=== PATIENT | female | born 1950 | race Caucasian/White ===

== ENCOUNTER 2016-10-30 15:33 | Outpatient (CLI) | payer OTHER | END 2016-10-30 15:34 | disposition home or self-care (01) | DX: C50.919 Malignant neoplasm of unspecified site of unspecified female breast (principal); C79.51 Secondary malignant neoplasm of bone; G89.29 Other chronic pain; F32.9 Major depressive disorder, single episode, unspecified; K30 Functional dyspepsia; F41.9 Anxiety disorder, unspecified; M19.90 Unspecified osteoarthritis, unspecified site; D61.818 Other pancytopenia; R11.0 Nausea; R68.81 Early satiety; N30.90 Cystitis, unspecified without hematuria; R20.0 Anesthesia of skin; L65.9 Nonscarring hair loss, unspecified; M54.6 Pain in thoracic spine; K59.00 Constipation, unspecified; F41.8 Other specified anxiety disorders ==

== ENCOUNTER 2016-11-27 | Outpatient (CLI) | payer OTHER | END 2016-11-27 15:31 | disposition home or self-care (01) ==

== ENCOUNTER 2016-12-25 15:32 | Outpatient (CLI) | payer OTHER | END 2016-12-25 15:33 | disposition home or self-care (01) | DX: Z51.5 Encounter for palliative care (principal); G89.3 Neoplasm related pain (acute) (chronic); C79.51 Secondary malignant neoplasm of bone; C50.919 Malignant neoplasm of unspecified site of unspecified female breast; M16.10 Unilateral primary osteoarthritis, unspecified hip; M47.9 Spondylosis, unspecified; K59.00 Constipation, unspecified; F32.9 Major depressive disorder, single episode, unspecified; R53.83 Other fatigue; Z79.891 Long term (current) use of opiate analgesic ==

== ENCOUNTER 2017-01-16 15:32 | Outpatient (CLI) | payer OTHER ==
[2017-01-16] MEDS ORDERED: GADOBUTROL 7.5 MMOL/7.5 ML VIAL IVP ONE (17:20)
== END 2017-01-16 15:33 | disposition home or self-care (01) ==
DX: C50.919 Malignant neoplasm of unspecified site of unspecified female breast (principal); C79.51 Secondary malignant neoplasm of bone; M48.58XD Collapsed vertebra, not elsewhere classified, sacral and sacrococcygeal region, subsequent encounter for fracture with routine healing; M51.26 Other intervertebral disc displacement, lumbar region; M51.24 Other intervertebral disc displacement, thoracic region; M47.896 Other spondylosis, lumbar region; M47.897 Other spondylosis, lumbosacral region; M43.16 Spondylolisthesis, lumbar region; M51.36 Other intervertebral disc degeneration, lumbar region; M51.37 Other intervertebral disc degeneration, lumbosacral region; M51.34 Other intervertebral disc degeneration, thoracic region

== ENCOUNTER 2017-01-22 15:19 | Outpatient (CLI) | payer OTHER | END 2017-01-22 15:20 | disposition home or self-care (01) | DX: Z51.5 Encounter for palliative care (principal); G89.3 Neoplasm related pain (acute) (chronic); C50.919 Malignant neoplasm of unspecified site of unspecified female breast; C79.51 Secondary malignant neoplasm of bone; M85.80 Other specified disorders of bone density and structure, unspecified site; Z79.891 Long term (current) use of opiate analgesic; R53.83 Other fatigue; R11.0 Nausea; F41.9 Anxiety disorder, unspecified; S32.10XA Unspecified fracture of sacrum, initial encounter for closed fracture; X58.XXXA Exposure to other specified factors, initial encounter; K59.00 Constipation, unspecified ==

== ENCOUNTER 2017-02-19 08:47 | Outpatient (CLI) | payer OTHER | END 2017-02-19 08:48 | disposition home or self-care (01) | LOC: RT 08:47 | PROVIDERS: ATTEND Nurse Practitioner Adult Health | DX: C79.51 Secondary malignant neoplasm of bone (principal); Z79.899 Other long term (current) drug therapy | CPT/HCPCS: 93005 ==

== ENCOUNTER 2017-02-19 13:15 | Outpatient (CLI) | payer OTHER ==
--- NOTE | 2017-02-22 06:27 | CONSULTATION NOTE ---
DATE OF CONSULTATION: 02/19/2017 00:00:00 REQUESTING PROVIDER: Dr. Christelle Feliz TIME OF VISIT: 1500 to 1600. The patient is seen by palliative care consult service to provide ongoing support for pain and sympto m management, as well as goals of care. BRIEF HISTORY OF PRESENT ILLNESS: This is a molly 66-year-old woman who has metastatic breast cancer , currently only involving the bone. She is currently being treated on Ibrance and letrozole since . She is receiving Zometa for the treatment of her bony METS. She most recently had a pelvic MRI of her sacrum, noting an H-type sacral insufficiency fracture, S2, as well as ongoing diffuse sclero tic metastatic disease changes as before and spinal canal narrowing with degenerative changes. Of not e, she also has edema in her left psoas muscle that is considered currently to reflect a grade 1 stra in. Since our last meeting on 01/22/2017, she has continued to have fluctuating pain management issue s, but has had it escalating over the last 2 weeks. Her pain description is actually somewhat a curio sity in the fact she is most uncomfortable when she first wakes up in the morning, after lying flat i n bed, to the point where she is tearful, 10/10 pain, and takes several hours of progressive rest and getting up before she can get comfortable and functional. She actually does fairly decent during the day and then again through the evening and nighttime when she is back in bed does have distress. She reports it is kind of a fiery, achy, radiating pain down her left side. It is hard to tell if it is sacral or L5 in description. Unfortunately, what has happened is she has needed increased oxycodone t o control the pain. She is managing with 20 mg tablets, about 10 in 24 hours. This is up from her bas gabriela previously, which was 6 to 8. She has been mostly wheelchair bound, trying to manage her weight bearing. She has continued with aqua therapy with PT and has really been trying to modify her treatm ent of her activity to try and alleviate pain. Her current long-acting pain medication dosing is meth adone 25 mg t.i.d. and this has managed to keep her quite stable over a longer period of time. Unfort unately, this has caused, as one would imagine, some increased distress and discouragement. Relieving factors include the oxycodone, and actually in the morning when she evacuates her bowels she gets so me decreased pressure as well. She is using other ways to try and manage including medication, distra ction and repositioning. She does continue to have some intermittent cramping and left lower quadrant pain, intermittent nause a and there is concern about her ongoing iron deficiency anemia. She is receiving an iron infusion to day. Is to receive a CT scan on Wednesday to see if there is anything contributing to her discomfort an d looking for an underlying cause of her anemia. She has had 3 positive Hemoccult slides, but she als o has longstanding history of hemorrhoids. REVIEW OF SYSTEMS CONSTITUTIONAL: She continues to have some significant fatigue, intermittent nausea, her appetite has been okay, and intermittent anxiety related to the changes in her status. CARDIOVASCULAR: No chest pain. RESPIRATORY: Some increased shortness of breath. GASTROINTESTINAL: She is managing her bowels on her current regimen, intermittent nausea managed with ondansetron at least once or twice a day. : Some urgency and frequency, particularly in the nighttime hours. MUSCULOSKELETAL: Overall increased weakness. INTEGUMENTARY: Some hair thinning. NEUROLOGIC: Does have baseline numbness in her feet. PSYCHIATRIC: Has been somewhat an emotional roller coaster, particularly with the increase in pain. ENDOCRINE: No history of diabetes or thyroid problems. HEMATOLOGIC/IMMUNOLOGIC: Continues with a hematocrit of 29.3 had a white count of 2.2, platelets 231. Her CA 15-3 has been stable at 11.2. PHYSICAL EXAMINATION GENERAL APPEARANCE: Her color is slightly pale. She does look quite fatigued. Her voice is modulated. HEENT: Eyes are normal on inspection. Mucous membranes are moist. Trachea midline. RESPIRATORY: Breath sounds are clear. MUSCULOSKELETAL: She does have pain behaviors with transfer and ambulation. She is mostly in the whee lchair for exam. CARDIOVASCULAR: Pulse is 72. ABDOMEN: Rounded and soft, not palpated. SKIN: Color pale. EXTREMITIES: She does have her support hose on. PALLIATIVE CARE DISCUSSION: WHO IS PRESENT: Myself and her partner PWinifred Again, explored her current r egimen for pain in the context of how she is feeling, it has been "worse than it has ever been in her life." It has added much to her physical, emotional and existential distress. Is feeling somewhat ov erwhelmed with just the increased dependency and increased distress with this. We did spend quite a b it of time discussing weighing benefits and burdens of intervening with her pain management and also just the uncertainty of the implications for the future as far as dependency. They have finished thei r modifications to their home, which have been of help. ASSESSMENT: This is a 66-year-old woman with escalation continued with her pain, does present with ac quentin on chronic pain that is much more impactful currently, both with physical and emotional distress. Currently with some anxiety, pending workup for her anemia as well. RECOMMENDATIONS/COUNSELING DONE 1. Acute on chronic pain secondary to continued escalating pain in her sacral area. Also presents now with some left leg radiating pain that is quite impactful and distressful. In discussing weighing be nefits and burdens about her pain regimen, she is pushing as far as full equivalents if we do increas e her pain regimen up to 100 mg close, which would be a 10% to 15% increase. I did have her get an EK G for monitoring and her QTc was 428, which is within the safe range. Will go ahead and titrate her u p quite slowly to be able to monitor any side effects including sedation, hoping for improved respons e. Will increase her 5 mg weekly x3 weeks to try and address her escalating pain syndrome. She will c ontinue to get the Zometa as well as work with aqua therapy, which actually does help her and this hernandez s not been escalating her pain. It is of note that it does appear something about nighttime lying in the bed has added or increased her pain. Regarding this, it is unclear if this has to do with her bow els, as she does usually evacuate in the morning, or if it has to do with positioning. She will do so me experiments as far as observation and try some napping and see if this escalates her pain as well. 2. Constipation. She is titrating her medications appropriately. She is due to get a CT scan of her a bdomen to evaluate her bowel status. There is certainly high anxiety and concern about having to part icipate in a colonoscopy given her anastomosis and scar tissue. 3. Fatigue, remains multifactorial in origin. She is pacing her activity, has had increased limitatio ns because of her pain exacerbation. She is using her wheelchair mostly but is participating in PT as well to try and keep her strength up. TIME SPENT: 60 minutes with greater than 50% of this done in counseling and coordination of care. I d id offer her a followup referral to Dr. Goldstein spinal specialist at [facility]. Will keep that in mind bu t continue to work with her current regimen and follow as she is getting her anemia worked up as well . JOB #: [id number] EXT JOB #:[id number]
== END 2017-02-19 13:16 | disposition home or self-care (01) ==
LOC: PC 13:15
PROVIDERS: ATTEND Nurse Practitioner Adult Health
DX: Z51.5 Encounter for palliative care (principal); G89.29 Other chronic pain; K59.00 Constipation, unspecified; R53.83 Other fatigue; C50.919 Malignant neoplasm of unspecified site of unspecified female breast; C79.51 Secondary malignant neoplasm of bone; R60.0 Localized edema; Z79.891 Long term (current) use of opiate analgesic; Z99.3 Dependence on wheelchair; R10.32 Left lower quadrant pain; D64.9 Anemia, unspecified; R11.0 Nausea; F06.4 Anxiety disorder due to known physiological condition; R06.02 Shortness of breath; R35.0 Frequency of micturition; R39.15 Urgency of urination; R20.0 Anesthesia of skin

== ENCOUNTER 2017-02-23 08:07 | Outpatient (CLI) | payer OTHER ==
[2017-02-23] MEDS ORDERED: IOPAMIDOL-300 50 ML VIAL PO ONE (09:46)
[2017-02-23] MEDS ORDERED: IOPAMIDOL-300 100 ML VIAL IVP ONE (09:46)
== END 2017-02-23 08:08 | disposition home or self-care (01) ==
DX: D64.9 Anemia, unspecified (principal)
CPT/HCPCS: 74177; Q9967

== ENCOUNTER 2017-03-26 15:28 | Outpatient (CLI) | payer OTHER ==
--- NOTE | 2017-03-28 11:35 | CONSULTATION NOTE ---
DATE OF CONSULTATION: 03/26/2017 00:00:00 REQUESTING PROVIDER: Harish Feliz MD TIME OF VISIT: 1530 to 1630 hours. The patient is seen by the Palliative Care Consult Service to provide ongoing support for pain and sy mptom management, as well as goals of care. BRIEF HISTORY OF PRESENT ILLNESS UPDATE: This is a molly 66-year-old woman who has metastatic breast cancer stage IV, currently only involving the bone. She is currently being treated with Ibrance and letrozole since 09/2015. She is receiving Zometa for treatment of her bony metastases. She does have sacral insufficiency fractures and ongoing metastatic disease changes and spinal canal narrowing. Since our last meeting on 02/19/2017, the patient was admitted to the [facility] on 06/2017 secondary to chest pain. She was found to have a non-ST elevation myocardial infarction and h ad stenting of the circumflex artery, which was described as "tortuous." Since this was done, her kwabena st pain stopped. Her secondary diagnosis was Takotsubo cardiomyopathy with an ejection fraction of 30 %. She has currently been started on a low-dose Coreg, and the hope is to add ANGIE-inhibitor. She is a lso on an anticoagulant, Plavix, with the goal to discontinue this after a month. Her chronic anemia was found to be stable, she has chronic stage 3 kidney disease, and continues on with her pain relate d to her bony mets and fractures. SYMPTOM BURDEN: Her pain today is a 6/10. She did get some relief being somewhat more bedbound; in th e context of this, we had recently increased her methadone to 30 mg t.i.d. with improving control. rafal does use the oxycodone 20 mg tabs 6-8 tabs in 24 hours. She has been working over the last week to adjust her medications, as she was having a different experience in paying attention at the hospital. Currently she is satisfied with her regimen. She reports her fatigue is still a 6/10, though does fe el like this has improved somewhat with the stenting. Her drowsiness is a 3/10, nausea remains interm ittent at 2/10. Her appetite 2/10. Shortness of breath has improved to 3/10. Her mood has improved wi th a depression 2/10, anxiety 3/10, and perceives her current quality of life with best wellbeing 0, worst wellbeing 10 at a 3/10. She has been managing her bowels, and as well her constipation is curre ntly under control. ALLERGIES 1. DAYPRO, RASH. 2. SULFA INGREDIENT, RASH. SENSITIVITIES INCLUDE: 1. CODEINE. 2. ERYTHROMYCIN. 3. MINOCYCLINE. CURRENT MEDICATION LIST 1. Atorvastatin 40 mg daily. 2. Carvedilol 3.125 half tab q.12 hours. 3. Clopidogrel 75 mg daily. 4. Nitrostat 0.4 mg sublingual q.5 minutes p.r.n. chest pain; may repeat for a total of 3 doses. If c hest pain persists, call 911. 5. Aspirin 81 mg daily. 6. Citracel plus D3 Petites 400 mg/500 international units 2 tabs b.i.d. 7. Cholecalciferol vitamin D3 at 5000 mg daily. 8. Citalopram 10 mg daily. 9. Palbociclib 100 mg tabs 21 days, then off 7 days, then repeat cycle. 10. Letrozole 2.5 mg daily. 11. Liothyronine 25 mcg daily. 12. Metformin 500 mg b.i.d. 13. Methadone 10 mg tablets 3 tabs t.i.d. 14. Oxycodone 20 mg 1-2 tabs q.3 hours p.r.n. breakthrough pain. 15. Omeprazole 40 mg daily. 16. Ondansetron 4 mg up to t.i.d. p.r.n. nausea. 17. Polyethylene glycol MiraLax 17 grams 2/3 capful b.i.d., adjust p.r.n. 18. Senokot 8.6 tabs 1 tab q.a.m., 2 tabs q.p.m., adjust p.r.n. 19. Biotin 500 mcg 3 tabs p.o. daily. 20. Fexofenadine 180 mg p.o. daily. 21. Guaifenesin Mucinex 600 mg extended release p.o. b.i.d. 22. Currently discontinued her Celebrex and Cozaar. REVIEW OF SYSTEMS CONSTITUTIONAL: She overall is feeling like she is improving. She has significant weakness and overal l fatigue related to her adjusting blood pressure medications and hospitalization. CARDIOVASCULAR: No current chest pain. RESPIRATORY: Some still baseline shortness of breath but notes some improvement. GASTROINTESTINAL: Her bowels are moving well. GENITOURINARY: She has had some urgency and frequency. MUSCULOSKELETAL: She has not been able to participate in PT, so some diminished activity tolerance. INTEGUMENTARY: Hair thinning; has had a flare with some eczema. NEUROLOGIC: She has baseline numbness in her feet. PSYCHIATRIC: Please see palliative care discussion below. ENDOCRINE: Hypothyroidism. HEMATOLOGIC/IMMUNOLOGIC: Remains anemic but no decrease in hematocrit. PHYSICAL EXAMINATION GENERAL APPEARANCE: She is slightly pale, does appear fatigued, with some periorbital edema. Her voic e is modulated. She still has some residual almost PTSD from her experience she is describing. HEENT: Eyes are normal on inspection. Mucous membranes are moist. NECK: Trachea midline. RESPIRATORY: Her breath sounds are clear. No crackles, wheezes, or rhonchi. CARDIAC: Her pulse is 85 and regular. No increased change in heart sounds. Blood pressure 125/89; she has been tracking her blood pressures, have remained in a good range. ABDOMEN: Rounded, soft. SKIN: Color pale. EXTREMITIES: No lower extremity edema. PALLIATIVE CARE DISCUSSION/WHO IS PRESENT: Myself, the patient, and her , Cole.Siena. I did have a long discussion, in the context of patient's goals of care. In entering the healthcare system, I had to re iterate multiple times that she was a DO NOT ATTEMPT RESUSCITATION, even in the context of cardiac pr oblems; also did not want to be intubated. Given her goals, and setting those up, we looked at that h er focus is on quality of life, currently treating reversible conditions, and by the end of life a pe aceful and respectful at home. Thus under Medical Interventions, we did put LIMITED ADDITIONAL INTERVENTIONS, noting that we would w eigh the benefits and burdens depending on the intervention offered; further, to DETERMINE USE OR HERNANDEZ ITATION OF ANTIBIOTICS WHEN INFECTION OCCURS, WITH COMFORT THE GOAL - currently she would obviousl y treat, but more towards end of life maybe not; and MEDICALLY ASSISTED NUTRITION - at this point, as far as prolonging suffering at end of life, she would not want this. This did give pause to really bring her to a place of more vulnerability, of one's mortality, certain ly in how she envisions the end of her life was more likely to be in the context of her cancer diagno sis, and so this has really given pause, as far as putting some of her thoughts and feelings and wish es into writing. She was encouraged, in reflection of what had just happened, to put some value statements down, as fa r as what she really does want, as her time comes to an end, or if she were to have another sudden ca tastrophic event. She is in agreement to spend some time on that. Currently, though, she is, of cours e, quite shaken and was encouraged to just take that on when it made sense for her. ASSESSMENT: This is a 66-year-old woman with metastatic breast cancer, metastases to the bone. Curren jacklyny her pain is improving, I suspect this is related to her healing and her medication adjustments. S he recently added yet another diagnosis of cardiomyopathy and is still adjusting to the implications, as well as the medications needed to manage this new diagnosis. RECOMMENDATIONS/COUNSELING DONE 1. Chronic pain secondary to metastatic bone disease, healing sacral fractures, and ongoing chronic d egenerative joint disease. This does appear to have improved somewhat. She will continue on the curre nt regimen and continue logging to evaluate her patterns and response. 2. Constipation. She is titrating her medications appropriately. Her CT scan shows no areas of concer n regarding possible metastatic disease or colon cancer, so has been advised to follow up with a mirlande rointestinal doctor regarding colonoscopy. Her appointment is on 04/14/2016. She continues to struggl e, as far as the implications regarding this. 3. Fatigue, remains multifactorial in origin, now seems suspect that it may have been also impacted b y her cardiomyopathy and need for stenting. She remains anemic but does feel with a little bit more e nergy, is hoping her quality of life will continue to improve. She is on new medications regarding th is. 4. Cardiomyopathy. The patient is currently monitoring her blood pressure. Plan is to follow up with her internal medicine doctor on Wednesday, continue adjusting medications to maximum therapy, and follow up with Dr. Greenfield for ongoing support. 5. Advanced care planning. POLST was completed, goals were reviewed, and psychosocial support was giv en. Time spent 60 minutes, with greater than 50% of this done in evaluating symptom management, reviewing recent hospitalization, and advanced care planning and anticipatory guidance. JOB #: [id number] EXT JOB #:[id number]
== END 2017-03-26 15:29 | disposition home or self-care (01) ==
LOC: PC 15:28
PROVIDERS: ATTEND Nurse Practitioner Adult Health
DX: Z51.5 Encounter for palliative care (principal); G89.29 Other chronic pain; M19.90 Unspecified osteoarthritis, unspecified site; C79.51 Secondary malignant neoplasm of bone; C50.919 Malignant neoplasm of unspecified site of unspecified female breast; K59.00 Constipation, unspecified; I51.81 Takotsubo syndrome; R53.83 Other fatigue; F41.9 Anxiety disorder, unspecified; M84.454D Pathological fracture, pelvis, subsequent encounter for fracture with routine healing; I25.2 Old myocardial infarction; Z95.5 Presence of coronary angioplasty implant and graft; Z79.02 Long term (current) use of antithrombotics/antiplatelets; R11.0 Nausea; R06.02 Shortness of breath; F32.9 Major depressive disorder, single episode, unspecified; Z99.3 Dependence on wheelchair; Z79.891 Long term (current) use of opiate analgesic; Z79.899 Other long term (current) drug therapy; Z66 Do not resuscitate
CPT/HCPCS: 99215

== ENCOUNTER 2017-04-28 14:52 | Emergency (ER) | payer OTHER ==
[2017-04-28 15:24] LABS: BILIRUBIN,URINE NEGATIVE (NEGATIVE); UA CHARGE (STRIP ONLY) YES; UR CULTURE IF IND NOT INDICATED
--- NOTE | 2017-04-28 16:59 | ED Physician Documentation ---
PD HPI ABD PAIN - Stated complaint Stated Complaint: ABD PX - Chief complaint Chief Complaint: Abd Pain - History obtained from History obtained from: Patient, Family (spouse, PC Cable) - History of Present Illness Timing - onset: Other (She developed spasmodic upper abdominal cramping that is nonradiating this morning. She had it a few times and then it got worse after lunch. Each episode lasted a few minutes at a time. Is generally getting better now. She was quite nauseous with it but never vomited. No changes in her bowel movements. She did have a bowel movement this morning.) - Additional information Additional information: She has active breast cancer with bony metastasis, she has a history of ruptured diverticulitis with colostomy and subsequent takedown and also cholecystectomy. Review of Systems Ten Systems: 10 systems reviewed and negative Constitutional: denies: Fever, Chills Throat: denies: Dental pain / toothache Cardiac: denies: Chest pain / pressure, Palpitations Respiratory: denies: Dyspnea, Cough GI: denies: Diarrhea, Hematemesis, Bloody / black stool PD PAST MEDICAL HISTORY - Past Medical History Cardiovascular: Hypertension Respiratory: None Neuro: None Endocrine/Autoimmune: None, HyPOthyroidism GI: Diverticulitis : Chronic bladder infection, Kidney stones HEENT: Chronic hearing loss Psych: Depression, Anxiety Musculoskeletal: Osteoarthritis Derm: Eczema - Past Surgical History Past Surgical History: Yes General: Bowel surgery, Colonoscopy Ortho: Knee replacement - Present Medications Home Medications: Ambulatory Orders Medication Instructions Recorded Confirmed Aspirin 81 mg PO DAILY 02/16/13 04/27/17 Levothyroxine [Synthroid] 25 mcg PO DAILY 02/16/13 04/27/17 Polyethylene Glycol 3350 [Miralax] 0.66 cap PO DAILY PRN 03/26/15 04/27/17 Escitalopram Oxalate [Lexapro] 25 mg PO DAILY 05/21/15 04/27/17 Letrozole 2.5 mg PO DAILY 10/07/15 04/27/17 Palbociclib [Ibrance] 1 tab PO DAILY 10/07/15 04/27/17 Ondansetron HCl [Zofran] 4 mg PO Q6H PRN 11/15/15 04/27/17 Omeprazole [PriLOSEC] 20 mg PO DAILY 12/17/15 04/27/17 Oxycodone HCl 20 mg PO Q4H PRN 02/11/16 04/27/17 Phenazopyridine [Pyridium] 1 tab PO TID PRN 05/05/16 04/27/17 Prochlorperazine [Compazine] 5 mg PO ONCE PRN 05/05/16 04/27/17 Methadone 30 mg PO TID 06/30/16 04/27/17 Atorvastatin [Lipitor] 40 mg PO DAILY 03/30/17 04/27/17 Carvedilol 3.125 mg PO BID 03/30/17 04/27/17 Clopidogrel [Plavix] 75 mg PO DAILY 03/30/17 04/27/17 Gabapentin 300 mg PO TID 04/27/17 04/27/17 Nitroglycerin 0.4 mg SL TID 04/27/17 04/27/17 metFORMIN [Glucophage] 500 mg PO BIDWM 04/27/17 04/27/17 - Allergies Allergies/Adverse Reactions: Allergies Allergy/AdvReac Type Severity Reaction Status Date / Time oxaprozin [From Daypro] Allergy Intermediate Rash Verified 03/30/13 10:21 sulfamethoxazole Allergy Intermediate Rash Verified 02/16/13 00:35 [From ] erythromycin base AdvReac Intermediate Cramps Verified 02/16/13 01:01 [Erythromycin Base] minocycline [Minocycline] AdvReac Intermediate Cramps Verified 02/16/13 01:00 codeine [Codeine] AdvReac Mild Cramps Verified 02/16/13 01:00 meperidine AdvReac Unknown Anxiety Verified 07/25/13 10:12 - Social History Does the pt smoke?: No Smoking Status: Never smoker Does the pt drink ETOH?: Yes Does the pt have substance abuse?: No - Immunizations Immunizations are current?: Yes - POLST Patient has POLST: No PD ED PE NORMAL - Vitals Vital signs reviewed: Yes - General General: Alert and oriented X 3, No acute distress - HEENT HEENT: PERRL, EOMI - Neck Neck: Supple, no meningeal sign, No bony TTP - Cardiac Cardiac: RRR, No murmur - Respiratory Respiratory: No respiratory distress, Clear bilaterally - Abdomen Abdomen: Other (Soft with hyperactive bowel tones, mild diffuse tenderness especially on the left.) - Back Back: No CVA TTP, No spinal TTP - Derm Derm: Normal color, Warm and dry - Extremities Extremities: No edema, No calf tenderness / cord - Neuro Neuro: Alert and oriented X 3, Normal speech - Psych Psych: Normal mood, Normal affect Results - Vitals Vitals: Vital Signs - 24 hr 04/28/17 04/28/17 15:01 17:59 Temperature 36.6 C Heart Rate 73 71 Respiratory 16 12 Rate Blood Pressure 124/87 H 112/80 O2 Saturation 99 98 Oxygen O2 Source Room air - Labs Labs: Laboratory Tests 04/28/17 04/28/17 04/28/17 15:10 17:27 17:27 WBC 2.6 L RBC 3.12 L Hgb 10.5 L Hct 32.2 L MCV 103.2 H MCH 33.8 H MCHC 32.7 RDW 16.9 H Plt Count 202 MPV 6.3 L Neut # 1.4 L Lymph # 0.7 L Haralson # 0.4 Eos # 0.1 Baso # 0.1 Absolute Nucleated RBC 0.00 Nucleated RBCs 0.0 Manual Slide Review Indicated WBC Morphology NORMAL APPEARANCE Platelet Estimate NORMAL (130-450,000) Platelet Morphology RARE GIANT PLATELETS RBC Morph Micro Appear 1+ MACROCYTOSIS Sodium 139 Potassium 3.8 Chloride 101 Carbon Dioxide 31 Anion Gap 7.0 BUN 11 Creatinine 1.2 H Estimated GFR (MDRD) 45 L Glucose 101 H Calcium 9.6 Total Bilirubin 0.4 AST 22 ALT 16 Alkaline Phosphatase 56 Total Protein 7.0 Albumin 3.6 Globulin 3.4 Albumin/Globulin Ratio 1.1 Lipase 22 Urine Color YELLOW Urine Clarity CLEAR Urine pH 6.0 Ur Specific [place] <=1.005 Urine Protein NEGATIVE Urine Glucose (UA) NEGATIVE Urine Ketones NEGATIVE Urine Occult Blood NEGATIVE Urine Nitrite NEGATIVE Urine Bilirubin NEGATIVE Urine Urobilinogen 0.2 (NORMAL) Ur Leukocyte Esterase NEGATIVE Ur Microscopic Review NOT INDICATED Urine Culture Comments NOT INDICATED - Rads (name of study) CT A/P Radiology: EMP read contemporaneously (Some small areas of dilated bowel, likely the cause of her pain, other chronic and incidental findings.) PD MEDICAL DECISION MAKING - ED course ED course: From her description and the CT read, I presume she is having some pain intermittently from adhesions holding up her bowel but there is no evidence of bowel obstruction at this juncture, soft diet, low residue was encouraged for the next day. Departure - Departure Disposition: 01 Home, Self Care Clinical Impression: Abdominal pain Qualifiers: Abdominal location: generalized Qualified Code(s): R10.84 - Generalized abdominal pain Condition: Good Record reviewed to determine appropriate education?: Yes Instructions: Abdominal Pain Comments: Soft low residue diet for the next 24 hours as discussed. Return if worse.
[2017-04-28 17:35] LABS: BASOPHILS # (AUTO) 0.1 10^3/uL (0.0-0.1); BASOPHILS % (AUTO) 2.8 %; EOSINOPHILS # (AUTO) 0.1 10^3/uL (0.0-0.7); EOSINOPHILS % (AUTO) 2.3 %; HCT - HEMATOCRIT 32.2 % (37.0-47.0); HGB - HEMOGLOBIN 10.5 g/dL (12.0-16.0); LYMPHOCYTES # (AUTO) 0.7 10^3/uL (1.5-3.5); LYMPHOCYTES % (AUTO) 25.5 %; MEAN CORPUSCULAR HEMOGLOBIN 33.8 pg (27.0-31.0); MEAN CORPUSCULAR HGB CONC 32.7 g/dL (32.0-36.0); MEAN CORPUSCULAR VOLUME 103.2 fL (81.0-99.0); MEAN PLATELET VOLUME 6.3 fL (7.9-10.8); MONOCYTES # (AUTO) 0.4 10^3/uL (0.0-1.0); MONOCYTES % (AUTO) 16.5 %; NEUTROPHILS # (AUTO) 1.4 10^3/uL (1.5-6.6); NEUTROPHILS % (AUTO) 52.9 %; RED BLOOD COUNT 3.12 10^6/uL (4.20-5.40); RED CELL DISTRIBUTION WIDTH 16.9 % (12.0-15.0); UNCORRECTED WHITE BLOOD COUNT 2.6 x10^3/uL; WHITE BLOOD COUNT 2.6 x10^3/uL (4.8-10.8)
[2017-04-28] MEDS ORDERED: IOPAMIDOL-300 100 ML VIAL IVP ONE (17:40)
[2017-04-28 17:46] LABS: ALBUMIN/GLOBULIN RATIO 1.1 (1.0-2.2); BILIRUBIN,TOTAL 0.4 mg/dL (0.2-1.0); CALCIUM 9.6 mg/dL (8.5-10.3); CREATININE 1.2 mg/dL (0.4-1.0); POTASSIUM 3.8 mmol/L (3.5-5.0)
[2017-04-28 17:59] VITALS: BP 112/80
[2017-04-28 18:09] LABS: PLATELET ESTIMATE, MANUAL NORMAL (130-450,000) (NORMAL); PLATELET MORPHOLOGY RARE GIANT PLATELETS (NORMAL)
[2017-04-28 18:10] LABS: WBC MORPHOLOGY (MULTIPLE) NORMAL APPEARANCE (NORMAL)
--- NOTE | 2017-04-28 18:24 | CT Report ---
EXAM: CT ABDOMEN AND PELVIS EXAM DATE: 04/28/2017 05:47 PM. CLINICAL HISTORY: IV only, abd pain, ?divertic ulitis. COMPARISONS: 02/23/2017 CT. TECHNIQUE: Routine helical CT imaging was performed through the abdomen and pelvis. IV contrast: 100 mL Isovue-300. Enteric contrast: No. Reconstructions: Coronal and sagittal. In accordance with CT protocol optimization, one or more of the following dose reduction techniques w ere utilized for this exam: automated exposure control, adjustment of mA and/or KV based on patient s ize, or use of iterative reconstructive technique. FINDINGS: Lung Bases: Unremarkable. Liver: Normal. No masses. Gallbladder/Bile Ducts: Removed Spleen: Normal. Pancreas: Normal. Adrenal Glands: Normal. Kidneys: No renal mass or hydronephrosis. Small lobulated left kidney. Peritoneal Cavity/Bowel: There has been previous distal colon and small bowel resection. A short segm ent of mildly dilated bowel is seen within the pelvis however no evidence of high-grade mechanical tuan wel obstruction. No free air or fluid collections. No evidence of appendicitis. Pelvic Organs: Normal. The bladder and visualized pelvic organs are within normal limits. Vasculature: No aneurysms or other significant abnormality. Bones: Innumerable osteoblastic metastases. Again noted are bilateral sacral and right pubis fracture s. Other: There are 2 small omentum-containing supraumbilical hernias. At least 2 omentum containing mid line infraumbilical hernias are also seen. IMPRESSION: 1. No evidence of diverticulitis. There is a short segment of mildly dilated distal small bowel withi n the pelvis otherwise no high-grade obstruction or fluid collections. 2. Multiple fat-containing midline ventral hernias. 3. Widespread osteoblastic metastases noting chronic sacral and right pubic bone fractures. [facility] Referring Provider Line: [phone] SITE ID: [id number]
== END 2017-04-28 18:50 | disposition home or self-care (01) ==
LOC: ED 14:52
DX: R10.84 Generalized abdominal pain (principal); C50.919 Malignant neoplasm of unspecified site of unspecified female breast; C79.51 Secondary malignant neoplasm of bone; I10 Essential (primary) hypertension; Z96.659 Presence of unspecified artificial knee joint; Z79.82 Long term (current) use of aspirin
CPT/HCPCS: 36415; 74177; 80053; 81003; 83690; 85025; 99283; 99284; Q9967; 81001; 87086

== ENCOUNTER 2017-05-06 15:32 | Outpatient (CLI) | payer OTHER ==
--- NOTE | 2017-05-06 22:39 | PROVIDER PROGRESS NOTE ---
Palliative Care Follow Up - Referral Referring Provider: Dr. Feliz Time of Visit: [id number] [place] [facility] [place] Reason: Pain of neoplastic origin - Information Sources Records Reviewed: Old records reviewed History obtained from: Patient Exam limitations: No limitations - History of Present Illness Update Brief HPI Update: This a molly 67 year old woman with breast cancer with metastatic disease to the bone. She is currently being treated with Ibrance and letrozole since 2014. She has had a complicated course with sacral fractures resulting in acute on chronic pain, and most recently has a small bump in her CA 15-3 to 14.8. The neuropathic component of her pain which she had developed right sided sciatica pattern a few weeks ago, is responding nicely to the gabapentin, and her baseline pain currently controlled on her opioid regimen of methadone 10 mg TID with oxycodone 20 1-2 tabs for BTP. She has had continued weight loss, does not feel concerned, has low grade anorexia but eating healthy, hope was to loose some weight to aid healing and stress on pelvic region. She did present to the ED on04/28 with symptoms of pending bowel obstruction, CT scan showed dilitation, did resolve with time and low residue diet, is concentrating on keeping bowels soft. She has adhesions from previous colostomy and surgery. Is due to see GI MD for EGD in a couple of weeks, continued work up of anemia, though has stayed stable. Has had no further sequela from her cardiac issues. Social History - Living Situation Living arrangement: At home Living Situation: With spouse/s.o. Support System: Has many friends who provide support, participates in [employer], sister is coming for the weekend to give respite and for visit, patient looking forward to visit Medications/Allergies - Medications Home Medications: Ambulatory Orders Medication Instructions Recorded Confirmed Aspirin 81 mg PO DAILY 02/16/13 05/06/17 Polyethylene Glycol 3350 [Miralax] 0.66 cap PO DAILY PRN 03/26/15 05/06/17 Letrozole 2.5 mg PO DAILY 10/07/15 05/06/17 Palbociclib [Ibrance] 1 tab PO DAILY 10/07/15 05/06/17 Ondansetron HCl [Zofran] 4 mg PO TID 11/15/15 05/06/17 Omeprazole [PriLOSEC] 40 mg PO DAILY 12/17/15 05/06/17 Methadone 30 mg PO TID 06/30/16 05/06/17 Atorvastatin [Lipitor] 40 mg PO DAILY 03/30/17 05/06/17 Carvedilol 3.125 mg PO BID 03/30/17 05/06/17 Clopidogrel [Plavix] 75 mg PO DAILY 03/30/17 05/06/17 Gabapentin 300 mg PO TID 04/27/17 05/06/17 Nitroglycerin 0.4 mg SL TID 04/27/17 05/06/17 metFORMIN [Glucophage] 500 mg PO BIDWM 04/27/17 05/06/17 Biotin 1,500 mcg PO DAILY 05/06/17 05/06/17 Best Cit/Mag/D3/Zn/County Assessor/Yahir/Bor 2 tab PO BID 05/06/17 05/06/17 [Citracal-Vit D + Magnesium Tab] Cholecalciferol [Vitamin D3] 5,000 unit PO DAILY 05/06/17 05/06/17 Citalopram [CeleXA] 10 mg PO DAILY 05/06/17 05/06/17 Fexofenadine HCl 180 mg PO DAILY 05/06/17 05/06/17 Guaifenesin [Mucinex] 600 mg PO BID 05/06/17 05/06/17 Liothyronine [Cytomel] 25 mcg PO DAILY 05/06/17 05/06/17 Oxycodone HCl 20 - 40 mg PO Q3HR PRN 05/06/17 05/06/17 Sennosides [Senna Lax] 2 tab PO BID PRN 05/06/17 05/06/17 - Allergies Allergies/Adverse Reactions: Allergies Allergy/AdvReac Type Severity Reaction Status Date / Time oxaprozin [From Daypro] Allergy Intermediate Rash Verified 03/30/13 10:21 sulfamethoxazole Allergy Intermediate Rash Verified 02/16/13 00:35 [From ] erythromycin base AdvReac Intermediate Cramps Verified 02/16/13 01:01 [Erythromycin Base] minocycline [Minocycline] AdvReac Intermediate Cramps Verified 02/16/13 01:00 codeine [Codeine] AdvReac Mild Cramps Verified 02/16/13 01:00 meperidine AdvReac Unknown Anxiety Verified 07/25/13 10:12 Review of Systems - Constitutional Constitutional: reports: Poor appetite, Weight loss (181) - Eyes Eyes: denies: Irritation, Blurred vision - Ears, Nose & Throat Ears, Nose & Throat: reports: Hearing loss, Hearing aids, Nasal congestion - Cardiovascular Cariovascular: denies: Irregular heart rate, Palpitations, Chest pain - Respiratory Respiratory: reports: SOB with exertion. denies: Cough, Orthopnea, SOB at rest - Gastrointestinal Gastrointestinal: reports: Constipation. denies: Abdominal pain, Abdominal distention, Black stools, Nausea, Coffee grounds emesis - Genitourinary Genitourinary: reports: Frequency, Incontinence (mild at night) - Musculoskeletal Musculoskeletal: reports: Back pain, Muscle aches, Stiffness, Limited range of motion, Muscle weakness, Joint pain - Integumentary Integumentary: reports: Dryness, Hair changes (thining) - Neurological Neurological: reports: Numbness (no change). denies: Headache - Psychiatric Psychiatric: denies: Depression, Anxiety - Endocrine Endocrine: reports: Other (hypothyroidism). denies: Intolerance to cold, Intolerance to heat - Hematologic/Lymphatic Hematologic/Lymphatic: reports: Anemia (no change baseline), Bruising (notes with plavix). denies: Recurrent infections - All Other Systems All Other Systems: reports: Reviewed and negative Physical Examination - Vital Signs Pulse Rate: 66 Respiratory Rate: 18 Blood Pressure: 131/82 - Physical Exam General Appearance: positive: Alert Eyes Bilateral: positive: Normal inspection ENT: positive: No signs of dehydration Neck: positive: Trachea midline Respiratory: positive: Breath sounds nml. negative: Wheezes, Rales, Rhonchi Cardiovascular: positive: Regular rate & rhythm Abdomen: positive: Nml bowel sounds Skin: positive: Pallor, Dryness Extremities: positive: Nml appearance, No pedal edema, Other (mostly wheel chair bound) Neurologic/Psychiatric: positive: Oriented x3, Mood/affect nml Palliative Care - POLST Patient has POLST: Yes POLST Status: DNR, Limited Interventions Pain: Pain improved, Location (pelvis/sacrum; neuropathic component down right leg), Severity (improved 4/10 decreased oxycodone use last couple of day; encouraged may be result of healing/weight loss; new pain in left neck area, describes as tension/muscular in nature) Nausea: None Anxiety: None Dyspnea: None Anorexia: Severe (7-10) (weight loss mixed intentional with decreased appetite, would benefit from decreased weight, reports she is eating healthy and just less portions) Insomnia: Sleep improved Constipation: Yes, Opoid induced, Managed Feelings of wellbeing/Perceived Quality of Life: Improved Performance Status: Patient mostly limited by limited weight bearing status, has set up to be able to mobilize with w/c in home; shower etc. Does have some limiting fatigue for household tasks etc. Is continuing to benefit from aqua therapy, has a maintenance program interspersed. - Palliative Care Discussion: LAUREN completed last visit, will confirm copies to HIM. She reports she is feeling better with improved pain, and enjoying time now in her [facility]. Very encouraged with current plateau she is on despite the complications she has come up against the last few months. Feeling settled currently. Results - Lab Results Lab results reviewed: Yes Impression and Recommendations - Palliative Care Impression: This is a 67 year old woman with breast Ca and josé mets, healing sacral fractures, and improved pain management. Symptoms currently managed, satisfied given her current situation with her improved quality of life. Recommendations/Counseling Done: 1. Pain of neoplastic origin, currently doing well on new regimen. Feels gabapentin 300 mg appears to be titrated to effect and will hold at least 2 weeks before titrating further if needed. 2. Constipation, noted smaller caliber of stools, still adjusting bowel program but improving. 3. Weight loss, of concern in the context of metastatic disease, but focus on healthy eating, and benefits pain management. 4. Neck Pain.Counseling to use heat and light massage if muscular in origin, will notify me if not improving or worsening at risk for more sequela of mets. 5. Fatigue with some improvement. Is participating in excercise program. 6. Advanced care planning. POLST in place no other planning issues currently identified, working on legacy work with writing, and respite arranged for upcoming too. Time Spent: 60 minutes with greater than 50% spent on counseling for symptom managment of pain, anticipatory guidance.
== END 2017-05-06 15:33 | disposition home or self-care (01) ==
LOC: PC 15:32
PROVIDERS: ATTEND Nurse Practitioner Adult Health
DX: Z51.5 Encounter for palliative care (principal); G89.3 Neoplasm related pain (acute) (chronic); C50.919 Malignant neoplasm of unspecified site of unspecified female breast; C79.51 Secondary malignant neoplasm of bone; M54.31 Sciatica, right side; R63.0 Anorexia; M54.2 Cervicalgia; K59.03 Drug induced constipation; T40.2X5S Adverse effect of other opioids, sequela; Z66 Do not resuscitate; R53.83 Other fatigue
CPT/HCPCS: 99215

== ENCOUNTER 2017-06-11 15:17 | Outpatient (CLI) | payer OTHER ==
--- NOTE | 2017-06-11 18:14 | PROVIDER PROGRESS NOTE ---
Palliative Care Follow Up - Referral Referring Provider: Dr. Christelle Feliz Time of Visit: [phone] Referral setting: [facility] [place]erral Reason: Pain of neoplastic origin - Information Sources Records Reviewed: Old records reviewed History obtained from: Patient, Family ( accompanying her on visit) Exam limitations: No limitations Social History - Living Situation Living arrangement: At home Living Situation: With spouse/s.o. 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 Medications/Allergies - Medications Home Medications: Ambulatory Orders Medication Instructions Recorded Confirmed Aspirin 81 mg PO DAILY 02/16/13 05/06/17 Polyethylene Glycol 3350 [Miralax] 0.66 cap PO DAILY PRN 03/26/15 05/06/17 Letrozole 2.5 mg PO DAILY 10/07/15 05/06/17 Palbociclib [Ibrance] 1 tab PO DAILY 10/07/15 05/06/17 Ondansetron HCl [Zofran] 4 mg PO TID 11/15/15 05/06/17 Omeprazole [PriLOSEC] 40 mg PO DAILY 12/17/15 05/06/17 Methadone 30 mg PO TID 06/30/16 05/06/17 Atorvastatin [Lipitor] 40 mg PO DAILY 03/30/17 05/06/17 Carvedilol 3.125 mg PO BID 03/30/17 05/06/17 Gabapentin 300 mg PO TID 04/27/17 05/06/17 Nitroglycerin 0.4 mg SL TID 04/27/17 05/06/17 metFORMIN [Glucophage] 500 mg PO BIDWM 04/27/17 05/06/17 Biotin 1,500 mcg PO DAILY 05/06/17 05/25/17 Best Cit/Mag/D3/Zn/Rooming House Inspector/Yahir/Bor 2 tab PO BID 05/06/17 05/25/17 [Citracal-Vit D + Magnesium Tab] Cholecalciferol [Vitamin D3] 5,000 unit PO DAILY 05/06/17 05/25/17 Citalopram [CeleXA] 10 mg PO DAILY 05/06/17 05/25/17 Fexofenadine HCl 180 mg PO DAILY 05/06/17 05/25/17 Guaifenesin [Mucinex] 600 mg PO BID 05/06/17 05/25/17 Liothyronine [Cytomel] 25 mcg PO DAILY 05/06/17 05/25/17 Oxycodone HCl 20 - 40 mg PO Q3HR PRN 05/06/17 05/25/17 Sennosides [Senna Lax] 2 tab PO BID PRN 05/06/17 05/25/17 - Allergies Allergies/Adverse Reactions: Allergies Allergy/AdvReac Type Severity Reaction Status Date / Time oxaprozin [From Daypro] Allergy Intermediate Rash Verified 03/30/13 10:21 sulfamethoxazole Allergy Intermediate Rash Verified 02/16/13 00:35 [From Septra] erythromycin base AdvReac Intermediate Cramps Verified 02/16/13 01:01 [Erythromycin Base] minocycline [Minocycline] AdvReac Intermediate Cramps Verified 02/16/13 01:00 codeine [Codeine] AdvReac Mild Cramps Verified 02/16/13 01:00 meperidine AdvReac Unknown Anxiety Verified 07/25/13 10:12 Review of Systems - Constitutional Constitutional: reports: Fatigue, Weakness, Diaphoresis (with activity), Weight loss - Eyes Eyes: reports: Vision loss, Corrective lenses - Ears, Nose & Throat Ears, Nose & Throat: reports: Hearing loss, Hearing aids - Cardiovascular Cariovascular: reports: Decr. exercise tolerance. denies: Chest pain, Edema - Respiratory Respiratory: reports: SOB with exertion. denies: Cough - Gastrointestinal Gastrointestinal: reports: Abdominal pain (intermittent and connected to constipation/bowel movements), Reflux/heartburn, Bloating, Other (hemorrhoids). denies: Rectal bleeding, Bloody stools - Genitourinary Genitourinary: reports: Frequency (at night), Urgency - Musculoskeletal Musculoskeletal: reports: Back pain, Muscle aches, Stiffness, Muscle weakness - Integumentary Integumentary: reports: Dryness, Hair changes (some alopecia) - Neurological Neurological: reports: General weakness, Memory problems (mild), Abnormal gait ( mostly wheelchair bound; has tried ambulating with walker with increased pain) - Psychiatric Psychiatric: reports: Anxiety - Endocrine Endocrine: reports: Other (diabetes type II controlled) - Hematologic/Lymphatic Hematologic/Lymphatic: reports: Anemia (Had EGD which was negative; continues to struggle whether to proceed with colonoscopy weighing benefits and burdens; oncologist recommends strongly to move forward; GI through it was going to be upper GI; has stricture so her and 's concern not only about her being able to tolerate prep but about her stricture and complications;) - All Other Systems All Other Systems: reports: Reviewed and negative Physical Examination - Vital Signs Pulse Rate: 61 Respiratory Rate: 18 O2 Saturation: 99 (ra at rest) Blood Pressure: 109/76 - Physical Exam General Appearance: positive: Mild distress (having some escalatin of pain at beginning of visit) Eyes Bilateral: positive: Normal inspection ENT: positive: No signs of dehydration Neck: positive: No JVD, Trachea midline Respiratory: positive: Breath sounds nml Cardiovascular: positive: Regular rate & rhythm Abdomen: positive: Tenderness, Other (decreased) Skin: positive: Pallor Extremities: positive: Non-tender, Pedal edema (slight; without support hose on today) Neurologic/Psychiatric: positive: Oriented x3, Mood/affect nml, Weakness Palliative Care - POLST Patient has POLST: Yes POLST Status: DNR, Limited Interventions Pain: Pain worsening, Location (describes in buttocks and sharp shooting down legs; her "nerve" pain component; unclear if related to increase in activity; worse at night) Drowsiness: Severe (7-10) (fatigue overall much more prominent; when physically exerts "breaks out in a sweat") Nausea: Mild (1-3) (2-3 times a week-can link to GI functions/bowels) Anxiety: Mild (1-3) (struggling with decision making about colonoscopy) Dyspnea: None Anorexia: Moderate (4-6) Insomnia: Sleeps poorly (up at night to void; some increase in pain) Constipation: Yes, Opoid induced, Managed Feelings of wellbeing/Perceived Quality of Life: Comment (rates 7/10 with 0= best well being 10 worset) Performance Status: Patient able to take a few steps; tolerating walking fluctuates and can exacerbate pain; going to the pool twice a week; shower set up so that she can be mostly independent; independent with w/c mobility at home; able to drive short distances - Palliative Care Discussion: Patient expressing some disappointment in not being more functional at this point; had hoped her "healing" would be further along with her fractures; she is able to independently manage most of her ADLs, doing PT twice a week in the pool; and participating in some household tasks that give her some satisfaction. She is wondering about how long the Ibrance will hold things in check; her cardiac status has been stable is due for ECHO on 06/15. Struggling with feeling supported in her decision not to do colonoscopy, see's primary care next week too. Results - Lab Results Lab results reviewed: Yes Lab and Imaging Results: WBC 2.9; RBC 2.72; Hgb 9.2; Hct 28.4 holding it's own; GFR 39 Creat 1.4 numbers have worsened; CA 15-3 13.8; down form April 14.8 Impression and Recommendations - Palliative Care Impression: This is a 67 year old woman with lobular breast CA and josé mets; healing sacral fractures; and acute on chronic pain syndrome. She is having significant fatigue and some increase in her symptom burden. Continues to struggle with the limitations as a result of the sequela of her disease. Recommendations/Counseling Done: 1. Acute on Chronic Pain, neoplastic in origin, multifactorial. Reviewed current regimen, methadone 30 mg TID; gabapentin 300 mg TID; and oxycodone 20 mg tabs about 6-8 24hr period. Discussed new acute component most likely more neuropathic in nature. Will try adding 100 mg at night to see if this helps as most noted at bedtime/interfering with sleep. New RX for methadone and oxycodone provided. Counseling on triggers as well, pacing activity, and recommended NOT vacuuming. 2. Fatigue, multifactorial in origin. Patient is pancytopenic, not just anemic, patient hoping it can be attributed to the Ibrance, she also has CKD with some worsening of function. Counseling and support given the concerns with risks may outweigh the benefit; concerned positive stool may also be attributed to hemmorhoids external/internal. Support given to consider follow upwith PCP of another stool card set when hemorrhoids improved. Fluctuate according to bowel program. 3. Anxiety. Counseling to normalize feelings of disappointment with diminished independence and QOL. 4. Advance care planning. POLST in place, currently still focusing on chronicity of illness, aware though fragile state. Time Spent: Time spent 60 minutes with greater than 50% done in counseling for pain management and anticipatory guidance.
== END 2017-06-11 15:18 | disposition home or self-care (01) ==
LOC: PC 15:17
PROVIDERS: ATTEND Nurse Practitioner Adult Health
DX: Z51.5 Encounter for palliative care (principal); G89.3 Neoplasm related pain (acute) (chronic); C50.919 Malignant neoplasm of unspecified site of unspecified female breast; C79.51 Secondary malignant neoplasm of bone; R40.0 Somnolence; R11.0 Nausea; R63.0 Anorexia; G47.00 Insomnia, unspecified; F41.9 Anxiety disorder, unspecified; R53.83 Other fatigue; K59.03 Drug induced constipation; T40.2X5S Adverse effect of other opioids, sequela; Z79.891 Long term (current) use of opiate analgesic; Z66 Do not resuscitate
CPT/HCPCS: 99215

== ENCOUNTER 2017-06-15 08:13 | Outpatient (CLI) | payer OTHER | END 2017-06-15 08:14 | disposition home or self-care (01) | LOC: DI 08:13 | PROVIDERS: ATTEND Internal Medicine Cardiovascular Disease | DX: I21.4 Non-ST elevation (NSTEMI) myocardial infarction (principal); Z95.5 Presence of coronary angioplasty implant and graft; I10 Essential (primary) hypertension | CPT/HCPCS: 93306 ==

== ENCOUNTER 2017-07-12 11:58 | Outpatient (CLI) | payer OTHER ==
[2017-07-12] MEDS ORDERED: GADOBUTROL 10 MMOL/10 ML VIAL ONE (12:28)
[2017-07-12] MEDS ORDERED: GADOBUTROL 10 MMOL/10 ML VIAL IVP ONE (13:40)
--- NOTE | 2017-07-12 15:09 | MRI Report ---
EXAM: MRI LUMBAR SPINE WITHOUT AND WITH CONTRAST EXAM DATE: 07/12/2017 02:00 PM. CLINICAL HISTORY: RT RADICULOPATHY, INCREASING BACK/SACRAL PAIN. SHOOTING PAIN TO RT BUTTOCK, LEG . HX OF BREAST CA - METS TO BONE. COMPARISONS: MRI LUMBAR SPINE WITHOUT AND WITH CONTRAST 01/16/2017. TECHNIQUE: Multiplanar, multisequence T1-weighted and fluid-sensitive sequences of the lumbar spine f rom T12 to S1 before and after administration of intravenous contrast. IV contrast: 6 cc Gadavist. Ot her: None. FINDINGS: Images are degraded by patient motion artifacts. Spinal Cord: The conus terminates at L1. No signal abnormality in the visualized spinal cord. Alignment: No significant interval change in the mild scoliosis and the L4-L5 7 mm anterolisthesis. Bone Marrow: Five [id number] lumbar vertebral bodies are assumed. No significant interval change in the multiple predominantly osteoblastic bony metastases involving the vertebral bodies and electric motor assembler ior elements involving the visualized lumbar, lower thoracic and sacral spines. H-type sacral fractur e with transverse component across S2. Disk Levels/Facets: T12-L1: No significant interval change. Mild posterior disk bulging. No spinal stenosis, foraminal na rrowing or nerve impingement. Mild facet arthropathy without effusion or juxtaarticular edema. L1-L2: No significant interval change. Mild posterior disk bulging. No spinal stenosis, foraminal joe rowing or nerve impingement. Mild facet arthropathy without effusion or juxtaarticular edema. L2-L3: No significant interval change. Mild posterior disk bulging. No spinal stenosis, foraminal joe rowing or nerve impingement. Mild facet arthropathy without effusion or juxtaarticular edema. L3-L4: No significant interval change. Mild posterior disk bulging. No spinal stenosis, foraminal joe rowing or nerve impingement. Mild facet arthropathy without effusion or juxtaarticular edema. L4-L5: Grade 1 anterolisthesis, mild broad-based disk bulging, facet hypertrophic arthropathy, modera te ligamentum flavum hypertrophy are again demonstrated resulting in quite severe central stenosis, s lightly worse than in the prior study, with severe crowding of nerve roots and effacement of CSF spac e, potentially may be associated with central nerve impingement. Moderate foraminal narrowing without impingement of exiting L4 nerve roots. L5-S1: Mild disk bulging/osteophyte complex extending to the foramina contacting the exiting L5 nerve roots. No central stenosis. Quite severe facet arthropathy with effusion no significant change. Spinal Canal: No enhancing masses within the spinal canal. No epidural abscess. Musculature: Normal. No edema, abnormal enhancement, or fatty atrophy. Other: The visualized pelvic cavity is unremarkable. IMPRESSION: 1. No significant interval change in the multiple predominantly osteoblastic bony metastases involvin g the vertebral bodies and posterior elements involving the visualized lumbar, lower thoracic and sac ral spines. H-type sacral fracture with transverse component across S2. However there is interval mor e marrow edema in the sacrum and in the presacral space conceivably can give rise to more pain. Pleas e see separate report of MRI sacrum for detail. 2. L4-L5 grade 1 anterolisthesis, mild broad-based disk bulging, facet hypertrophic arthropathy, mode rate ligamentum flavum hypertrophy are again demonstrated resulting in quite severe central stenosis, slightly worse than in the prior study, with severe crowding of nerve roots and effacement of CSF sp raafel, potentially may be associated with central nerve impingement. Moderate foraminal narrowing witho ut impingement of exiting L4 nerve roots. 3. L5-S1 mild disk bulging/osteophyte complex extending to the foramina contacting the exiting L5 ner ve roots. No central stenosis. 4. No spinal stenosis or nerve impingement in the other lumbar levels. Comment: The following findings are so common in adults without low back pain that while we report th eir presence, they must be interpreted with caution and in the context of the clinical situation. (Re erik Lott et al, Spine 2001) Prevalence of findings in patients without low back pain: Disk degeneration (any evidence): 92% Disk desiccation/T2 signal loss: 83% Disk height loss: 56% Disk bulge: 64% Disk protrusion: 32% Annular tear/high intensity zone: 38% [facility] Referring Provider Line: [phone] SITE ID: [id number]
--- NOTE | 2017-07-12 15:09 | MRI Report ---
EXAM: MRI SACRUM/SI JOINTS WITHOUT AND WITH CONTRAST EXAM DATE: 07/12/2017 02:00 PM. CLINICAL HISTORY: RT RADICULOPATHY, INCREASING BACK/SACRAL PAIN. SHOOTING PAIN TO RT BUTTOCK, LEG . HX OF BREAST CA - METS TO BONE. COMPARISON: MRI SACRUM/SI JOINTS WITHOUT CONTRAST 01/16/2017. TECHNIQUE: Multiplanar, multisequence T1-weighted and fluid-sensitive sequences of the sacrum/sacroil iac joints before and after administration of intravenous contrast. IV contrast: 6 cc Gadavist. Other : None. 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 However there is interval increase in the associat ed marrow edema and associated enhancement. No significant interval further decrease in vertebral hei ght of S2. Sacroiliac Joints: Degenerative changes are present. No effusion or sacroiliitis. Right Hip: Degenerative changes are present. No effusion. Left Hip: Degenerative changes are present. No effusion. Symphysis Pubis: Unremarkable. Musculature: Quite diffuse edema in the muscles around the pelvis including the iliopsoas, gluteus, p iriformis, obturator internus and externus, worse than in the prior study. Neurologic Structures: The sacral neural foramina are patent, and the sacral nerve roots have normal signal intensity. The visualized sciatic nerves are unremarkable. Pelvic Cavity: The visualized bowel, bladder, and reproductive organs are unremarkable. No lymphadeno leanne. No free fluid in the pelvis. Other: No bursitis. Presacral edema, also worse than the prior study. The subcutaneous tissues are un remarkable. No abscess or cellulitis. IMPRESSION: 1. Although there is no significant interval change in the number and size of the numerous osteoblast ic metastases in the lumbar and sacral spines, bilateral bony pelvis, bilateral femora, with superimp osed H-type sacral fracture with transverse component across S2, there is interval increase in the as sociated marrow edema and associated enhancement. No significant interval further decrease in vertebr al height of S2. 2. Quite diffuse edema in the muscles around the pelvis including the iliopsoas, gluteus, piriformis, obturator internus and externus, worse than in the prior study. 3. Presacral edema, also worse than the prior study. 4. Findings can conceivably contribute to increasing pain. [facility] Referring Provider Line: [phone] SITE ID: [id number]
== END 2017-07-12 11:59 | disposition home or self-care (01) ==
LOC: DI 11:58
PROVIDERS: ATTEND Nurse Practitioner Adult Health
DX: C79.51 Secondary malignant neoplasm of bone (principal); M84.550D Pathological fracture in neoplastic disease, pelvis, subsequent encounter for fracture with routine healing; M47.896 Other spondylosis, lumbar region; M43.16 Spondylolisthesis, lumbar region; M51.36 Other intervertebral disc degeneration, lumbar region; R60.9 Edema, unspecified
CPT/HCPCS: 72158; 72195; A9585

== ENCOUNTER 2017-07-16 15:32 | Outpatient (CLI) | payer OTHER ==
--- NOTE | 2017-07-16 19:54 | CONSULTATION NOTE ---
Palliative Care Follow Up - Referral Referring Provider: Dr. 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 She is on oral medications of Ibrance and letrozole since 09/2015. Last oncology visit did have her Ibrance decreased secondary to leukocytopenia and neurtopenia. Of note, she had to negative FBT in follow up for anemia, had been some question whether to have a colonoscopy. Her endoscopy was negative. It has stayed stable about Hct of about 28. Of concern has been her progressing and distressing back and sacral pain. She has been maintained on methadone 30 mg TID, oxycodone 40 mg for BTP now averaging about 5 doses/24 hours, and with addition of increased neuropathic pain symptoms of sharp shooting pains bilaterally, right greater than left, now with some "cheek" buttock numbness on awakening have been titrating the gabapentin 300 mg am, late afternoon, and 50o mg at night. Had "slip" and slow exacerbation of pain in last two weeks, had MRI done of lumbar/sacral & coccyx. She has been getting some relief with heat. These showed no significant interval change in the osteoblastic bony mets, but did show more marrow edema in the sacrum and presacral space. Has worsening at l4-l5 severe central stenosis than in prioir study, with severe crowding of nerve roots, with potential to be assoicate with central nerve impingement. The sacrum/SI joints showed diffuse edema in the muscles around the pelvis, worse than in prior study. Unclear exactly what is contributing to the worsening pain specifically. She also is complaining of "cystitis" pain, finished 3 days of Macrobid without improvement. Social History - Living Situation Living arrangement: At home Living Situation: With spouse/s.o. (spouse does work; needing more assistance; patient frustrated able to do less to support household) Medications/Allergies - Medications Home Medications: Ambulatory Orders Medication Instructions Recorded Confirmed Aspirin 81 mg PO DAILY 02/16/13 06/29/17 Polyethylene Glycol 3350 [Miralax] 0.66 cap PO DAILY PRN 03/26/15 06/29/17 Letrozole 2.5 mg PO DAILY 10/07/15 06/29/17 Palbociclib [Ibrance] 75 mg PO DAILY 10/07/15 06/29/17 Ondansetron HCl [Zofran] 4 mg PO TID 11/15/15 06/29/17 Omeprazole [PriLOSEC] 40 mg PO DAILY 12/17/15 06/29/17 Methadone 30 mg PO TID 06/30/16 06/29/17 Atorvastatin [Lipitor] 40 mg PO DAILY 03/30/17 06/29/17 Carvedilol 3.125 mg PO BID 03/30/17 06/29/17 Gabapentin 400 mg PO QDBREAKFAST 04/27/17 06/29/17 Nitroglycerin 0.4 mg SL TID 04/27/17 06/29/17 metFORMIN [Glucophage] 500 mg PO BIDWM 04/27/17 06/29/17 Biotin 1,500 mcg PO DAILY 05/06/17 06/29/17 Best Cit/Mag/D3/Zn/Extermination Inspector/Yahir/Bor 2 tab PO BID 05/06/17 06/29/17 [Citracal-Vit D + Magnesium Tab] Cholecalciferol [Vitamin D3] 5,000 unit PO DAILY 05/06/17 06/29/17 Citalopram [CeleXA] 10 mg PO DAILY 05/06/17 06/29/17 Fexofenadine HCl 180 mg PO DAILY 05/06/17 06/29/17 Guaifenesin [Mucinex] 600 mg PO BID 05/06/17 06/29/17 Oxycodone HCl 20 - 40 mg PO Q3HR PRN 05/06/17 06/29/17 Sennosides [Senna Lax] 2 tab PO BID PRN 05/06/17 06/29/17 Gabapentin 500 mg PO DAILY PM 06/29/17 06/29/17 Gabapentin 300 mg PO 1400 07/18/17 07/18/17 - Allergies Allergies/Adverse Reactions: Allergies Allergy/AdvReac Type Severity Reaction Status Date / Time oxaprozin [From Daypro] Allergy Intermediate Rash Verified 03/30/13 10:21 sulfamethoxazole Allergy Intermediate Rash Verified 02/16/13 00:35 [From Junra] erythromycin base AdvReac Intermediate Cramps Verified 02/16/13 01:01 [Erythromycin Base] minocycline [Minocycline] AdvReac Intermediate Cramps Verified 02/16/13 01:00 codeine [Codeine] AdvReac Mild Cramps Verified 02/16/13 01:00 meperidine AdvReac Unknown Anxiety Verified 07/25/13 10:12 Review of Systems - Constitutional Constitutional: reports: Fatigue, Weight stable - Eyes Eyes: reports: Corrective lenses - Ears, Nose & Throat Ears, Nose & Throat: reports: Nasal congestion. denies: Bleeding gums - Cardiovascular Cardiovascular: reports: Decr. exercise tolerance. denies: Chest pain - Respiratory Respiratory: reports: SOB with exertion - Gastrointestinal Gastrointestinal: reports: Nausea (improved off Ibrance). denies: Rectal bleeding - Genitourinary Genitourinary: reports: Dysuria, Frequency - Musculoskeletal Musculoskeletal: reports: Back pain, Muscle aches, Stiffness, Limited range of motion, Muscle weakness, Assistive devices, Transfer issues (mostly in wheelchair) - Integumentary Integumentary: reports: Hair changes (alopecia - thinning) - Neurological Neurological: reports: Numbness - Psychiatric Psychiatric: reports: Anxiety - Hematologic/Lymphatic Hematologic/Lymphatic: reports: Anemia, Recurrent infections (recent UTI) - All Other Systems All Other Systems: reports: Reviewed and negative Physical Exam - Vital Signs Pulse Rate: 61 Respiratory Rate: 18 Blood Pressure: 131/80 - Physical Exam General Appearance: positive: Mild distress, Anxious Eyes Bilateral: positive: Normal inspection ENT: positive: No signs of dehydration Neck: positive: No JVD, Trachea midline Cardiovascular: positive: Regular rate & rhythm Respiratory: positive: No respiratory distress Abdomen: positive: Soft Skin: positive: Pallor, Dryness Extremities: positive: No pedal edema, Other (patient in wheelchair; some pain with transferring) Neurologic/Psychiatric: positive: Oriented x3, Depressed mood/affect Palliative Care - POLST Patient has POLST: Yes POLST Status: DNR, Limited Interventions Pain: Pain worsening, Location (back and buttocks/sacral area), Severity (5/10 currently; left thigh worsened today) Drowsiness/Sedation: Mild (1-3) Nausea: Mild (1-3) Depression: Moderate (4-6) Anxiety: Mild (1-3) Dyspnea: None Anorexia: Severe (7-10) Sleep: Sleeps poorly (up at night to void; severe excrutiating pain upon awakening; difficulty getting settled down) Constipation: Yes, Opoid induced, Managed Feelings of wellbeing/Perceived Quality of Life: Poor, Worsening Performance Status: worsening functional status; needing to limit weight bearing concern for increasing pain; have adapted some more of environment for bathing; overseen by PC; still able to go to PT and do aqua therapy. - Palliative Care Discussion: Patient expressing feelings of distress regarding the findings, recommendations currently from myself and in consult with her physical therapist is to limit weight bearing and stress on pelvic region. Had discussed with Dr. Feliz, considering where to further explore other options to help with her escalating pain in region does not feel this is disease related. Had spoken to [facility], recommended follow up with physiatry first if interested in "injections" or more conservative approach, and neurosurgery would look at surgical intervention. Referral sent after conversation with office, first available is usually within two weeks. Had not heard by Wednesday (07/13 sent) resent. Discussed concerns about further risk of sequela of a fall or pathological fracture, would like to explore other input, patient in agreement. Patient expressing concerns about dealing with this manager intermediate, being wheelchair bound, and continued diminishing qualilty of life. Impression and Recommendations - Palliative Care Impression: This is a molly 67 year old woman with lobular breast cancer and josé mets with worsening function and increasing pain. MRI's reveal worsening central stenosis, and increased swelling in pelvic muscles/presacral area. Willing to explore other adjuvant options for managing acute on chronic pain. Recommendations/Counseling Done: 1. Cystitis. UA for C & S obtained, inst. if recurred or worsened to finish macrobid RX. 2.Acute on Chronic pain attributed to josé mets and worsening central stenosis. Will titrate gabapentin as have been somewhat effective with escalating dose, will start by adding another 100 mg to AM dosing. Rx written for methadone 10 mg tabs 3 TID #270 tab. Inst. to minimize weight bearing at this time, cont. with aqua therapy unless exacerbates pain, and follow up with manager hospitality. 3. Depressive symptoms. Counseling for normalizing current feelings of distress related to ongoing decline of quality of life. Time Spent: 60 minutes regarding counseling review of findings, opioid/pain managment; depression and follow up on UA.
== END 2017-07-16 15:33 | disposition home or self-care (01) ==
LOC: PC 15:32
PROVIDERS: ATTEND Nurse Practitioner Adult Health
DX: Z51.5 Encounter for palliative care (principal); N30.90 Cystitis, unspecified without hematuria; G89.3 Neoplasm related pain (acute) (chronic); C50.919 Malignant neoplasm of unspecified site of unspecified female breast; C79.51 Secondary malignant neoplasm of bone; Z79.891 Long term (current) use of opiate analgesic; Z79.82 Long term (current) use of aspirin; R53.83 Other fatigue; R06.09 Other forms of dyspnea; F41.9 Anxiety disorder, unspecified; R11.0 Nausea; K59.03 Drug induced constipation; T40.2X5D Adverse effect of other opioids, subsequent encounter; M48.061 Spinal stenosis, lumbar region without neurogenic claudication; Z66 Do not resuscitate
CPT/HCPCS: 99215

== ENCOUNTER 2017-08-27 14:09 | Outpatient (CLI) | payer OTHER ==
--- NOTE | 2017-08-27 19:13 | CONSULTATION NOTE ---
Palliative Care Follow Up - Referral Referring Provider: Dr. 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 She is on oral medications I have I brands and letrozole since 2014. She has had no side effects mostly leukopenia and neutropenia. Her most problematic symptom has been her ongoing back and sacral pain. She has been on methadone 30 mg 3 times daily with oxycodone 40 mg for breakthrough pain averaging about 5 doses in 24 hours. She had developed increasing neuropathic pain syndrome symptoms with sharp shooting pains and numbness around her anus and bilateral buttocks, she has had some response with the addition of gabapentin and the titration of this upward. Recently she was referred on to the physiatry is Dr. Rush Arvizu, twisting press operator, who concurs with continued focus on PT and aqua therapy, but did propose consideration of an L4- 5 injection to address the pain component regarding her severe central stenosis where there is severe crowding of nerve roots and effacement of the CSF space. Azucena has significant concerns regarding her poor tolerance of cortisone injection in the past to her knee, as well as intolerance of oral prednisone. She is also concerned regarding the reaction to the steroids as a stressor to her heart. She has been stable since her stent placement and has had no further recurrent cardiac symptoms. Social History - Living Situation Living arrangement: At home Living Situation: With spouse/s.o. Support System: Spouse does work during the day, patient does manage independently with an effort to try and do less standing at home. She has continued with PT therapy which is important to her. She has been able to shower with assist, and proper equipment. She is mostly wheelchair bound at this point. Medications/Allergies - Medications Home Medications: Ambulatory Orders Medication Instructions Recorded Confirmed Aspirin 81 mg PO DAILY 02/16/13 08/17/17 Polyethylene Glycol 3350 [Miralax] 0.66 cap PO DAILY PRN 03/26/15 08/27/17 Letrozole 2.5 mg PO DAILY 10/07/15 08/27/17 Palbociclib [Ibrance] 75 mg PO DAILY 10/07/15 08/27/17 Ondansetron HCl [Zofran] 4 mg PO Q6HR PRN 11/15/15 08/27/17 Omeprazole [PriLOSEC] 40 mg PO DAILY 12/17/15 08/27/17 Methadone 30 mg PO TID 06/30/16 08/27/17 Atorvastatin [Lipitor] 40 mg PO DAILY 03/30/17 08/17/17 Carvedilol 3.125 mg PO BID 03/30/17 08/17/17 Gabapentin 400 mg PO QDBREAKFAST 04/27/17 08/27/17 Nitroglycerin 0.4 mg SL TID 04/27/17 08/27/17 metFORMIN [Glucophage] 500 mg PO BIDWM 04/27/17 08/27/17 Biotin 1,500 mcg PO DAILY 05/06/17 08/17/17 Best Cit/Mag/D3/Zn/Agricultural Technician/Yahir/Bor 2 tab PO BID 05/06/17 08/17/17 [Citracal-Vit D + Magnesium Tab] Cholecalciferol [Vitamin D3] 5,000 unit PO DAILY 05/06/17 08/17/17 Citalopram [CeleXA] 20 mg PO DAILY 05/06/17 08/17/17 Fexofenadine HCl 180 mg PO DAILY 05/06/17 08/17/17 Guaifenesin [Mucinex] 600 mg PO BID PRN 05/06/17 08/27/17 Oxycodone HCl 20 - 40 mg PO Q3HR PRN 05/06/17 08/27/17 Sennosides [Senna Lax] 2 tab PO BID PRN 05/06/17 08/27/17 Gabapentin 500 mg PO DAILY PM 06/29/17 08/27/17 Gabapentin 400 mg PO 1400 07/18/17 08/27/17 - Allergies Allergies/Adverse Reactions: Allergies Allergy/AdvReac Type Severity Reaction Status Date / Time oxaprozin [From Daypro] Allergy Intermediate Rash Verified 03/30/13 10:21 sulfamethoxazole Allergy Intermediate Rash Verified 02/16/13 00:35 [From Septra] erythromycin base AdvReac Intermediate Cramps Verified 02/16/13 01:01 [Erythromycin Base] minocycline [Minocycline] AdvReac Intermediate Cramps Verified 02/16/13 01:00 codeine [Codeine] AdvReac Mild Cramps Verified 02/16/13 01:00 meperidine AdvReac Unknown Anxiety Verified 07/25/13 10:12 Review of Systems - Constitutional Constitutional: reports: Fatigue, Weight stable - Eyes Eyes: reports: Corrective lenses - Ears, Nose & Throat Ears, Nose & Throat: reports: Hearing loss, Hearing aids - Cardiovascular Cardiovascular: denies: Chest pain - Respiratory Respiratory: reports: SOB with exertion. denies: Cough - Gastrointestinal Gastrointestinal: reports: Constipation, Good appetite - Genitourinary Genitourinary: reports: Dysuria, Frequency - Musculoskeletal Musculoskeletal: reports: Back pain, Stiffness, Limited range of motion, Muscle weakness, Transfer issues (pivot transfers but can include steps, has been trying to mitigate standing as exacerbates pain) - Integumentary Integumentary: reports: Other (reports small labial cyst; history of previously; ) - Neurological Neurological: reports: Focal weakness, Memory problems (more difficulty with word finding last few weeks) - Psychiatric Psychiatric: reports: Depression (recently increase of antidepresant) - Endocrine Endocrine: reports: Other (metabolic syndrome) - Hematologic/Lymphatic Hematologic/Lymphatic: reports: Anemia, Recurrent infections (new UTI, now on amoxicillen) - All Other Systems All Other Systems: reports: Reviewed and negative Physical Exam - Vital Signs Pulse Rate: 62 Respiratory Rate: 18 Blood Pressure: 110/67 - Physical Exam General Appearance: positive: Mild distress Eyes Bilateral: positive: Normal inspection ENT: positive: No signs of dehydration Neck: positive: Trachea midline Cardiovascular: positive: Regular rate & rhythm Respiratory: positive: Breath sounds nml Abdomen: positive: Soft, Nml bowel sounds Skin: positive: Pallor Extremities: positive: No pedal edema, Other (difficulty with sit to stand and transfer with assist to wheelchair; noted pain behaviors) Neurologic/Psychiatric: positive: Oriented x3, Mood/affect nml Palliative Care - POLST Patient has POLST: Yes POLST Status: DNR, Limited Interventions Pain: Pain worsening, Location (lower lumbar area radiating into both buttocks; left greater than right and down into left leg and foot. Numbness noted in anus and buttocks area), Severity, Pattern (most painful on awakening; has noticed some improvement with each gabapentin increase but still 5/10 today.) Tiredness/Fatigue: Mild (1-3) Drowsiness/Sedation: Moderate (4-6), Comment (Has experienced more difficulty with increasing gabapentin and of drowsiness and sleepiness, also some slowing of cognition as well as word finding. This is confirmed by her spouse.) Nausea: None Depression: Mild (1-3) Anxiety: Mild (1-3) Dyspnea: None Anorexia: Moderate (4-6) Sleep: Variable sleep pattern Constipation: Yes, Opoid induced, Intermittent constipation (Full rectum does add to her pain discomfort most likely related to pressure on those sacral nerves.) Feelings of wellbeing/Perceived Quality of Life: Fair, Acceptable, No change Performance Status: Patient still participating in physical therapy, she is needing more assist with some of her ADLs. She does manage independently to transfer to car, does use wheelchair for longer distances. Most of her functional status is actually impacted by her pain not so much weakness. - Other Findings/Comments Additional Discussion: Discussion was mostly focused today on weighing benefits and burdens of proceeding with injections, her most problematic and impact for symptom is her pain. Agreed I would follow-up relating to her concerns with both Dr. Greenfield and Dr. Borjas. Is looking forward to the holidays, spending time with family, appears she is trying to find distraction consider adding meaning to her current life with noted limitations. Results - Lab Results Lab results reviewed: Yes Impression and Recommendations - Palliative Care Impression: This is a molly 67-year-old woman with lobular breast cancer and bony metastases with worsening function attributed to her increased pain. Am titrating her regimen quite slowly, she has seen the physiatry is, she is currently weighing benefits and burdens in proceeding with this. Her goals are to continue to focus on quality of life. Recommendations/Counseling Done: 1. Cystitis. UA for C&S was obtained, patient did have recurrent symptoms despite finishing Macrobid. She has been started on amoxicillin and has a couple more days for this. It was E. coli again. We did discuss risk factors including some mild stool incontinence related to her numbness in her anus area. And difficulty finding balance in her bowel program. Will explore using D-mannose as a prophylactic, evidence has both positive and negative connotations to it. Encouraged to push fluids and as best she can focus on perianal hygiene. Regarding her cyst, on her labia, was instructed to see response to antibiotics, if it is causing more distress will need to have it seen either by her PCP or TRIMMER LOADER. 2. Pain of neoplastic origin. Will go ahead and increase her 1400 dose to 400 mg. This is of the gabapentin. Do have some leeway to increase further, did voice my concern so weighing benefits and burdens regarding appearance that she is somewhat sedated from previous baseline. Agreed with follow-up with Dr. LESLEE STONE and Dr. BORJAS regarding pushing forward to consider spinal injections. Patient received her methadone prescription earlier in the week. She is currently on 10 mg 3 tabs 3 times daily as well as her oxycodone 20 mg 1-2 tabs every 3 hours for breakthrough pain. 3. Depressive symptoms. She has recently had her antidepressant increased. Also discussed with change and daylight savings time considered to initiate her light therapy again. She has found this helpful in the past. Time Spent: Time spent 60 minutes with greater than 50% of this done in reviewing recommendations from physiatry wrist counseling regarding pain management, and anticipatory guidance.
== END 2017-08-27 14:10 | disposition home or self-care (01) ==
LOC: PC 14:09
PROVIDERS: ATTEND Nurse Practitioner Adult Health
DX: Z51.5 Encounter for palliative care (principal); G89.3 Neoplasm related pain (acute) (chronic); C50.919 Malignant neoplasm of unspecified site of unspecified female breast; C79.51 Secondary malignant neoplasm of bone; Z95.5 Presence of coronary angioplasty implant and graft; H91.90 Unspecified hearing loss, unspecified ear; R06.02 Shortness of breath; K59.00 Constipation, unspecified; T40.2X5D Adverse effect of other opioids, subsequent encounter; N30.90 Cystitis, unspecified without hematuria; B96.20 Unspecified Escherichia coli [E. coli] as the cause of diseases classified elsewhere; N90.7 Vulvar cyst; Z66 Do not resuscitate; Z79.82 Long term (current) use of aspirin; Z79.891 Long term (current) use of opiate analgesic; Z79.899 Other long term (current) drug therapy
CPT/HCPCS: 99215

== ENCOUNTER 2017-09-21 08:00 | Outpatient (CLI) | payer OTHER | END 2017-09-21 08:01 | disposition home or self-care (01) | LOC: LAB.R 08:00 | PROVIDERS: ATTEND Nurse Practitioner Adult Health | DX: R30.9 Painful micturition, unspecified (principal) | CPT/HCPCS: 81001; 81003; 87086 ==

== ENCOUNTER 2017-10-02 09:41 | Outpatient (CLI) | payer OTHER ==
[2017-10-02 10:21] LABS: MEAN CORPUSCULAR HEMOGLOBIN 32.9 pg (27.0-31.0); MEAN CORPUSCULAR HGB CONC 32.9 g/dL (32.0-36.0); MEAN CORPUSCULAR VOLUME 99.9 fL (81.0-99.0); MEAN PLATELET VOLUME 6.2 fL (7.9-10.8); NEUTROPHILS # (AUTO) 1.1 10^3/uL (1.5-6.6); NEUTROPHILS % (AUTO) 59.9 %; RED BLOOD COUNT 3.34 10^6/uL (4.20-5.40); RED CELL DISTRIBUTION WIDTH 17.3 % (12.0-15.0)
[2017-10-02 10:29] LABS: ALBUMIN 3.9 g/dL (3.2-5.5); ALBUMIN/GLOBULIN RATIO 1.2 (1.0-2.2); BILIRUBIN,TOTAL 0.4 mg/dL (0.2-1.0); CALCIUM 9.5 mg/dL (8.5-10.3); CREATININE 1.1 mg/dL (0.4-1.0); TOTAL PROTEIN 7.1 g/dL (6.7-8.2)
[2017-10-02 11:10] LABS: WHITE BLOOD COUNT 1.9 x10^3/uL (4.8-10.8)
[2017-10-02] MEDS ORDERED: IOPAMIDOL-300 100 ML VIAL IVP ONE (11:34)
[2017-10-02] MEDS ORDERED: IOPAMIDOL-300 50 ML VIAL PO ONE (11:34)
--- NOTE | 2017-10-02 23:07 | CT Report ---
EXAM: CT ABDOMEN AND PELVIS EXAM DATE: 10/02/2017 11:34 AM. CLINICAL HISTORY: Metastatic breast cancer. COMPARISONS: 04/28/2017. TECHNIQUE: Routine helical CT imaging was performed through the abdomen and pelvis. IV contrast: 100 cc of Isovue-300. Enteric contrast: No. Reconstructions: Coronal and sagittal. In accordance with CT protocol optimization, one or more of the following dose reduction techniques w ere utilized for this exam: automated exposure control, adjustment of mA and/or KV based on patient s ize, or use of iterative reconstructive technique. FINDINGS: Liver: Stable subcentimeter low-density, lower right lobe, otherwise unremarkable. Gallbladder/Bile Ducts: Cholecystectomy. No dilated ducts. Spleen: Normal. Pancreas: Normal. Adrenal Glands: Normal. Kidneys: Stable mild left renal atrophy with prominent extrarenal pelvis, otherwise unremarkable. Peritoneal Cavity/Bowel: Prior sigmoid resection again noted. No free fluid, free air or adenopathy. No masses or acute inflammatory process. Nonvisualized appendix. Pelvic Organs: The reproductive organs and bladder are unremarkable. Vasculature: No aneurysms or other significant abnormality. Bones: Numerous sclerotic bone metastases again noted. Bilateral sacral and right pubic fractures aga in noted. Other: Small fat-containing ventral hernias again noted. IMPRESSION: 1. Numerous sclerotic bone metastases again noted, otherwise no evidence of metastasis in the abdomen and pelvis. 2. Postoperative changes of the sigmoid colon and cholecystectomy again noted. 3. Stable fat-containing ventral hernias. 4. Stable bilateral sacral and right pubic fractures. [facility] Referring Provider Line: [phone] SITE ID: [id number]
--- NOTE | 2017-10-02 23:34 | CT Report ---
EXAM: CT CHEST EXAM DATE: 10/02/2017 11:35 AM. CLINICAL HISTORY: Metastatic breast cancer COMPARISONS: CTA chest 12/27/2015. CT chest 03/02/2007. TECHNIQUE: Routine helical CT imaging was performed through the chest. IV contrast: 100 mL Isovue-300 . Reconstructions: Coronal and sagittal. In accordance with CT protocol optimization, one or more of the following dose reduction techniques w ere utilized for this exam: automated exposure control, adjustment of mA and/or KV based on patient s ize, or use of iterative reconstructive technique. FINDINGS: Lungs/Pleura: Subtle ill-defined area of groundglass opacity in the superior segment of the right low er lobe (series 3 image 34). No pulmonary nodules or masses. No focal consolidation or pleural effusi on. Heart and Great Vessels: Heart size is normal. No pericardial effusion. Trace atherosclerotic calcifi cations within the coronary arteries and aorta. The aorta and visualized central pulmonary artery is unremarkable. Thoracic Lymph Nodes: No adenopathy. Bones: Similar appearance of diffuse sclerotic osseous metastases involving the bilateral proximal hu lupe, bilateral scapulae and clavicles, ribs, and visualized spine. Visualized Abdomen: Post cholecystectomy. Focal left renal cortical scarring. Other: None. IMPRESSION: 1. Subtle ill-defined area of ground glass opacity in the superior segment of the right lower lobe, p ossibly inflammatory/infectious etiology. Appearance not typical for metastases. 2. No solid pulmonary nodules or masses. 3. No adenopathy. 4. Similar appearance of diffuse blastic osseous metastatic disease. [facility] Referring Provider Line: [phone] SITE ID: [id number]
== END 2017-10-02 09:42 | disposition home or self-care (01) ==
LOC: DI 09:41
PROVIDERS: ATTEND Internal Medicine Hematology & Oncology
DX: C50.919 Malignant neoplasm of unspecified site of unspecified female breast (principal); C79.51 Secondary malignant neoplasm of bone; Z90.49 Acquired absence of other specified parts of digestive tract; K43.9 Ventral hernia without obstruction or gangrene; R91.8 Other nonspecific abnormal finding of lung field
CPT/HCPCS: 36415; 71260; 74177; 80053; 83615; 85027; 86300; Q9967

== ENCOUNTER 2017-10-07 10:15 | Outpatient (CLI) | payer OTHER ==
--- NOTE | 2017-10-07 14:33 | Nuclear Medicine Report ---
EXAM: BONE SCAN EXAM DATE: 10/07/2017 02:15 PM. CLINICAL HISTORY: Metastatic breast cancer. COMPARISON: Bone scan 05/28/2015. Chest, abdomen, and pelvis CT 10/02/2017. TECHNIQUE: Following the intravenous administration of 31.8 mCi of technetium 99m MDP and an appropri ate delay, a whole-body scan was performed in anterior and posterior projections. FINDINGS: Exam Quality: Normal overall osseous radiotracer uptake. Physiological tracer uptake in bilateral col lecting systems. Skull: There are several small foci of increased uptake in the calvarium. Thorax: There are foci of increased uptake in the sternum and in left anterior ribs. Pelvis: There are several lesions in the pelvic bones, most prominently in the sacrum. Spine: There are multiple lesions throughout the spine. Extremities: Patchy increased uptake in the left femoral diaphysis. There are bilateral knee prosthes es. IMPRESSION: Multifocal skeletal metastatic disease. Increased burden of disease compared to the prior bone scan. [facility] Referring Provider Line: [phone] SITE ID: [id number]
== END 2017-10-07 10:16 | disposition home or self-care (01) ==
LOC: DI 10:15
PROVIDERS: ATTEND Internal Medicine Hematology & Oncology
DX: C50.919 Malignant neoplasm of unspecified site of unspecified female breast (principal); C79.51 Secondary malignant neoplasm of bone
CPT/HCPCS: 78306; A9503

== ENCOUNTER 2017-10-07 15:50 | Outpatient (CLI) | payer OTHER | END 2017-10-07 15:51 | disposition home or self-care (01) | LOC: PC 15:50 | PROVIDERS: ATTEND Nurse Practitioner Adult Health | DX: Z53.9 Procedure and treatment not carried out, unspecified reason (principal) ==

== ENCOUNTER 2017-10-07 16:15 | Outpatient (CLI) | payer OTHER ==
--- NOTE | 2017-10-07 21:08 | CONSULTATION NOTE ---
Palliative Care Follow Up - Referral Referring Provider: Dr. Christelle Feliz Time of Visit: [phone] Referral setting: Home (Patient seen at home setting secondary exacerbation of her pain after the bone scan. This is also to help facilitate exam and family conference.) Referral Reason: Pain of neoplastic Origin/Metastatic Breast CA - Information Sources Records reviewed: RN notes reviewed, Previous records reviewed History/Review of Systems obtained from: Patient, Family Exam limitations: No limitations - History of Present Illness Update Brief HPI Update: The molly 67-year-old woman with lobular breast cancer with metastatic disease to the bones. Her CA 153 antigen has been slowly creeping up again on 10/02 was 21.3. In the context of her oncologist it is thought to have progressive disease. She did undergo CT scans of her chest abdomen and a bone scan. Her CT of the chest did show a subtle ill-defined area of ground glass opacity in the superior segment of the right lower lobe, it was noted that this is not a typical appearance for metastatic disease. And her CT of her pelvis showed in her liver is stable subcentimeter low density right lower lobe otherwise unremarkable with no evidence of metastasis in the abdomen and pelvis. Her bony metastases of continue to show increased burden compared to prior bone scan , this is been evident on other MRIs of her spine and pelvis. Unfortunately laying flat for the bone scan has exacerbated her pain fairly dramatically. She had received a sterioid injection last Wednesday with some improvement, it had improved with the pain in the hamstring, calf, and buttock which is often interpreted as a cramping pain. She initially got some improvement with this, and still remains quite hopeful. She understands that the efficacy of this will be most evident or peaked out at 2 weeks. She does report her pain is worse in the a.m., she has had put her physical therapy on hold. Her pain is more in her right versus her left hip, after her exam today she does have an exacerbation in her right groin. She had been able to decrease her total oxycodone intake from 12-14 tabs in 24 hours to 8 and 24 hours, remains hopeful that after the trauma of today receives she will receive continued improvement Social History - Living Situation Living arrangement: At home Living Situation: With spouse/s.o. Support System: Spouse works during the week, she has been able to remain independent at home with wheelchair mobility. She does have [facility] for safety. Medications/Allergies - Medications Home Medications: Ambulatory Orders Medication Instructions Recorded Confirmed Aspirin 81 mg PO DAILY 02/16/13 09/21/17 Polyethylene Glycol 3350 [Miralax] 0.66 cap PO DAILY PRN 03/26/15 09/21/17 Letrozole 2.5 mg PO DAILY 10/07/15 09/21/17 Palbociclib [Ibrance] 75 mg PO DAILY 10/07/15 09/21/17 Ondansetron HCl [Zofran] 4 mg PO Q6HR PRN 11/15/15 09/21/17 Omeprazole [PriLOSEC] 40 mg PO DAILY 12/17/15 09/21/17 Methadone 30 mg PO TID 06/30/16 09/21/17 Atorvastatin [Lipitor] 40 mg PO DAILY 03/30/17 09/21/17 Carvedilol 3.125 mg PO BID 03/30/17 09/21/17 Nitroglycerin 0.4 mg SL TID 04/27/17 09/21/17 metFORMIN [Glucophage] 500 mg PO BIDWM 04/27/17 09/21/17 Biotin 1,500 mcg PO DAILY 05/06/17 09/21/17 Best Cit/Mag/D3/Zn/Director [employer]/Yahir/Bor 2 tab PO BID 05/06/17 09/21/17 [Citracal-Vit D + Magnesium Tab] Cholecalciferol [Vitamin D3] 5,000 unit PO DAILY 05/06/17 09/21/17 Citalopram [CeleXA] 20 mg PO DAILY 05/06/17 09/21/17 Fexofenadine HCl 180 mg PO DAILY 05/06/17 09/21/17 Guaifenesin [Mucinex] 600 mg PO BID PRN 05/06/17 09/21/17 Oxycodone HCl 20 - 40 mg PO Q3HR PRN 05/06/17 09/21/17 Sennosides [Senna Lax] 2 tab PO BID PRN 05/06/17 09/21/17 Gabapentin 500 mg PO TID 06/29/17 09/21/17 - Allergies Allergies/Adverse Reactions: Allergies Allergy/AdvReac Type Severity Reaction Status Date / Time oxaprozin [From Daypro] Allergy Intermediate Rash Verified 03/30/13 10:21 sulfamethoxazole Allergy Intermediate Rash Verified 02/16/13 00:35 [From ] erythromycin base AdvReac Intermediate Cramps Verified 02/16/13 01:01 [Erythromycin Base] minocycline [Minocycline] AdvReac Intermediate Cramps Verified 02/16/13 01:00 codeine [Codeine] AdvReac Mild Cramps Verified 02/16/13 01:00 meperidine AdvReac Unknown Anxiety Verified 07/25/13 10:12 Review of Systems - Constitutional Constitutional: reports: Fatigue - Eyes Eyes: reports: Vision loss, Corrective lenses - Ears, Nose & Throat Ears, Nose & Throat: reports: Hearing loss, Hearing aids - Cardiovascular Cardiovascular: reports: Decr. exercise tolerance - Gastrointestinal Gastrointestinal: reports: Constipation - Genitourinary Genitourinary: reports: Dysuria, Other (vaginal candidiasis has just started the monastat) - Musculoskeletal Musculoskeletal: reports: Back pain, Muscle aches, Stiffness, Limited range of motion, Muscle weakness, Transfer issues (wheelchair dependent; able to pivot transfer or take a few steps) - Integumentary Integumentary: reports: Dryness, Hair changes (decreased alopecia with decrease dose of Ibrance) - Neurological Neurological: reports: General weakness, Numbness, Abnormal gait - Psychiatric Psychiatric: reports: Anxiety - Hematologic/Lymphatic Hematologic/Lymphatic: reports: Anemia, Other (is neutropenic) - All Other Systems All Other Systems: reports: Reviewed and negative Physical Exam - Vital Signs Temperature: 97.6 C Pulse Rate: 73 Respiratory Rate: 18 O2 Saturation: 94 (ra @ rest) Blood Pressure: 116/72 - Physical Exam General Appearance: positive: Moderate distress (secondary to bone scan this afternoon with pain exacerbation) Eyes Bilateral: positive: Conjunctivae nml, No scleral icterus ENT: positive: ENT inspection nml, No signs of dehydration Neck: positive: No JVD, Trachea midline Cardiovascular: positive: Regular rate & rhythm Respiratory: positive: Breath sounds nml, Diminished in bases Abdomen: positive: Soft, Nml bowel sounds Skin: positive: Pallor Extremities: positive: Other (support stockings on) Neurologic/Psychiatric: positive: Oriented x3, Weakness, Other (very tired with long day) Palliative Care - POLST Patient has POLST: Yes POLST Status: DNR, Limited Interventions Pain: Comment (Pain had initially improved with steroid injection in lower back between L5 and L6, particular around the neuropathic component of this. She has had an exacerbation with her recent bone scan. She has noted some increased pain above this in her low back, this was her baseline pain prior to the exacerbation of her neuropathic pain. I suspect the exacerbation was caused by nerve impingement of the patient lying flat. She usually in relief of her pain is tilted with her pelvis, either in sitting, knees catch, or positioning in bed.) Tiredness/Fatigue: Moderate (4-6) Drowsiness/Sedation: Mild (1-3) Nausea: Mild (1-3) (less on Ibrance at lower dose) Depression: Mild (1-3) (using light box) Anxiety: Mild (1-3) (Some anxiety about pending plans for further treatment options, as well as concerned about baseline level of pain and being able to sustain relief.) Dyspnea: Mild (1-3) Constipation: Yes, Opoid induced, Managed Feelings of wellbeing/Perceived Quality of Life: Fair, Acceptable, Improved Performance Status: Patient mostly wheelchair bound, has not been able to do physical therapy which is aqua therapy for couple weeks now. She is able to pivot and stand and transfer, does tend to walk a few steps at times. She does spend most of her time in the recliner. She is unable to independently shower if set up. - Palliative Care Discussion: Patient continues to experience ongoing losses far as independence, and functional status. She does have a fairly pragmatic approach, though does get weary, and is concerned about the future. Discussion included weighing benefits and burdens, questions to ask for the oncologist moving forward, she had been introduced to possibly "real chemo". Her goals are to focus on quality of life, her escalating pain has impacted this dramatically. Results - Lab Results Lab results reviewed: Yes Impression and Recommendations - Palliative Care Impression: This is a molly 67-year-old woman who has metastatic breast cancer, with increasing bone metastases. She continues to struggle with escalating pain, neuropathic in nature, with recent injection. She does have evidence of increasing tumor burden, and is awaiting final plans and looking forward with the oncologist. Her goals remain qualitative in nature, in weighing benefits and burdens of moving forward Recommendations/Counseling Done: 1.Pain of neoplastic origin secondary to bony metastases and nerve compression. She initially did have a positive response to the cortisone injection, today' s exacerbated by having to lay flat for her bone scan. Remains quite anxious that her pain is going to escalate out of control, did discuss the next step in titrating up her gabapentin. Weighing benefits and burdens of going slowly, as she is home mostly by herself, she does experience some mild sedation on increased dosing. Will increase 100 mg every 4 days, she will hold off to see if the exacerbation settles down over the next 2-3 days, if not she will start titration. Counseling regarding breakthrough dosing as well, wondering about increasing her oxycodone currently 20-40 mg every 3-4 hours, did discuss more frequent small dosing versus higher dosing given fall risk and concern for confusion. She is in agreement with this. She will continue to log and let me know if we need to titrate gabapentin up more aggressively. 2. Vaginal candidiasis. Patient instructed to use Monistat 7, has recently been on amoxicillin for symptoms of cystitis. These symptoms have abated, unclear if these are residual from radiation or if she is having recurrent infections. 3. Advanced care planning. Patient processing concerns about progressive disease, addressed questions regarding framing questions oncologist, as well as looking in the future to "real chemo". 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 Time Spent: 60 minutes with greater than 50% of this done in counseling regarding pain management, advanced care planning, forward planning, and anticipatory guidance.
== END 2017-10-07 16:16 | disposition home or self-care (01) ==
LOC: PC 16:15
PROVIDERS: ATTEND Nurse Practitioner Adult Health
DX: Z51.5 Encounter for palliative care (principal); G89.3 Neoplasm related pain (acute) (chronic); C50.919 Malignant neoplasm of unspecified site of unspecified female breast; C79.51 Secondary malignant neoplasm of bone; B37.3 Candidiasis of vulva and vagina; Z99.3 Dependence on wheelchair; Z79.82 Long term (current) use of aspirin; Z79.891 Long term (current) use of opiate analgesic; R53.83 Other fatigue; K59.00 Constipation, unspecified; M62.81 Muscle weakness (generalized); F41.9 Anxiety disorder, unspecified; D64.9 Anemia, unspecified; F32.9 Major depressive disorder, single episode, unspecified; R06.00 Dyspnea, unspecified; K59.03 Drug induced constipation; T40.2X5D Adverse effect of other opioids, subsequent encounter; Z66 Do not resuscitate
CPT/HCPCS: 99350

== ENCOUNTER 2017-11-04 18:52 | Outpatient (CLI) | payer OTHER ==
--- NOTE | 2017-11-04 19:40 | CONSULTATION NOTE ---
Palliative Care Follow Up - Referral Referring Provider: Dr. Christelle Feliz Time of Visit: [phone] Referral setting: Home (Home visit made secondary taxing considerable effort for the patient leave the home, patient's pain is improving though, visit to facilitate family conference as well as augment treatment plan) Referral Reason: Pain of neoplastic origin/Met. 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 At this point in time her oncologist is going to continue her on oral Ibrance at a reduced dose of 75 mg related to pancytopenia , and letrozole and reevaluate again in 3-6 months with scans/marker. In the context of most likely progressive disease though slow growing, has caused some angst in the context of "next steps" and what the future might bring. Patient did have fairly exacerbated episode of her lower back pain, neuropathic in nature, with a sharp shooting pains in her right groin and leg. We have been titrating her gabapentin over the last month with actually good results, she is currently on methadone 30 mg 3 times daily with gabapentin 600 mg 3 times daily. She has had some sedation with this, but feels currently her pain is adequately controlled, this is evidenced by her decreased use of her oxycodone 20 mg for breakthrough pain averaging about 8-10 tabs versus up to 14 in her acute phase. She is still able to participate in physical therapy, this is an aqua therapy program twice a week, is able to manage somewhat independently during the day, and is remaining mostly wheelchair bound. She has had no falls, no recent infections, or symptoms of cystitis have since abated Social History - Living Situation Living arrangement: At home Living Situation: With spouse/s.o. Support System: She has an extensive network of friends and family, she is attending a support group on a regular basis Medications/Allergies - Medications Home Medications: Ambulatory Orders Medication Instructions Recorded Confirmed Aspirin 81 mg PO DAILY 02/16/13 11/04/17 Polyethylene Glycol 3350 [Miralax] 0.66 cap PO DAILY PRN 03/26/15 11/04/17 Letrozole 2.5 mg PO DAILY 10/07/15 11/04/17 Ondansetron HCl [Zofran] 4 mg PO Q6HR PRN 11/15/15 11/04/17 Omeprazole [PriLOSEC] 40 mg PO DAILY 12/17/15 11/04/17 Methadone 30 mg PO TID 06/30/16 11/04/17 Atorvastatin [Lipitor] 40 mg PO DAILY 03/30/17 11/04/17 Carvedilol 3.125 mg PO BID 03/30/17 11/04/17 Nitroglycerin 0.4 mg SL TID 04/27/17 11/04/17 metFORMIN [Glucophage] 500 mg PO BIDWM 04/27/17 11/04/17 Biotin 500 mcg PO TID 05/06/17 11/04/17 Best Cit/Mag/D3/Zn/C[employer] Knife/Yahir/Bor 2 tab PO BID 05/06/17 11/04/17 [Citracal-Vit D + Magnesium Tab] Cholecalciferol [Vitamin D3] 5,000 unit PO DAILY 05/06/17 11/04/17 Fexofenadine HCl 180 mg PO DAILY 05/06/17 11/04/17 Guaifenesin [Mucinex] 600 mg PO BID PRN 05/06/17 11/04/17 Oxycodone HCl 20 - 40 mg PO Q3HR PRN 05/06/17 11/04/17 Sennosides [Senna Lax] 2 tab PO BID PRN 05/06/17 11/04/17 Gabapentin 600 mg PO TID 06/29/17 11/04/17 Escitalopram [Lexapro] 20 mg PO DAILY 10/19/17 11/04/17 Palbociclib [Ibrance] 75 mg PO .DAILY 3 WKS/1 OFF 11/04/17 11/04/17 - Allergies Allergies/Adverse Reactions: Allergies Allergy/AdvReac Type Severity Reaction Status Date / Time oxaprozin [From Daypro] Allergy Intermediate Rash Verified 03/30/13 10:21 sulfamethoxazole Allergy Intermediate Rash Verified 02/16/13 00:35 [From ] erythromycin base AdvReac Intermediate Cramps Verified 02/16/13 01:01 [Erythromycin Base] minocycline [Minocycline] AdvReac Intermediate Cramps Verified 02/16/13 01:00 codeine [Codeine] AdvReac Mild Cramps Verified 02/16/13 01:00 meperidine AdvReac Unknown Anxiety Verified 07/25/13 10:12 Review of Systems - Constitutional Constitutional: reports: Fatigue, Weight stable - Eyes Eyes: reports: Vision loss, Corrective lenses - Ears, Nose & Throat Ears, Nose & Throat: reports: Hearing loss, Hearing aids - Cardiovascular Cardiovascular: reports: Decr. exercise tolerance - Respiratory Respiratory: denies: Cough - Gastrointestinal Gastrointestinal: reports: Nausea (intermittent taking ondansetron about 2x week ), Good appetite - Genitourinary Genitourinary: reports: Frequency. denies: Dysuria - Musculoskeletal Musculoskeletal: reports: Back pain, Stiffness, Limited range of motion, Muscle weakness, Transfer issues (uses wheelchair for decreased weight bearing; PT twice a week) - Neurological Neurological: reports: General weakness, Memory problems (some increase in sedation/memory slowing with increase gabapentin) - Psychiatric Psychiatric: denies: Depression, Anxiety - Hematologic/Lymphatic Hematologic/Lymphatic: reports: Anemia - All Other Systems All Other Systems: reports: Reviewed and negative Physical Exam - Vital Signs Temperature: 97.2 C Pulse Rate: 83 Respiratory Rate: 18 O2 Saturation: 95 (ra @ rest) Blood Pressure: 152/85 - Physical Exam General Appearance: positive: No acute distress Eyes Bilateral: positive: Normal inspection ENT: positive: No signs of dehydration Neck: positive: Trachea midline Cardiovascular: positive: Regular rate & rhythm Respiratory: positive: Breath sounds nml Abdomen: positive: Soft, Tenderness (bilateral tenderness left greater than right groin area) Skin: positive: Pallor Extremities: positive: No pedal edema Neurologic/Psychiatric: positive: Oriented x3, Mood/affect nml Palliative Care - POLST Patient has POLST: Yes POLST Status: DNR, Selective Treatment Pain: Pain improved, Location (Pain mostly related to right groin, back, neuropathic component sharp shooting down the leg. Has generalized "traveling pain" 3 different areas including ribs, back, spine, and legs. More specific and upper cervical spine area today.) Tiredness/Fatigue: Moderate (4-6) Drowsiness/Sedation: Moderate (4-6) Nausea: Mild (1-3) Depression: None Anxiety: None Dyspnea: None Anorexia: None Sleep: Variable sleep pattern Constipation: Yes, Opoid induced, Managed Feelings of wellbeing/Perceived Quality of Life: Good, Acceptable, Improved Performance Status: Patient independent in her transfers to and from wheelchair, does need some assistance with IADLs, still able to drive back and forth to physical therapy. Is very important for her to be as independent as possible for as long as possible - Palliative Care Discussion: Discussion centered around conversation as far as prognosis with recent appointment, wondering given friends input, about pursuing second opinion. We did discuss in the context of follow-up mostly again would look at clinical trials. Dr. Feliz is pursuing further options per notes. Certainly it is in the norm for patients to seek information outside of their current treatment plan, depending on the recommendations, can be done locally or often clinical trials require more controlled environment. Explored feelings regarding this.Patient remains quite pragmatic, and able to verbalize feelings regarding prolonged trajectory of her current disease state Results - Lab Results Lab results reviewed: Yes Impression and Recommendations - Palliative Care Impression: This is a molly 67-year-old woman with metastatic lobular breast cancer, with increased bony metastasis. She did have an acute exacerbation of her pain. Currently this is improved on her increased regimen with the escalation of gabapentin. Her goals continue to be qualitative in nature. Recommendations/Counseling Done: 1. Pain of neoplastic origin. Current regimen includes methadone 30 mg 3 times daily, gabapentin 600 mg 3 times daily with most recent escalation, and oxycodone 20 mg 1-2 tabs as needed breakthrough pain. Currently this does appear to be managing her current level of pain, though I would put her pain tolerance as high given the extent of her metastatic disease as well as chronic pain, and sequela of this.Patient does note more "traveling" of pain, did discuss in the context of bony metastases if more pinpointed area of discomfort can explore further radiation. 2. Metastatic breast cancer. Did explore the benefits and burdens of follow- up regarding second opinion. Did encourage follow-up with Dr. Feliz regarding hopeful outcomes or benefits from this. 3. Advanced care planning. Patient has ALBIN ST in place, able to verbalize her goals of care, continues to explore in the context of the "what next" particularly in light of her most recent news from the oncologist.Supportive listening provided. Time Spent: 60 minutes with greater than 50% of this done in counseling regarding to pain management and symptoms, anticipatory guidance and psychosocial support and counseling
== END 2017-11-04 18:53 | disposition home or self-care (01) ==
LOC: PC 18:52
PROVIDERS: ATTEND Nurse Practitioner Adult Health
DX: Z51.5 Encounter for palliative care (principal); G89.3 Neoplasm related pain (acute) (chronic); C50.919 Malignant neoplasm of unspecified site of unspecified female breast; C79.51 Secondary malignant neoplasm of bone; Z79.899 Other long term (current) drug therapy; Z79.82 Long term (current) use of aspirin; M62.81 Muscle weakness (generalized); K59.03 Drug induced constipation; T40.2X5D Adverse effect of other opioids, subsequent encounter; Z79.891 Long term (current) use of opiate analgesic; Z66 Do not resuscitate
CPT/HCPCS: 99350

== ENCOUNTER 2017-11-12 15:00 | Outpatient (CLI) | payer OTHER ==
[2017-11-12 17:37] LABS: BILIRUBIN,URINE NEGATIVE (NEGATIVE); GLUCOSE, URINE (UA) NEGATIVE (NEGATIVE); KETONES,URINE (UA) NEGATIVE (NEGATIVE); LEUKOCYTE ESTERASE, URINE NEGATIVE (NEGATIVE); NITRITE,URINE NEGATIVE (NEGATIVE); OCCULT BLOOD,URINE NEGATIVE (NEGATIVE); PROTEIN,URINE NEGATIVE (NEGATIVE); UROBILINOGEN,URINE 0.2 (NORMAL) E.U./dL (NORMAL)
[2017-11-12 17:38] LABS: CLARITY,URINE CLEAR (CLEAR)
== END 2017-11-12 15:01 | disposition home or self-care (01) ==
LOC: LAB.R 15:00
PROVIDERS: ATTEND Nurse Practitioner Adult Health
DX: N30.00 Acute cystitis without hematuria (principal)
CPT/HCPCS: 81001; 81003; 87086

== ENCOUNTER 2017-12-07 11:27 | Outpatient (CLI) | payer OTHER ==
--- NOTE | 2017-12-07 12:35 | CONSULTATION NOTE ---
Palliative Care Follow Up - Referral Referring Provider: Dr. Christelle Feliz Time of Visit: 11:40-12:20 Referral setting: [facility] [place] Referral Reason: Pain of neoplastic Origin/Met Breast Cancer - Information Sources Records reviewed: Previous records reviewed History/Review of Systems obtained from: Patient, Family ( PC present for visit) Exam limitations: No limitations - History of Present Illness Update Brief HPI Update: This is a molly 67-year-old woman with lobular breast cancer with metastatic disease to the bones. She met with the oncologist today, they are going to continue the Ibrance, and letrozole as her marker is holding and looking at bone scan again in 3-4 months. They may need to follow-up with biopsy in the context of looking immunotherapy but did talk about next step as far as low- dose chemotherapy being Xeloda. This does make the patient feel better as far as having plan. This last month patient did have a period of increased confusion , was thinking it most likely was a UTI, as it turned out her urine sample was negative and in follow-up was actually sinusitis. She did have was treated with Augmentin with improvement of symptoms, but she is now having recurrent symptoms as far as increased headache some periorbital edema and tenderness over her left sinus area with palpation. She does have some lymphadenopathy on the left side as well. She is afebrile but is starting to feel more fatigue. We did discuss that initiating anabiotic this point in time she is using her Flonase as instructed, she is hesitant as it does cause her quite a bit of GI distress and diarrhea. In the context of the next step will make a referral onto ENT to manage more chronically, as patient does have long history in the past of sinusitis. I suspect with her pancytopenia this is going to be a recurrent problem. Her pain is much better on the gabapentin 600 mg 3 times daily, the pain specifically is a radiculopathy and lumbar stenosis, she is having some other areas of discomfort rib cage, neck, shoulder, and today scapula. That she has decreased her oxycodone use from a total of 10 tabs down to 6-8. She does feel her current regimen is manageable. Social History - Living Situation Living arrangement: At home Living Situation: With spouse/s.o. (She is here with her PC, who does oversee her care needs, patient does advocate mostly for herself.) Medications/Allergies - Medications Home Medications: Ambulatory Orders Medication Instructions Recorded Confirmed Aspirin 81 mg PO DAILY 02/16/13 12/07/17 Polyethylene Glycol 3350 [Miralax] 0.66 cap PO DAILY PRN 03/26/15 12/07/17 Letrozole 2.5 mg PO DAILY 10/07/15 12/07/17 Ondansetron HCl [Zofran] 4 mg PO Q6HR PRN 11/15/15 12/07/17 Omeprazole [PriLOSEC] 40 mg PO DAILY 12/17/15 12/07/17 Methadone 30 mg PO TID 06/30/16 12/07/17 Atorvastatin [Lipitor] 40 mg PO DAILY 03/30/17 12/07/17 Carvedilol 3.125 mg PO BID 03/30/17 12/07/17 Nitroglycerin 0.4 mg SL TID 04/27/17 12/07/17 Biotin 500 mcg PO TID 05/06/17 12/07/17 Best Cit/Mag/D3/Zn/System Support Specialist/Yahir/Bor 2 tab PO BID 05/06/17 12/07/17 [Citracal-Vit D + Magnesium Tab] Cholecalciferol [Vitamin D3] 5,000 unit PO DAILY 05/06/17 12/07/17 Fexofenadine HCl 180 mg PO DAILY 05/06/17 12/07/17 Guaifenesin [Mucinex] 600 mg PO BID PRN 05/06/17 12/07/17 Oxycodone HCl 20 - 40 mg PO Q3HR PRN 05/06/17 12/07/17 Sennosides [Senna Lax] 2 tab PO BID PRN 05/06/17 12/07/17 Gabapentin 600 mg PO TID 06/29/17 12/07/17 Escitalopram [Lexapro] 20 mg PO DAILY 10/19/17 12/07/17 Palbociclib [Ibrance] 75 mg PO .DAILY 3 WKS/1 OFF 11/04/17 12/07/17 Calcium Carbonate [Tums (Calcium 500 mg PO PRN PRN 12/07/17 12/07/17 Carbonate 500mg)] Fluticasone [Flonase] 1 spray INH DAILY 12/07/17 12/07/17 L.acid/L.casei/B.bif/B.dieter/Fos 1 cap PO BID 12/07/17 12/07/17 [Probiotic Blend Capsule] - Allergies Allergies/Adverse Reactions: Allergies Allergy/AdvReac Type Severity Reaction Status Date / Time oxaprozin [From Daypro] Allergy Intermediate Rash Verified 03/30/13 10:21 sulfamethoxazole Allergy Intermediate Rash Verified 02/16/13 00:35 [From Septra] erythromycin base AdvReac Intermediate Cramps Verified 02/16/13 01:01 [Erythromycin Base] minocycline [Minocycline] AdvReac Intermediate Cramps Verified 02/16/13 01:00 codeine [Codeine] AdvReac Mild Cramps Verified 02/16/13 01:00 meperidine AdvReac Unknown Anxiety Verified 07/25/13 10:12 Review of Systems - Constitutional Constitutional: reports: Fatigue, Weight gain (2 pounds; appetite improved) - Eyes Eyes: reports: Vision loss, Corrective lenses - Ears, Nose & Throat Ears, Nose & Throat: reports: Hearing loss, Hearing aids, Nasal pain, Nasal discharge, Nasal congestion, Postnasal drainage, Other (patient reports good results with augmentin; but now with new headache and pressure on sinuses; concerned about reccurence and continued AB) - Cardiovascular Cardiovascular: reports: Decr. exercise tolerance - Respiratory Respiratory: reports: SOB with exertion. denies: Cough - Gastrointestinal Gastrointestinal: reports: Change in bowel habits (having trouble regulating bowels with AB now bowel medications), Nausea (using ondansetron 1/2 x a week), Reflux/heartburn (using TUMS as needed), Good appetite - Genitourinary Genitourinary: denies: Dysuria - Musculoskeletal Musculoskeletal: reports: Back pain, Stiffness, Limited range of motion, Muscle weakness, Transfer issues (uses wheelchair for transfers;) - Integumentary Integumentary: reports: Dryness - Neurological Neurological: reports: General weakness, Headache (reports increase tension across frontal pain), Memory problems - Psychiatric Psychiatric: reports: Depression (feels controlled), Other (had some confusion with sinusitis) - Hematologic/Lymphatic Hematologic/Lymphatic: reports: Anemia, Recurrent infections (long time sinusitis in past; this is new; recurrent UTIs/cystits) - All Other Systems All Other Systems: reports: Reviewed and negative Physical Exam - Vital Signs Temperature: 36.8 C Pulse Rate: 63 Respiratory Rate: 18 Blood Pressure: 120/77 - Physical Exam General Appearance: positive: Mild distress (very fatigued from appointments) Eyes Bilateral: positive: Other (periorbital edema; slightly reddened conjuctivae) ENT: positive: No signs of dehydration Neck: positive: No JVD, Trachea midline, Lymphadenopathy (L) Cardiovascular: positive: Regular rate & rhythm Respiratory: positive: Breath sounds nml Abdomen: positive: Soft Skin: positive: Pallor, Other (face flushed) Extremities: positive: No pedal edema (has supportive stockings on) Neurologic/Psychiatric: positive: Oriented x3 Palliative Care - POLST Patient has POLST: Yes POLST Status: DNR, Selective Treatment Pain: Pain improved, Location (newly noted rib cage; neck pain no radiation/ nerve; scapula discomfort today; baseline lumbar/sacral pain 03/20; decreased use of btp oxycodone 20 mg 6-8 tabs; increased gabapentin 600 mg TID making large amount of difference in intensity of back pain/radiculopathy) Tiredness/Fatigue: Moderate (4-6) Drowsiness/Sedation: Moderate (4-6) Nausea: None Depression: None Anxiety: Mild (1-3) Dyspnea: None Anorexia: None Sleep: Sleeps well Constipation: Yes, Opoid induced, Intermittent constipation Feelings of wellbeing/Perceived Quality of Life: Good, Acceptable, Improved Performance Status: Patient is mostly wheelchair bound, she is participating in aqua therapy a couple times a week. This is improving as well as her tolerance of this she is able to tolerate 40-45 minutes. She is able to attend her ADLs with assistance with set up. - Palliative Care Discussion: Patient is encouraged with her increased improvement in pain management, she is feeling somewhat over fatigued and tired today and suspect may be having recurrent symptoms regarding her sinusitis. She is doing well as far as continuing to find meaning and connection in her day-to-day journey. She also appreciates her role and her support group, she does have good support from friends and family. Results - Lab Results Lab results reviewed: Yes Impression and Recommendations - Palliative Care Impression: This is a molly 67-year-old woman with metastatic lobular breast cancer with improved pain management with titrating gabapentin. She did present with increased confusion and was diagnosed with sinusitis, with good response to Augmentin. She does though appear to be having a relapse, discussed with her pancytopenia and long-term history of sinusitis would recommend follow-up with ENT, she is in agreement Recommendations/Counseling Done: 1. Pain of neoplastic origin. Patient on methadone 10 mg 3 times daily with oxycodone 20 mg tabs for breakthrough pain. Due to the neuropathic nature of her pain, increase the gabapentin to 600 mg 3 times daily. Currently feels regimen adequate, will continue to monitor. 2. Sinusitis. Patient received a total of 10 days of Augmentin. This did resolve her symptoms for short period of time, she is presenting with some recurrent symptoms. We did discuss weighing benefits and burdens regarding referral, will refer on to ENT. 3. Metastatic breast cancer. Patient continues to meet with oncologist, does have a plan for the future which decreases her anxiety. We will continue to weigh benefits and burdens as decisions come about. Time Spent: 80 minutes with greater than 50% of this done in counseling regarding opioid use , management of sinusitis, and psychosocial support and anticipatory guidance
== END 2017-12-07 11:28 | disposition home or self-care (01) ==
LOC: PC 11:27
PROVIDERS: ATTEND Nurse Practitioner Adult Health
DX: Z51.5 Encounter for palliative care (principal); G89.3 Neoplasm related pain (acute) (chronic); C50.919 Malignant neoplasm of unspecified site of unspecified female breast; C79.51 Secondary malignant neoplasm of bone; J32.9 Chronic sinusitis, unspecified; R53.83 Other fatigue; Z79.82 Long term (current) use of aspirin; Z79.891 Long term (current) use of opiate analgesic; M62.81 Muscle weakness (generalized); F41.9 Anxiety disorder, unspecified; D61.818 Other pancytopenia; Z66 Do not resuscitate
CPT/HCPCS: 99215

== ENCOUNTER 2017-12-16 14:54 | Outpatient (CLI) | payer OTHER ==
--- NOTE | 2017-12-17 12:29 | CT Report ---
CT SINUSES: 12/16/2017 CLINICAL INDICATION: Chronic sinus disease, headache. TECHNIQUE: Axial CT images of the paranasal sinuses were obtained without contrast, following which sagittal and coronal reconstructions were performed. COMPARISON: No previous CT is available for comparison. FINDINGS: There is a small air fluid level in the right maxillary sinus, as well as right greater than left maxillary, ethmoid, and right frontal and sphenoid mucosal thickening. There is leftward septal deviation. The ostiomeatal units are occluded by soft tissue bilaterally. No osseous destruction is seen. The visualized intraorbital contents are unremarkable. IMPRESSION: ACUTE ON CHRONIC SINUSITIS ABOVE. CT DOSE REDUCTION STATEMENT In accordance with CT protocol optimization, one or more of the following dose reduction techniques were utilized for this exam: automated exposure control, adjustment of mA and/or KV based on patient size, or use of iterative reconstructive technique. TD: 12/17/2017 12:28
== END 2017-12-16 14:55 | disposition home or self-care (01) ==
LOC: DI 14:54
PROVIDERS: ATTEND Otolaryngology
DX: J01.40 Acute pansinusitis, unspecified (principal); J32.4 Chronic pansinusitis
CPT/HCPCS: 70486

== ENCOUNTER 2018-01-27 15:31 | Outpatient (CLI) | payer OTHER ==
--- NOTE | 2018-01-27 17:20 | CONSULTATION NOTE ---
Palliative Care Follow Up - Referral Referring Provider: Dr. Christelle Feliz Time of Visit: [id number] Referral setting: [facility] [place] Referral Reason: Pain of neoplastic origin/Met. Breast Cancer - Information Sources Records reviewed: Previous records reviewed History/Review of Systems obtained from: Patient, Family ( PC present for visit) Exam limitations: No limitations - History of Present Illness Update Brief HPI Update: This is a molly 67-year-old woman with lobular breast cancer with metastatic disease to the bones. She is currently on Ibrance and Letrozole, her CA 15-3 antigen has been increasing slightly, but holding current treatment regimen. Patient has seen ENT since last visit, she has been diagnosed with sinusitis, and has undergone multiple doses of antibiotics as well as steroids. She has just completed this without resolution of her symptoms, will be following up. There is concern of course given her immunosuppression from her treatment, regarding next steps. Patient being seen for her pain management, she does have baseline pain in her pelvis bilaterally in her hips and intermittent sharp shooting down her legs. She does perceive she has had increased pain, neuropathic in nature, that has been sharp shooting both down her left and right, with right greater than left. She also reports some intensity at fold of buttocks and thigh. This has been exacerbated for about 2 weeks, she reports new pain in the midthoracic area bilaterally to her shoulders and scapula, this is exacerbated with twisting turning reaching, more of a sharp shooting pain. She also has a new intensity of pain in her left upper humerus, this is tender with palpation. Noted also she did have improvement with her pain with the steroids, this is not a surprise given we often use dexamethasone for bone pain. She also has some acute pain from a recent fall on her knees bilaterally with an abrasion on her left knee. She does rate her pain a 6 out of 10, is most intense on awakening. She is also most active when she gets up in the morning doing her ADLs. She is currently on methadone 30 mg 3 times daily, gabapentin 600 mg 3 times daily, as well as her use of oxycodone 20 mg tabs with increased breakthrough use over the last couple weeks as well. She does not perceive increased sedation, though does have intermittent lethargy with this. Social History - Living Situation Living arrangement: At home Living Situation: With spouse/s.o. (PC works during the day; has many friends and family she keeps in contact with;) Medications/Allergies - Medications Home Medications: Ambulatory Orders Medication Instructions Recorded Confirmed Aspirin 81 mg PO DAILY 02/16/13 01/27/18 Polyethylene Glycol 3350 [Miralax] 0.66 cap PO DAILY PRN 03/26/15 01/27/18 Letrozole 2.5 mg PO DAILY 10/07/15 01/27/18 Ondansetron HCl [Zofran] 4 mg PO Q6HR PRN 11/15/15 01/27/18 Omeprazole [PriLOSEC] 40 mg PO DAILY 12/17/15 01/27/18 Methadone 30 mg PO TID 06/30/16 01/27/18 Atorvastatin [Lipitor] 40 mg PO DAILY 03/30/17 01/27/18 Carvedilol 3.125 mg PO BID 03/30/17 01/27/18 Nitroglycerin 0.4 mg SL PRN PRN 04/27/17 01/27/18 Biotin 500 mcg PO TID 05/06/17 01/27/18 Best Cit/Mag/D3/Zn/Clinical Psychology Professor/Yahir/Bor 2 tab PO BID 05/06/17 01/27/18 [Citracal-Vit D + Magnesium Tab] Cholecalciferol [Vitamin D3] 5,000 unit PO DAILY 05/06/17 01/27/18 Fexofenadine HCl 180 mg PO DAILY 05/06/17 01/27/18 Guaifenesin [Mucinex] 600 mg PO BID PRN 05/06/17 01/27/18 Oxycodone HCl 20 - 40 mg PO Q3HR PRN 05/06/17 01/27/18 Sennosides [Senna Lax] 2 tab PO BID PRN 05/06/17 01/27/18 Gabapentin 700 mg PO TID 06/29/17 01/27/18 Escitalopram [Lexapro] 20 mg PO DAILY 10/19/17 01/27/18 Palbociclib [Ibrance] 75 mg PO .DAILY 3 WKS/1 OFF 11/04/17 01/27/18 Calcium Carbonate [Tums (Calcium 500 mg PO PRN PRN 12/07/17 01/27/18 Carbonate 500mg)] Fluticasone [Flonase] 1 spray INH DAILY 12/07/17 01/27/18 L.acid/L.casei/B.bif/B.dieter/Fos 1 cap PO BID 12/07/17 01/27/18 [Probiotic Blend Capsule] D-[place] 500 mg PO BID 01/04/18 01/27/18 Losartan Potassium 12.5 mg PO DAILY 01/28/18 01/28/18 - Allergies Allergies/Adverse Reactions: Allergies Allergy/AdvReac Type Severity Reaction Status Date / Time oxaprozin [From Day] Allergy Intermediate Rash Verified 03/30/13 10:21 sulfamethoxazole Allergy Intermediate Rash Verified 02/16/13 00:35 [From Junra] erythromycin base AdvReac Intermediate Cramps Verified 02/16/13 01:01 [Erythromycin Base] minocycline [Minocycline] AdvReac Intermediate Cramps Verified 02/16/13 01:00 codeine [Codeine] AdvReac Mild Cramps Verified 02/16/13 01:00 meperidine AdvReac Unknown Anxiety Verified 07/25/13 10:12 Review of Systems - Constitutional Constitutional: reports: Fatigue, Weight gain (has been on sterioids/gabapentin reports gained about 10 pounds) - Eyes Eyes: reports: Vision loss, Corrective lenses - Ears, Nose & Throat Ears, Nose & Throat: reports: Hearing loss, Hearing aids - Cardiovascular Cardiovascular: reports: Decr. exercise tolerance. denies: Chest pain - Respiratory Respiratory: reports: SOB with exertion. denies: SOB at rest - Gastrointestinal Gastrointestinal: reports: Nausea (intermittent), Good appetite. denies: Constipation, Diarrhea, Reflux/heartburn - Genitourinary Genitourinary: reports: Frequency, Urgency, Other (occasional cystitis; not sustained) - Musculoskeletal Musculoskeletal: reports: Muscle pain, Back pain, Muscle aches, Stiffness, Limited range of motion, Muscle weakness, Transfer issues (wheelchair dependent mostly) - Integumentary Integumentary: reports: Dryness, Hair changes (thinning) - Neurological Neurological: reports: Other (increase in sharp shooting pain in sacrum and down legs) - Psychiatric Psychiatric: reports: Anxiety (exacerbated by recent steroids) - Hematologic/Lymphatic Hematologic/Lymphatic: reports: Anemia, Recurrent infections (having difficulty clearing sinus infection; has been on antibiotics and steroids) - All Other Systems All Other Systems: reports: Reviewed and negative Physical Exam - Vital Signs Pulse Rate: 64 Blood Pressure: 151/97 - Physical Exam General Appearance: positive: Mild distress, Other (fatigued) Eyes Bilateral: positive: Normal inspection, Other (periorbial edema) ENT: positive: No signs of dehydration Neck: positive: No JVD, Trachea midline Cardiovascular: positive: Regular rate & rhythm Respiratory: positive: Breath sounds nml Abdomen: positive: Soft Skin: positive: Pallor, Dryness, Bruising, Wound (left knee superficial scrape) Extremities: positive: Pedal edema (trace) Neurologic/Psychiatric: positive: Oriented x3, Mood/affect nml, Flat affect Palliative Care - POLST Patient has POLST: Yes POLST Status: DNR, Selective Treatment Pain: Pain worsening Tiredness/Fatigue: Moderate (4-6) Drowsiness/Sedation: Moderate (4-6) Nausea: Mild (1-3) Depression: Moderate (4-6) Anxiety: Moderate (4-6) Dyspnea: Mild (1-3) Anorexia: None Sleep: Variable sleep pattern (up at night to void with exacerbation of pain at times) Constipation: Yes, Opoid induced, Managed (back to baseline meds after AB/had difficulty with diarrhea) Performance Status: Patient mostly wheelchair bound, she does transfer and ambulates a few steps at times. She is independent still and bathing, and dressing, but does need safety supervision. Patient with recent fall, attributes this to dizziness, with some slight injury. - Palliative Care Discussion: Discussion focused on current quality of life, pain management, and ongoing uncertainty related to both treatment of her sinusitis and cancer. Patient does continue to seek outside support through her group that healing circles, has good support at home, and many friends and family that care about her. Results - Lab Results Lab results reviewed: Yes Impression and Recommendations - Palliative Care Impression: This is a molly 67-year-old woman with metastatic lobular breast cancer, with continuing fluctuating pain status, and ongoing issues related to her sinusitis. Palliative care to provide support for pain management and symptom burden, as well as anticipatory guidance. Recommendations/Counseling Done: 1. Pain of neoplastic origin. Patient on methadone 10 mg 3 times a day, with oxycodone 20 mg tabs for breakthrough pain. Had improved with the increase of gabapentin to 600 mg 3 times daily, she presents with some increase intensity of neuropathic pain in nature, as well as some new areas of pain suspicious for increasing bony metastases. There has been discussion regarding follow-up bone scan, would recommend follow Up stable to confirm correlation. Patient most likely would be a candidate for localized radiation if pain became more severe. Reassured would not be the intensity that she received before with her sacrum , and willing to follow-up with Dr. renteria back if things would be of benefit. Will await and see if oncologist or his bone scan. Given patient's recent fall , current level of sedation, discussed just "eeking" Up gabapentin 100 mg per week, but if intensity or pain unbearable more than willing to do this more quickly. Relayed my concern of patient being alone in the context of increasing her fall risk. This was an acceptable plan, she will contact me if she wants more rapid titration. 2. Sinusitis. Patient to follow-up with ENT, most likely impacting her overall levels of fatigue, as well as dealing with side effects of medications used. 3. Fatigue. Patient did relay better feeling of well-being on steroid, did discuss in the context of long-term management not practical, but can consider if she has an acute pain flare. The use of Decadron. Did discuss though trying some Ritalin, patient does have pending vacation, and wants to have more energy and be able to participate. Prescription was provided of Ritalin 5 mg half tab to full tab twice daily, did encourage to try over the weekend when spouse is present to monitor side effects. Counseling done regarding use. Time Spent: 60 minutes with greater than 50% of this done in counseling regarding pain and symptom management, psychosocial support, and anticipatory guidance
== END 2018-01-27 15:32 | disposition home or self-care (01) ==
LOC: PC 15:31
PROVIDERS: ATTEND Nurse Practitioner Adult Health
DX: Z51.5 Encounter for palliative care (principal); G89.3 Neoplasm related pain (acute) (chronic); J32.9 Chronic sinusitis, unspecified; R53.83 Other fatigue; C50.919 Malignant neoplasm of unspecified site of unspecified female breast; C79.51 Secondary malignant neoplasm of bone; S80.212A Abrasion, left knee, initial encounter; W19.XXXA Unspecified fall, initial encounter; Z79.82 Long term (current) use of aspirin; Z79.891 Long term (current) use of opiate analgesic; Z79.899 Other long term (current) drug therapy; Z79.52 Long term (current) use of systemic steroids; Z91.81 History of falling; Z66 Do not resuscitate
CPT/HCPCS: 99215

== ENCOUNTER 2018-02-05 10:47 | Outpatient (CLI) | payer OTHER ==
--- NOTE | 2018-02-06 03:54 | CT Report ---
EXAM: CT SINUS EXAM DATE: 02/05/2018 11:10 AM. HISTORY: COMPARISONS: None. TECHNIQUE: Routine multi-axial CT imaging performed through the sinuses. Iodinated IV contrast: None. Reconstructions: Coronal. In accordance with CT protocol optimization, one or more of the following dose reduction techniques w ere utilized for this exam: automated exposure control, adjustment of mA and/or KV based on patient s ize, or use of iterative reconstructive technique. FINDINGS: RIGHT Frontal: There is moderate mucosal thickening. Ethmoid: There is opacification of several right ethmoid air cells. Maxillary: There is mild mucosal thickening and a small fluid level. Sphenoid: Normal. Drainage Pathways: Ostiomeatal unit patent.. LEFT Frontal: Normal. Ethmoid: Normal. Maxillary: There is a small fluid level. Sphenoid: Normal. Drainage Pathways: Ostiomeatal unit patent. Nasal Cavity: There is leftward deviation and spurring of nasal septum. There is mucosal thickening o f nasal turbinates bilaterally. Osseous Structures: Unremarkable. Orbits: Unremarkable. Other: None. IMPRESSION: Mild acute and chronic appearing paranasal sinus disease with small bilateral maxillary s inus fluid levels as well as early right-sided paranasal sinus mucosal thickening. [facility] Referring Provider Line: [phone] SITE ID: [id number]
== END 2018-02-05 10:48 | disposition home or self-care (01) ==
LOC: DI 10:47
PROVIDERS: ATTEND Otolaryngology
DX: J32.8 Other chronic sinusitis (principal); J01.90 Acute sinusitis, unspecified
CPT/HCPCS: 70486

== ENCOUNTER 2018-02-09 08:41 | Outpatient (CLI) | payer OTHER ==
[2018-02-09 12:05] LABS: ALBUMIN 3.3 g/dL (3.2-5.5); ALBUMIN/GLOBULIN RATIO 1.1 (1.0-2.2); BILIRUBIN,TOTAL 0.4 mg/dL (0.2-1.0); CALCIUM 9.3 mg/dL (8.5-10.3); CREATININE 1.1 mg/dL (0.4-1.0); TOTAL PROTEIN 6.3 g/dL (6.7-8.2)
[2018-02-09 12:15] LABS: HB2 TOTAL 11.1 g/dL; HEMOGLOBIN A1C 0.39 g/dL; HEMOGLOBIN A1C % 5.4 % (4.6-6.2)
== END 2018-02-09 08:42 | disposition home or self-care (01) ==
LOC: LAB.F 08:41
PROVIDERS: ATTEND Physician Assistant
DX: E11.9 Type 2 diabetes mellitus without complications (principal)
CPT/HCPCS: 36415; 80053; 83036

== ENCOUNTER 2018-02-22 13:49 | Outpatient (CLI) | payer OTHER ==
[~2018-02-22 13:49] MED LIST: GADOBUTROL 10 MMOL/10 ML SYRINGE ONE
[2018-02-22] MEDS ORDERED: GADOBUTROL 10 MMOL/10 ML SYRINGE IVP ONE (15:35)
--- NOTE | 2018-02-22 16:40 | MRI Report ---
EXAM: MRI THORACIC SPINE WITHOUT AND WITH CONTRAST EXAM DATE: 02/22/2018 04:06 PM. CLINICAL HISTORY: 67-year-old woman with severe exacerbation of back pain and history of breast cance r with bone metastases. COMPARISONS: Lumbar spine MRI on 07/12/2017. TECHNIQUE: Multiplanar, multisequence T1-weighted and fluid-sensitive sequences of the thoracic spine from C7 to L1 before and after administration of intravenous contrast. Other: None. IV contrast: 10M L GADAVIST. FINDINGS: Spinal Cord: Thoracic spinal cord is normal in caliber without signal abnormality or abnormal enhance ment. Alignment: No significant spondylolisthesis or scoliosis. Bone Marrow: Multiple infiltrating lesions are present in the thoracic spine as well as the visualize d lower cervical spine and upper lumbar spine, most consistent with metastases. There has been comple te or near complete replacement of marrow in the C7, T9, T10, and T11 vertebral bodies. No evidence o f height loss to suggest fracture. There is edema and enhancement in the bone marrow adjacent to the infiltrative lesions in the T7, T9, and, T10. Disk Levels/Facets: C7-T1: Unremarkable. T1-T2: Unremarkable. T2-T3: Broad-based disk bulge results in mild narrowing of the central canal. No significant neural f oraminal narrowing. T3-T4: Small broad-based disk bulge results in minimal narrowing of the central canal. No significant neural foraminal narrowing. T4-T5: Small broad-based disk bulge results in minimal narrowing of the central canal. No significant neural foraminal narrowing. T5-T6: Small broad-based disk bulge results in minimal narrowing of the central canal. No significant neural foraminal narrowing. T6-T7: Small broad-based disk bulge results in minimal narrowing of the central canal. No significant neural foraminal narrowing. T7-T8: Small broad-based disk bulge results in mild narrowing of the central canal. Disk osteophyte c omplex in the subarticular space results in mdyz-wk-igqhbvnn narrowing of the left neural foramen. T8-T9: Small broad-based disk bulge results in mild narrowing of the central canal. Disk in the subar ticular spaces results in mild narrowing of the neural foramina bilaterally. T9-T10: Small broad-based disk bulge results in mild narrowing of the central canal. Facet hypertroph y and disk osteophyte complex in the subarticular spaces results in mild to moderate narrowing of the right neural foramen and mild narrowing on the left. T10-T11: Small broad-based disk bulge and mild facet hypertrophy result in mild narrowing of the cent ral canal. Facet hypertrophy and disk in the subarticular spaces results in miky-gj-nladsjgd narrowin g of the neural foramina bilaterally. T11-T12: Small broad-based disk bulge results in mild narrowing of the central canal. No significant neural foraminal narrowing. T12-L1: Unremarkable. Spinal Canal: No enhancing masses within the spinal canal. No epidural abscess. Musculature: Normal. No edema, enhancement, or fatty atrophy. Other: The visualized lungs, mediastinum, and abdominal cavity are unremarkable. IMPRESSION: 1. No acute fracture or malalignment. 2. Multiple infiltrative lesions in the visualized bone marrow, consistent with metastases. There is bone marrow edema and enhancement surrounding the T7, T9, and T10 lesions. 3. Small broad-based disk bulges are present at multiple levels resulting in mild or minimal central canal stenosis. Degenerative changes also result in variable neural foraminal narrowing, but no high- grade stenosis. [facility] Referring Provider Line: [phone] SITE ID: [id number]
--- NOTE | 2018-02-22 17:24 | MRI Preliminary Report ---
Exam: MRI SACRUM/COCCYX IMPRESSION: 1. Diffuse sclerotic metastases redemonstrated. These are similar in size and number compared to prev ious. 2. H-type sacral fracture with transverse component at S2, similar in morphology with persistent bone marrow edema and fluid within the fracture clefts at the ala. 3. No gross new fracture visualized. [facility] MUSCULOSKELETAL RADIOLOGY SECTION SITE ID: [id number]
--- NOTE | 2018-02-22 17:54 | MRI Report ---
EXAM: MRI LUMBAR SPINE WITHOUT AND WITH CONTRAST EXAM DATE: 02/22/2018 04:06 PM. CLINICAL HISTORY: 67-year-old woman with severe exacerbation of back/sacral pain and history of breas t cancer with bony metastases. COMPARISONS: 07/12/2017 MRI. TECHNIQUE: Multiplanar, multisequence T1-weighted and fluid-sensitive sequences of the lumbar spine f rom T12 to S1 before and after administration of intravenous contrast. Other: None. IV contrast: 10ML GADAVIST. FINDINGS: Spinal Cord: The conus terminates at L1-L2. Cauda equina nerve roots are normal in appearance. No abn ormal enhancement. Alignment: Grade 1 anterolisthesis of L4 on L5 measures approximately 8 mm, unchanged from the 2016 exam. Bone Marrow: Five gei-xxe-rkfcriv lumbar vertebral bodies are present. Infiltrative lesions are prese nt in the bone marrow throughout the lumbar spine, consistent with metastases and similar to the 11/2016 exam except for progression of the L2 lesion to now involve the entire vertebral body. Lumbar vertebral body heights are maintained. However, there is a step-off with focal angulation and fracture plane through S2. Bone marrow edema is also present in the sacral bilaterally and there are T2 hyperintense clefts and oblique sagittal planes. Findings are consistent with sacral insufficiency fracture, but appearance is similar to the 07/12/2017 exam. Disk Levels/Facets: T12-L1: There is disk desiccation without signal and height loss. Small broad-based disk bulge is pre sent without significant narrowing of the central canal, unchanged. No significant neural foraminal n arrowing. L1-L2: Small broad-based disk bulge results in minimal narrowing of the central canal, unchanged. No significant neural foraminal narrowing. L2-L3: There is disk desiccation and mild height loss. Small broad-based disk bulge results in minima l narrowing of the central canal, unchanged. Facet hypertrophy results in mild to moderate narrowing of the left neural foramen and mild narrowing on the right, unchanged. L3-L4: There is disk desiccation and mild height loss. Small broad-based disk bulge and facet hypertr ophy result in mild narrowing of the central canal, unchanged. Facet hypertrophy and disk in the suba rticular spaces result in uggk-ub-haqatdod narrowing of the neural foramina bilaterally, unchanged. L4-L5: There is disk desiccation and moderate height loss. Anterolisthesis of L4 on L5 combined with broad-based disk bulge and marked facet hypertrophy result in moderate narrowing of the central canal with near effacement of the CSF space overall and effacement of the lateral recesses bilaterally, un changed. The passing L5 nerve roots may be compromised. Anterolisthesis and disk in the subarticular spaces result in mild to moderate narrowing of the neural foramina bilaterally, left side worse than right, unchanged. L5-S1: There is disk desiccation and moderate height loss. No significant central canal stenosis. Fac et hypertrophy results in mild narrowing of the left neural foramen. Enhancing soft tissue mass engul fs the exiting right L5 nerve roots, significantly progressed compared to the prior exam. Spinal Canal: No enhancing masses within the spinal canal. No epidural abscess. Musculature: No fatty atrophy or edema in the paravertebral muscles. Other: Extraosseous spread of disease is present along the sacrum, right side greater than left, but incompletely visualized on this exam. IMPRESSION: 1. Multiple infiltrative lesions in the lumbar spine and visualized pelvis, as on the 07/12/2017 exam and consistent with metastatic disease. There has been progression of the lesion within the L2 verte bral body and extraosseous spread of the right sacral lesion which now surrounds the exiting right L5 nerve root. 2. Fracture through the S2 vertebral body with sagittal components through the sacral alae bilaterall y, most consistent with insufficiency fracture but similar in appearance to the 07/12/2017 exam. 3. Degenerative changes result in the following: - L2-L3: Yfbo-aj-orqbmtzo narrowing of the left neural foramen and mild narrowing on the right, uncha nged. - L3-L4: Mild narrowing of the central canal, unchanged. Mild to moderate narrowing of the neural for sebastien bilaterally, unchanged. - L4-L5: Grade 1 anterolisthesis of L4 on L5 measures approximately 8 mm, unchanged. Moderate narrowi ng of the central canal with near effacement of the CSF space overall but effacement of the lateral r ecesses bilaterally, unchanged. The passing L5 nerve roots may be compromised. Mild to moderate narro wing of the neural foramina bilaterally, left side worse than right, unchanged. - L5-S1: Mild narrowing of the left neural foramen. Soft tissue lesion surrounds the exiting right L5 nerve root, as noted above. Comment: The following findings are so common in adults without low back pain that while we report th eir presence, they must be interpreted with caution and in the context of the clinical situation. (Re erik Lott et al, Spine 2001) Prevalence of findings in patients without low back pain: Disk degeneration (any evidence): 92% Disk desiccation/T2 signal loss: 83% Disk height loss: 56% Disk bulge: 64% Disk protrusion: 32% Annular tear/high intensity zone: 38% [facility] Referring Provider Line: [phone] SITE ID: [id number]
--- NOTE | 2018-02-22 19:48 | MRI Report ---
EXAM: MRI SACRUM/SI JOINTS WITHOUT CONTRAST EXAM DATE: 02/22/2018 04:06 PM. CLINICAL HISTORY: Severe exacerbation of back/sacral pain, sharp shoot. COMPARISON: MRI 07/12/2017. TECHNIQUE: Multiplanar, multisequence T1-weighted and fluid-sensitive sequences of the sacrum/sacroil iac joints without contrast. Other: None. FINDINGS: Bones: Innumerable sclerotic metastases redemonstrated in the lower lumbar spine, sacrum, and partial ly visualized bony pelvis and proximal femurs. These are similar in size and number. Persistent bone marrow edema at the H-type fracture of the bilateral sacral ala and S2 segment. Persi stent fluid in the fracture clefts of the bilateral sacral ala. Height loss at the anterior superior aspect of the S2 segment is similar compared to previous. No gross new fracture. Lower lumbar spine: Degenerative disk and facet changes partially visualized including grade 1 judith listhesis of L4 on L5. Please see dedicated MRI lumbar spine performed on the same day for further de tails. Sacroiliac Joints: Degenerative changes bilaterally. No joint effusion. Right Hip: Degenerative changes partially visualized. No joint effusion. Left Hip: Degenerative changes partially visualized. Possible small joint effusion. Symphysis Pubis: Not included in mehig-dm-udfe. Musculature: Mild edema and enhancement redemonstrated throughout the musculature, most prominent in the bilateral piriformis muscles, similar. Neurologic Structures: The sacral neural foramina are patent. Mild edema and enhancement surrounds th e nerve roots in the bilateral S1, S2, and S3 neural foramen. The visualized sciatic nerves are unremarkable. Pelvic Cavity: The visualized bowel, bladder, and reproductive organs are unremarkable. No lymphadeno leanne. Mild edema and enhancement in the presacral space, similar. Other: Mild subcutaneous edema partially visualized posteriorly. IMPRESSION: 1. Diffuse sclerotic metastases redemonstrated. These are similar in size and number compared to prev ious. 2. H-type sacral fracture with transverse component at S2, similar in morphology with persistent bone marrow edema and fluid within the fracture clefts at the ala. 3. No gross new fracture visualized. [facility] MUSCULOSKELETAL RADIOLOGY SECTION Referring Provider Line: [phone] SITE ID: [id number]
== END 2018-02-22 13:50 | disposition home or self-care (01) ==
LOC: DI 13:49
PROVIDERS: ATTEND Nurse Practitioner Adult Health
DX: C79.51 Secondary malignant neoplasm of bone (principal); M84.48XA Pathological fracture, other site, initial encounter for fracture; M53.3 Sacrococcygeal disorders, not elsewhere classified; M54.9 Dorsalgia, unspecified; M79.659 Pain in unspecified thigh; Z85.3 Personal history of malignant neoplasm of breast
CPT/HCPCS: 72157; 72158; 72195; A9585

== ENCOUNTER 2018-02-23 08:46 | Outpatient (CLI) | payer OTHER ==
--- NOTE | 2018-02-23 13:02 | Nuclear Medicine Report ---
EXAM: BONE SCAN EXAM DATE: 02/23/2018 12:32 PM. CLINICAL HISTORY: BREAST CANCER W/METS. COMPARISON: Bone scan 10/07/2017. MRI thoracic spine and lumbar spine, and sacrum 02/22/2018. TECHNIQUE: Following the intravenous administration of 32.3 mCi of technetium 99m MDP and an appropri ate delay, a whole-body scan was performed in anterior and posterior projections. FINDINGS: Exam Quality: Normal overall osseous radiotracer uptake. Physiological tracer uptake in bilateral col lecting systems. Skull: There are persistent foci of increased uptake in the skull, perhaps modestly larger compared t o prior. Thorax: There is a new focus of increased uptake in the medial right posterior fifth rib. There are p ersistent foci of increased uptake in the sternum and left clavicular head. Stable increased uptake i n lower left anterior ribs. Pelvis: There is persistent abnormal increased uptake in the sacrum, which appears decreased in inten sity compared to prior. Spine: There are multiple lesions in the thoracic and lumbar spine, probably similar to prior. Extremities: There are stable foci of increased uptake in the right and left proximal humeri. Persist ent abnormal increased uptake in the left greater than right femurs. There are bilateral knee prosthe ses. There is decreased uptake in the mid feet. IMPRESSION: 1. Multifocal skeletal metastatic disease. 2. Compared to the prior bone scan, new lesion in the medial right posterior fifth rib. Decreased int ensity of uptake in sacral metastases. [facility] Referring Provider Line: [phone] SITE ID: [id number]
== END 2018-02-23 08:47 | disposition home or self-care (01) ==
LOC: DI 08:46
PROVIDERS: ATTEND Internal Medicine Hematology & Oncology
DX: C50.919 Malignant neoplasm of unspecified site of unspecified female breast (principal); C79.51 Secondary malignant neoplasm of bone
CPT/HCPCS: 78306; A9503

== ENCOUNTER 2018-03-10 19:05 | Outpatient (CLI) | payer OTHER ==
--- NOTE | 2018-03-10 21:37 | CONSULTATION NOTE ---
Palliative Care Follow Up - Referral Referring Provider: Dr. Christelle Feliz Time of Visit: [id number] Referral setting: Home (Is a taxing considerable effort for the patient to leave the home given her recent pain exacerbation. Also to provide family counseling with partner in home setting) Referral Reason: Metastatic Breast Cancer/Bone mets/Pain of neoplastic origin - Information Sources Records reviewed: Previous records reviewed History/Review of Systems obtained from: Patient, Family ( PC present for visit) Exam limitations: Clinical condition (patient with increased STM issues) - History of Present Illness Update Brief HPI Update: This is a 67-year-old woman with metastatic breast cancer involving the bones, with recent increase of her CA-15-3, and significant increase in the severity of her underlying pain. She has new pain on her left side and thigh, that wrapped around the left buttock was worsening with transfers, sitting on the toilet seat, who is causing her severe distress. In follow-up did start her on Decadron 4 mg twice daily, and patient received both bone scan and MRI of sacrum /CA joints, thoracic spine, and lumbar spine. The dexamethasone did Relieve the severity of the pain, but patient still presents with concerning symptoms of anal numbness, new incontinence of stool at nighttime, some incontinence of urine, numbness in her right thigh and foot which has increased, as well as some intermittent abduction of her right ankle and foot. Patient is due to see radiation oncologist this next week, she is having some symptoms related to tolerating the dexamethasone, but given her pain relief will leave at current dosing and await outcome of that appointment. Medication oncologist is going to change her regimen from IV brands and leches all to Xeloda, she does have some trepidation, as the main side effect is diarrhea. Of note she also has increased pain and tenderness in her mid upper thoracic area, which correlates with her MRI spine which showed multiple infiltrative lesions with bone marrow edema and enhancement around the T7's, T9 and T10 lesions. Other new presenting symptoms as patient has had 2 episodes of chest pain recently, these were relieved with nitro, which also relieves some shortness of breath. Her last episode was on Wednesday,. Social History - Living Situation Living arrangement: At home Living Situation: With spouse/s.o. (Patient recently given up driving, needing increased support around transportation and some ADLs. works, working on accommodating new functional decline. Does remain stressful as new normal is defined.) Medications/Allergies - Medications Home Medications: Ambulatory Orders Medication Instructions Recorded Confirmed Aspirin 81 mg PO DAILY 02/16/13 03/10/18 Polyethylene Glycol 3350 [Miralax] 0.66 cap PO DAILY PRN 03/26/15 03/10/18 Letrozole 2.5 mg PO DAILY 10/07/15 03/01/18 Ondansetron HCl [Zofran] 4 mg PO Q6HR PRN 11/15/15 03/10/18 Omeprazole [PriLOSEC] 40 mg PO DAILY 12/17/15 03/10/18 Methadone 30 mg PO TID 06/30/16 03/01/18 Atorvastatin [Lipitor] 40 mg PO DAILY 03/30/17 03/10/18 Carvedilol 3.125 mg PO BID 03/30/17 03/10/18 Nitroglycerin 0.4 mg SL PRN PRN 04/27/17 03/10/18 Biotin 500 mcg PO TID 05/06/17 03/10/18 Best Cit/Mag/D3/Zn/Mine Technician/Yahir/Bor 2 tab PO BID 05/06/17 03/10/18 [Citracal-Vit D + Magnesium Tab] Cholecalciferol [Vitamin D3] 5,000 unit PO DAILY 05/06/17 03/10/18 Fexofenadine HCl 180 mg PO DAILY 05/06/17 03/01/18 Guaifenesin [Mucinex] 600 mg PO BID PRN 05/06/17 03/01/18 Oxycodone HCl 20 - 40 mg PO Q3HR PRN 05/06/17 03/10/18 Sennosides [Senna Lax] 2 tab PO BID PRN 05/06/17 03/10/18 Gabapentin 700 mg PO TID 06/29/17 03/01/18 Escitalopram [Lexapro] 20 mg PO DAILY 10/19/17 03/01/18 Palbociclib [Ibrance] 75 mg PO .DAILY 3 WKS/1 OFF 11/04/17 03/10/18 Calcium Carbonate [Tums (Calcium 500 mg PO PRN PRN 12/07/17 03/10/18 Carbonate 500mg)] Fluticasone [Flonase] 1 spray INH DAILY 12/07/17 03/01/18 L.acid/L.casei/B.bif/B.dieter/Fos 1 cap PO BID 12/07/17 03/01/18 [Probiotic Blend Capsule] D-Manose 500 mg PO BID 01/04/18 03/10/18 Losartan Potassium 12.5 mg PO DAILY 01/28/18 03/01/18 Methylphenidate [Ritalin] 2.5 - 5 mg PO .1-2 X DAILY PRN MDD 02/01/18 03/10/18 lethargy Dexamethasone 4 mg PO BID 03/01/18 03/10/18 - Allergies Allergies/Adverse Reactions: Allergies Allergy/AdvReac Type Severity Reaction Status Date / Time oxaprozin [From ] Allergy Intermediate Rash Verified 03/30/13 10:21 sulfamethoxazole Allergy Intermediate Rash Verified 02/16/13 00:35 [From ] erythromycin base AdvReac Intermediate Cramps Verified 02/16/13 01:01 [Erythromycin Base] minocycline [Minocycline] AdvReac Intermediate Cramps Verified 02/16/13 01:00 codeine [Codeine] AdvReac Mild Cramps Verified 02/16/13 01:00 meperidine AdvReac Unknown Anxiety Verified 07/25/13 10:12 Review of Systems - Constitutional Constitutional: reports: Fatigue, Weight stable - Eyes Eyes: reports: Vision loss, Corrective lenses - Ears, Nose & Throat Ears, Nose & Throat: reports: Hearing loss, Hearing aids, Nasal congestion ( Feels sinus congestion has improved since been on Decadron as well as steroid nasal rinses. No further headache or pressure noted. Did recommend that ENT know response to current treatment plan), Dry mouth - Cardiovascular Cardiovascular: reports: Chest pain (Reports 2 separate episodes chest pain, most recent Wednesday, with radiation to the sharp in her ear and neck and jaw. Was relieved with nitro. Had not had this happen previously. But did receive relief of shortness of breath. Unclear and looking back of his have similar episodes of more minor discomfort), Exertional dyspnea, Decr. exercise tolerance - Respiratory Respiratory: reports: SOB with exertion. denies: SOB at rest - Gastrointestinal Gastrointestinal: reports: Change in bowel habits (Patient does have new in the last 2-3 weeks some increased incontinence and stool, increased looseness in consistency, most often incontinence is happening at night time.), Good appetite - Genitourinary Genitourinary: reports: Incontinence - Musculoskeletal Musculoskeletal: reports: Muscle aches, Stiffness, Limited range of motion, Muscle weakness, Transfer issues (mostly wheelchair bound; able to walk a few steps in transfers; did try PT this week with increase pain in "muscles") - Integumentary Integumentary: reports: Dryness, Hair changes (some hair thinning with Ibrance) - Neurological Neurological: reports: General weakness, Numbness (anal/sacral numbness; some right side foot/leg; sciatica sharp shooting pain improved with decadron), Memory problems (with initiation of steroids and pushing up of pain meds more difficulty with STM and tracking conversations) - Psychiatric Psychiatric: reports: Anxiety (about impending plan) - Hematologic/Lymphatic Hematologic/Lymphatic: reports: Anemia (improved) - All Other Systems All Other Systems: reports: Reviewed and negative Physical Exam - Vital Signs Temperature: 96.5 C Pulse Rate: 70 Respiratory Rate: 18 O2 Saturation: 95 (ra @ rest) Blood Pressure: 128/78 - Physical Exam General Appearance: positive: No acute distress, Lethargic Eyes Bilateral: positive: Normal inspection ENT: positive: Other (white coating; no s/s candidiasis; inst. to watch as longer extended time now on decadron) Neck: positive: Trachea midline Cardiovascular: positive: Regular rate & rhythm Respiratory: positive: Breath sounds nml Abdomen: positive: Soft, Nml bowel sounds Skin: positive: Pallor Extremities: positive: No pedal edema, Other Neurologic/Psychiatric: positive: Oriented x3, Mood/affect nml, Weakness Palliative Care - POLST Patient has POLST: Yes POLST Status: DNR, Selective Treatment Pain: Pain improved, Location (see HPI. Patient with acute pain crisis this last month, was up to 10-12 tabs of 20 mg oxycodone tabs for breakthrough pain, she now is down to 7-8. She does feel her pain is "showing as different". Her baseline management is methadone 30 mg 3 times daily, gabapentin 700 mg 3 times daily, and now dexamethasone 4 mg twice daily.) Tiredness/Fatigue: Moderate (4-6) Drowsiness/Sedation: Moderate (4-6) Nausea: None Anxiety: Moderate (4-6) (Anxious about pending treatment plan as well as multiple medical appointments interfering with her vacation she is planned with her spouse. She is somewhat resigned to this, but worried about the long-term implications of her current situation) Dyspnea: None Sleep: Variable sleep pattern (up to use bathroom; often exacerbates pain, with new incontinence problematic) Constipation: Yes, Opoid induced, Managed Performance Status: She is mostly wheelchair bound, does do standing transfers and takes few steps. This is most limited by pain. She is able to shower independently with supervision. Patient wants to maintain independent as long as possible. - Palliative Care Discussion: Time spent just processing most recent changes, is feeling somewhat overwhelmed , awaiting next step in treatment plan. Patient very reflective on journey, is causing more concerns about need for increased support with her increased dependence with her spouse. She does have a good network of support, is looking forward to some quality time and trips coming up Results - Lab Results Lab results reviewed: Yes Impression and Recommendations - Palliative Care Impression: This is a 67-year-old woman with metastatic breast cancer, with progression of disease and her bones. She will be changing treatment regimens, she does present with some functional and cognitive decline most likely attributed to her pain and medications. Awaiting outcome of radiation oncology appointment, for palliative care to further adjust pain regimen. Palliative care to continue provide support for pain and symptom management and psychosocial support Recommendations/Counseling Done: No medication changes made this visit 1. Pain of neoplastic origin. Awaiting options as far as radiation for pain management, discerned about symptoms of cord compression, will leave her on Decadron 4 mg twice daily, will work with radiation oncologist regarding titration either up or down as indicated. Patient remains on methadone 30 mg 3 times daily, gabapentin 700 mg 3 times daily, and oxycodone 20 mg tabs 1-2 for breakthrough pain. 2. Sinusitis. Patient is seen Dr. Artem Holden ENT, patient actually has received some benefit from being on the Decadron as far as headaches, swelling, and sinus pressure. Requested she follow-up with him as far as letting him know her response and current dosing on Decadron. 3. Metastatic breast cancer with progression. Patient is to be changing up to Xeloda, patient with multiple concerns regarding side effects particularly diarrhea given her limited mobility status. Will follow up regarding chemotherapy teaching, and side effect management. Did reassure there is protocols for managing side effects. 4. Fatigue. This is most likely multifactorial in origin. Patient did return to PT this week, does find this supportive. Her anemia is improving, now on steroids suspect this is helping some, she does have as needed Ritalin to use if needed. 5. Chest pain. Patient has had 2 episodes, relieved with nitro, patient does have high risk for GERD given the dexamethasone, but patient does feel it was more likely attributed to chest pressure. I requested she make an appointment and follow with Dr. Mcdermott, as well as follow appropriate private protocol if nitro does not relieve pain and calling 911 Plan to follow-up after radiation oncology visit and adjust pain medications in response to treatment plan. Time Spent: 60 minutes with greater than 50% of this done in counseling regarding pain and symptom management coordination of care will follow up with radiation oncologist requests update after visit.
== END 2018-03-10 19:06 | disposition home or self-care (01) ==
LOC: PC 19:05
PROVIDERS: ATTEND Nurse Practitioner Adult Health
DX: Z51.5 Encounter for palliative care (principal); G89.3 Neoplasm related pain (acute) (chronic); C50.912 Malignant neoplasm of unspecified site of left female breast; C79.51 Secondary malignant neoplasm of bone; J32.9 Chronic sinusitis, unspecified; R53.83 Other fatigue; R07.9 Chest pain, unspecified; H91.90 Unspecified hearing loss, unspecified ear; K59.03 Drug induced constipation; T40.2X5D Adverse effect of other opioids, subsequent encounter; Z66 Do not resuscitate
CPT/HCPCS: 99350

== ENCOUNTER 2018-04-13 15:32 | Emergency (ER) | payer OTHER ==
--- NOTE | 2018-04-13 17:44 | ED Physician Documentation ---
PD HPI URI - Stated complaint Stated Complaint: FEVER/CHEMO/COUGH/EDEMA - Chief complaint Chief Complaint: General - History obtained from History obtained from: Patient - History of Present Illness Timing - onset: How many days ago (few days of feeling ill, weak, chough productive of discolored sputum, and now today had fever. Concerned due to steroids and chemo and came in for eval per direction of providers.) Timing duration: Days (few) Timing details: Gradual onset, Still present Associated symptoms: Fever, Chills, Productive cough, Bilateral edema, Other ( muscle aches, particularly legs). No: Nasal congestion, Swollen nodes, Unilateral edema Contributing factors: Immunocompromised (on steroids longer term and chemo started recently, with low ANC in the past with prior chemos.). No: Sick contact Worsened by: Activity Similar symptoms before: Diagnosis (has had cardiomyopathy due to [place] with heart cath and one stent at tortuous spot in circumflex, oothers were open enough.) Recently seen: Clinic (started new chemo last week) Review of Systems Constitutional: reports: Fever, Chills, Myalgias Nose: reports: Congestion, Sinus pressure / pain. denies: Rhinorrhea / runny nose Throat: denies: Sore throat Cardiac: denies: Chest pain / pressure, Palpitations Respiratory: reports: Dyspnea, Cough, Wheezing GI: reports: Nausea. denies: Abdominal Pain, Vomiting, Diarrhea, Bloody / black stool Skin: denies: Rash, Lesions Musculoskeletal: reports: Extremity pain (muscle aches) Neurologic: reports: Generalized weakness. denies: Focal weakness, Numbness, Near syncope Endocrine: reports: Easy bruising / bleeding PD PAST MEDICAL HISTORY - Past Medical History Cardiovascular: Congestive heart failure (due to cardiomyopathy ([place] per patient), with initial EF 25% at Dx, and recent ECHO showing EF 60% on meds. Sees Dr. Figueroa?) ), Hypertension Respiratory: None Endocrine/Autoimmune: None, HyPOthyroidism GI: Diverticulitis : Chronic bladder infection, Kidney stones HEENT: Chronic hearing loss Psych: Depression, Anxiety Musculoskeletal: Osteoarthritis Derm: Eczema - Past Surgical History Past Surgical History: Yes General: Bowel surgery, Colonoscopy Ortho: Knee replacement - Present Medications Home Medications: Ambulatory Orders Medication Instructions Recorded Confirmed Aspirin 81 mg PO DAILY 02/16/13 03/10/18 Polyethylene Glycol 3350 [Miralax] 0.66 cap PO DAILY PRN 03/26/15 03/10/18 Letrozole 2.5 mg PO DAILY 10/07/15 03/01/18 Ondansetron HCl [Zofran] 4 mg PO Q6HR PRN 11/15/15 03/10/18 Omeprazole [PriLOSEC] 40 mg PO DAILY 12/17/15 03/10/18 Methadone 30 mg PO TID 06/30/16 03/01/18 Atorvastatin [Lipitor] 40 mg PO DAILY 03/30/17 03/10/18 Carvedilol 3.125 mg PO BID 03/30/17 03/10/18 Nitroglycerin 0.4 mg SL PRN PRN 04/27/17 03/10/18 Biotin 500 mcg PO TID 05/06/17 03/10/18 Best Cit/Mag/D3/Zn/Master Fisher/Yahir/Bor 2 tab PO BID 05/06/17 03/10/18 [Citracal-Vit D + Magnesium Tab] Cholecalciferol [Vitamin D3] 5,000 unit PO DAILY 05/06/17 03/10/18 Fexofenadine HCl 180 mg PO DAILY 05/06/17 03/01/18 Guaifenesin [Mucinex] 600 mg PO BID PRN 05/06/17 03/01/18 Oxycodone HCl 20 - 40 mg PO Q3HR PRN 05/06/17 03/10/18 Sennosides [Senna Lax] 2 tab PO BID PRN 05/06/17 03/10/18 Gabapentin 700 mg PO TID 06/29/17 03/01/18 Escitalopram [Lexapro] 20 mg PO DAILY 10/19/17 03/01/18 Palbociclib [Ibrance] 75 mg PO .DAILY 3 WKS/1 OFF 11/04/17 03/10/18 Calcium Carbonate [Tums (Calcium 500 mg PO PRN PRN 12/07/17 03/10/18 Carbonate 500mg)] Fluticasone [Flonase] 1 spray INH DAILY 12/07/17 03/01/18 L.acid/L.casei/B.bif/B.dieter/Fos 1 cap PO BID 12/07/17 03/01/18 [Probiotic Blend Capsule] D-Manose 500 mg PO BID 01/04/18 03/10/18 Losartan Potassium 12.5 mg PO DAILY 01/28/18 03/01/18 Methylphenidate [Ritalin] 2.5 - 5 mg PO .1-2 X DAILY PRN MDD 02/01/18 03/10/18 lethargy Dexamethasone 4 mg PO BID 03/01/18 03/10/18 Albuterol Sulf [Ventolin Hfa 1 - 2 puffs INH Q4HR PRN #1 inhaler 04/13/18 Inhaler] Benzonatate [Tessalon] 100 mg PO TID PRN #25 capsule 04/13/18 Capecitabine [Xeloda] 04/13/18 Cephalexin [Keflex] 500 mg PO QID #24 capsule 04/13/18 Isosorbide Dinitrate [Isosorbide 04/13/18 Dinitrate ER] metFORMIN [Glucophage] 04/13/18 - Allergies Allergies/Adverse Reactions: Allergies Allergy/AdvReac Type Severity Reaction Status Date / Time oxaprozin [From Daypro] Allergy Intermediate Rash Verified 03/30/13 10:21 sulfamethoxazole Allergy Intermediate Rash Verified 02/16/13 00:35 [From Septra] erythromycin base AdvReac Intermediate Cramps Verified 02/16/13 01:01 [Erythromycin Base] minocycline [Minocycline] AdvReac Intermediate Cramps Verified 02/16/13 01:00 codeine [Codeine] AdvReac Mild Cramps Verified 02/16/13 01:00 meperidine AdvReac Unknown Anxiety Verified 07/25/13 10:12 - Living Situation Living Situation: reports: With family (daughter) Living Arrangement: reports: At home - Social History Does the pt smoke?: No Smoking Status: Never smoker Does the pt drink ETOH?: Yes Does the pt have substance abuse?: No - Family History Family history: reports: Non contributory - Immunizations Immunizations are current?: Yes - POLST Patient has POLST: Yes PD ED PE NORMAL - Vitals Vital signs reviewed: Yes - General General: Alert and oriented X 3, Well developed/nourished - HEENT HEENT: Pharynx benign - Neck Neck: Supple, no meningeal sign, No adenopathy - Cardiac Cardiac: RRR, No murmur, No rub - Respiratory Respiratory: No respiratory distress. No: Clear bilaterally (some wheezing bilaterally. No coarse sounds. No fine crackles. ) - Abdomen Abdomen: Soft, Non tender - Female Female : Deferred - Rectal Rectal: Deferred - Back Back: No CVA TTP - Derm Derm: Normal color, Warm and dry - Extremities Extremities: No calf tenderness / cord, Other (1+ edema in both legs) - Neuro Neuro: Alert and oriented X 3, No motor deficit, Normal speech Results - Vitals Vitals: Vital Signs - 24 hr 04/13/18 04/13/18 04/13/18 15:46 17:47 18:15 Temperature 37.1 C 37.2 C Heart Rate 97 90 Respiratory 16 18 Rate Blood Pressure 127/67 118/70 O2 Saturation 92 92 87 L 04/13/18 04/13/18 04/13/18 18:17 19:01 19:43 Temperature 36.9 C Heart Rate 83 82 Respiratory 12 18 Rate Blood Pressure 108/57 L O2 Saturation 100 93 Oxygen O2 Source Room air - Labs Labs: Laboratory Tests 04/13/18 04/13/18 04/13/18 17:19 18:24 18:24 WBC 3.5 L RBC 2.52 L Hgb 8.7 L Hct 25.6 L MCV 101.8 H MCH 34.5 H MCHC 33.9 RDW 17.8 H Plt Count 268 MPV 6.4 L Neut # (Auto) Not Reportable Lymph # (Auto) Not Reportable [place] # (Auto) Not Reportable Eos # (Auto) Not Reportable Baso # (Auto) Not Reportable Absolute Nucleated RBC Not Reportable Total Counted 100 Band Neuts % (Manual) 12 H Abnorm Lymph % (Manual) 0 Metamyelocytes % 1 H Myelocytes % 1 H Nucleated RBC % Not Reportable Neutrophils # (Manual) 2.7 Lymphocytes # (Manual) 0.5 L Monocytes # (Manual) 0.2 Eosinophils # (Manual) 0.0 Basophils # (Manual) 0.0 Nucleated RBCs 1 Differential Comment MANUAL DIFFERENTIAL Manual Slide Review Indicated WBC Morphology NORMAL APPEARANCE Platelet Estimate NORMAL (130-450,000) Platelet Morphology NORMAL APPEARANCE RBC Morph Micro Appear 1+ MACROCYTOSIS Sodium 133 L Potassium 4.2 Chloride 93 L Carbon Dioxide 33 H Anion Gap 7.0 BUN 27 H Creatinine 1.2 H Estimated GFR (MDRD) 45 L Glucose 100 Lactic Acid Calcium 9.4 Magnesium 2.0 Total Bilirubin 0.7 AST 33 ALT 26 Alkaline Phosphatase 51 B-Natriuretic Peptide Total Protein 5.9 L Albumin 2.6 L Globulin 3.3 Albumin/Globulin Ratio 0.8 L Lipase 18 L Urine Color YELLOW Urine Clarity CLEAR Urine pH 6.0 Ur Specific Bruno 1.020 Urine Protein NEGATIVE Urine Glucose (UA) NEGATIVE Urine Ketones NEGATIVE Urine Occult Blood NEGATIVE Urine Nitrite NEGATIVE Urine Bilirubin NEGATIVE Urine Urobilinogen 0.2 (NORMAL) Ur Leukocyte Esterase NEGATIVE Ur Microscopic Review NOT INDICATED Urine Culture Comments NOT INDICATED 04/13/18 04/13/18 18:24 18:24 WBC RBC Hgb Hct MCV MCH MCHC RDW Plt Count MPV Neut # (Auto) Lymph # (Auto) [place] # (Auto) Eos # (Auto) Baso # (Auto) Absolute Nucleated RBC Total Counted Band Neuts % (Manual) Abnorm Lymph % (Manual) Metamyelocytes % Myelocytes % Nucleated RBC % Neutrophils # (Manual) Lymphocytes # (Manual) Monocytes # (Manual) Eosinophils # (Manual) Basophils # (Manual) Nucleated RBCs Differential Comment Manual Slide Review WBC Morphology Platelet Estimate Platelet Morphology RBC Morph Micro Appear Sodium Potassium Chloride Carbon Dioxide Anion Gap BUN Creatinine Estimated GFR (MDRD) Glucose Lactic Acid 0.9 Calcium Magnesium Total Bilirubin AST ALT Alkaline Phosphatase B-Natriuretic Peptide 60 Total Protein Albumin Globulin Albumin/Globulin Ratio Lipase Urine Color Urine Clarity Urine pH Ur Specific Bruno Urine Protein Urine Glucose (UA) Urine Ketones Urine Occult Blood Urine Nitrite Urine Bilirubin Urine Urobilinogen Ur Leukocyte Esterase Ur Microscopic Review Urine Culture Comments - Rads (name of study) chest xray Radiology: Prelim report reviewed (no infiltrates, no CHF. ), EMP read contemporaneously PD MEDICAL DECISION MAKING - ED course Complexity details: reviewed results (CXR is clear and does not show pneumonia nor CHF. Consider bronchtiis with current symptoms. If not improved, could also consider ECHO, but her latest one had been improved and showed EF 60%. ), re- evaluated patient (She did complain of muscle aches lately in the legs, and I suggested stopping the statin med she is on for a month (elevated cholesterol is not such an issue for her in the scheme of things, and she agrees). ), considered differential, d/w patient, d/w family (her daughter who is a nurse and does primary caregiving. ) - Sepsis Event Vital Signs: Vital Signs - 24 hr 04/13/18 04/13/18 04/13/18 15:46 17:47 18:15 Temperature 37.1 C 37.2 C Heart Rate 97 90 Respiratory 16 18 Rate Blood Pressure 127/67 118/70 O2 Saturation 92 92 87 L 04/13/18 04/13/18 04/13/18 18:17 19:01 19:43 Temperature 36.9 C Heart Rate 83 82 Respiratory 12 18 Rate Blood Pressure 108/57 L O2 Saturation 100 93 Oxygen O2 Source Room air Departure - Departure Disposition: 01 Home, Self Care Clinical Impression: Immunocompromised due to corticosteroids Bronchitis, acute Qualifiers: Bronchitis organism: unspecified organism Qualified Code(s): J20.9 - Acute bronchitis, unspecified Dyspnea Qualifiers: Dyspnea type: shortness of breath Qualified Code(s): R06.02 - Shortness of breath Condition: Stable Record reviewed to determine appropriate education?: Yes Instructions: ED Upper Resp Infec Abx Tx Follow-Up: Noy Ortiz PA [Primary Care Provider] - Prescriptions: Albuterol Sulf [Ventolin Hfa Inhaler] 1 - 2 puffs INH Q4HR PRN #1 inhaler PRN Reason: Shortness Of Air/Wheezing Benzonatate [Tessalon] 100 mg PO TID PRN #25 capsule PRN Reason: Cough Cephalexin [Keflex] 500 mg PO QID #24 capsule Comments: Your chest x-ray is clear and does not show any signs of pneumonia. However it is concerning that you may have bronchitis especially with your immune compromise. Your ANC is 560 so is adequate marginally. Continue current medications. Add cephalexin antibiotic for infection. Use albuterol inhaler 2 puffs 4 times a day for the next 7-10 days to help with breathing and cough. Tessalon if needed for cough. Recheck with your primary care or oncologist in the next couple of days. Return sooner if worsening. Stay well-hydrated. Your blood tests do not indicate any signs of sepsis nor heart failure. Discharge Date/Time: 04/13/18 20:08
[2018-04-13] MEDS ORDERED: KETOROLAC 60 MG/2 ML VIAL IVP STA (18:07)
[2018-04-13] MEDS ORDERED: ONDANSETRON 4 MG/2 ML VIAL IVP STA (18:07)
[2018-04-13] MEDS ORDERED: SODIUM CHLORIDE 0.9% 500 ML IV ONE (18:07)
[2018-04-13] MEDS ORDERED: ALBUTEROL NEB 2.5 MG/3 ML INH STA (18:08)
[2018-04-13 18:35] LABS: BASOPHILS % (AUTO) 1.7 %; EOSINOPHILS % (AUTO) 3.7 %; HGB - HEMOGLOBIN 8.7 g/dL (12.0-16.0); LYMPHOCYTES % (AUTO) 13.5 %; MEAN CORPUSCULAR HEMOGLOBIN 34.5 pg (27.0-31.0); MEAN CORPUSCULAR HGB CONC 33.9 g/dL (32.0-36.0); MEAN CORPUSCULAR VOLUME 101.8 fL (81.0-99.0); MEAN PLATELET VOLUME 6.4 fL (7.9-10.8); MONOCYTES % (AUTO) 6.5 %; NEUTROPHILS % (AUTO) 74.6 %; PLT - PLATELET COUNT 268 10^3/uL (130-450); RED BLOOD COUNT 2.52 10^6/uL (4.20-5.40); RED CELL DISTRIBUTION WIDTH 17.8 % (12.0-15.0); WHITE BLOOD COUNT 3.5 x10^3/uL (4.8-10.8)
[2018-04-13 18:40] LABS: ABNORMAL LYMPHS % (MANUAL) 0 %
[2018-04-13 18:49] LABS: ALBUMIN 2.6 g/dL (3.2-5.5); ALBUMIN/GLOBULIN RATIO 0.8 (1.0-2.2); BILIRUBIN,TOTAL 0.7 mg/dL (0.2-1.0); CALCIUM 9.4 mg/dL (8.5-10.3); CREATININE 1.2 mg/dL (0.4-1.0); TOTAL PROTEIN 5.9 g/dL (6.7-8.2)
[2018-04-13 18:56] LABS: BAND NEUTROPHILS % (MANUAL) 12 %; LYMPHOCYTES # (MANUAL) 0.5 10^3/uL (1.5-3.5); LYMPHOCYTES % (MANUAL) 15 %; METAMYELOCYTES % (MANUAL) 1 %; MONOCYTES # (MANUAL) 0.2 10^3/uL (0.0-1.0); MYELOCYTES % (MANUAL) 1 %; NEUTROPHILS # (MANUAL) 2.7 10^3/uL (1.5-6.6); NEUTROPHILS % (MANUAL) 66 %
[2018-04-13 18:57] LABS: BILIRUBIN,URINE NEGATIVE (NEGATIVE); GLUCOSE, URINE (UA) NEGATIVE (NEGATIVE); KETONES,URINE (UA) NEGATIVE (NEGATIVE); LEUKOCYTE ESTERASE, URINE NEGATIVE (NEGATIVE); NITRITE,URINE NEGATIVE (NEGATIVE); OCCULT BLOOD,URINE NEGATIVE (NEGATIVE); PROTEIN,URINE NEGATIVE (NEGATIVE); UROBILINOGEN,URINE 0.2 (NORMAL) E.U./dL (NORMAL)
[2018-04-13 18:57] LABS: DIFFERENTIAL COMMENT MANUAL DIFFERENTIAL; PLATELET ESTIMATE, MANUAL NORMAL (130-450,000) (NORMAL); PLATELET MORPHOLOGY NORMAL APPEARANCE (NORMAL); RBC MORPHOLOGY (MULTIPLE) 1+ MACROCYTOSIS (NORMAL)
[2018-04-13 19:00] LABS: CLARITY,URINE CLEAR (CLEAR)
--- NOTE | 2018-04-13 19:13 | XRAY Report ---
Procedure Date: 04/13/2018 Accession Number: [id number] / [id number] Procedure: XR - Chest 2 View X-Ray CPT Code: 02430 FULL RESULT: EXAM: CHEST RADIOGRAPHY EXAM DATE: 04/13/2018 06:43 PM. CLINICAL HISTORY: Chest pain, left sided. Fever. COMPARISON: CHEST 2 VIEW PA/LAT 02/17/2013. TECHNIQUE: 2 views. FINDINGS: Lungs/Pleura: No focal opacities evident. No pleural effusion. No pneumothorax. Normal volumes. Mediastinum: Heart and mediastinal contours are unremarkable. Other: No compression fractures. IMPRESSION: Normal 2-view chest radiography. [facility]
[2018-04-13 19:44] VITALS: BP 108/57
[2018-04-13] MEDS ORDERED: cephALEXin 250 MG CAPSULE PO STA (19:57)
== END 2018-04-13 20:08 | disposition home or self-care (01) ==
LOC: ED 15:32
DX: D84.9 Immunodeficiency, unspecified (principal); T38.0X5A Adverse effect of glucocorticoids and synthetic analogues, initial encounter; J20.9 Acute bronchitis, unspecified; R06.02 Shortness of breath; E03.9 Hypothyroidism, unspecified; Z96.659 Presence of unspecified artificial knee joint; Z92.21 Personal history of antineoplastic chemotherapy
CPT/HCPCS: 36415; 71046; 80053; 81003; 83605; 83690; 83735; 83880; 85025; 87040; 94640; 96361; 96374; 96375; 99283; 99284; A9270; 81001; 87086

== ENCOUNTER 2018-04-14 10:52 | Outpatient (CLI) | payer OTHER | END 2018-04-14 10:53 | disposition critical access hospital (66) | LOC: EMS 10:52 | PROVIDERS: ATTEND Surgery | DX: R46.4 Slowness and poor responsiveness (principal); R50.9 Fever, unspecified; R51 Headache; R06.00 Dyspnea, unspecified; R11.0 Nausea | CPT/HCPCS: A0425; A0427 ==

== ENCOUNTER 2018-04-14 11:34 | Inpatient (IN) | payer OTHER, MEDICARE ==
[2018-04-14 12:08] LABS: BILIRUBIN,URINE NEGATIVE (NEGATIVE); GLUCOSE, URINE (UA) NEGATIVE (NEGATIVE); KETONES,URINE (UA) NEGATIVE (NEGATIVE); LEUKOCYTE ESTERASE, URINE NEGATIVE (NEGATIVE); NITRITE,URINE NEGATIVE (NEGATIVE); OCCULT BLOOD,URINE NEGATIVE (NEGATIVE); PROTEIN,URINE NEGATIVE (NEGATIVE); UROBILINOGEN,URINE 0.2 (NORMAL) E.U./dL (NORMAL)
[2018-04-14] MEDS ORDERED: VANCOMYCIN INJ 2 GM in SODIUM CHLORIDE 0.9% 500 ML IV STA (12:13)
[2018-04-14] MEDS ORDERED: CEFEPIME 2 GM in SODIUM CHLORIDE 0.9% MINIBAG 100 ML IV STA (12:13)
[2018-04-14] MEDS ORDERED: SODIUM CHLORIDE 0.9% 1,000 ML IV ONE (12:14)
[2018-04-14 12:16] LABS: CLARITY,URINE CLEAR (CLEAR)
--- NOTE | 2018-04-14 12:18 | ED Physician Documentation ---
History of Present Illness - Stated complaint Stated Complaint: LETHARGIC, FEVER - Chief complaint Chief Complaint: Fever - History obtained from History obtained from: Patient, Family (PC Argelia, her spouse) - History of Present Illness Timing: Other (This is a 67-year-old woman who has metastatic breast cancer undergoing treatment with metastases to bone and spine who has had sinus troubles all spring, better after steroids. Now she has had about 3 days of productive cough with white to buck sputum and was seen yesterday. Her chest x- ray was clear and her labs were basically unremarkable with chronic leukopenia and slightly worse than normal anemia, although she did have a 12% bandemia. Her chest x-ray was clear and she was discharged with Keflex. She got worse overnight with continued fever and lethargy, basically dysfunctional at home, her spouse is unable to care for her. She is noted to have low blood pressure and tachycardia here.) Review of Systems Ten Systems: 10 systems reviewed and negative Constitutional: reports: Fever, Chills, Fatigue Nose: denies: Rhinorrhea / runny nose, Congestion Throat: denies: Sore throat Respiratory: reports: Cough GI: denies: Abdominal Pain : denies: Dysuria, Frequency PD PAST MEDICAL HISTORY - Past Medical History Cardiovascular: Congestive heart failure, Hypertension Respiratory: None Endocrine/Autoimmune: None, HyPOthyroidism GI: Diverticulitis : Chronic bladder infection, Kidney stones HEENT: Chronic hearing loss Psych: Depression, Anxiety Musculoskeletal: Osteoarthritis Derm: Eczema - Past Surgical History Past Surgical History: Yes General: Bowel surgery, Colonoscopy Ortho: Knee replacement - Present Medications Home Medications: Ambulatory Orders Medication Instructions Recorded Confirmed Aspirin 81 mg PO DAILY 02/16/13 03/10/18 Polyethylene Glycol 3350 [Miralax] 0.66 cap PO DAILY PRN 03/26/15 03/10/18 Letrozole 2.5 mg PO DAILY 10/07/15 03/01/18 Ondansetron HCl [Zofran] 4 mg PO Q6HR PRN 11/15/15 03/10/18 Omeprazole [PriLOSEC] 40 mg PO DAILY 12/17/15 03/10/18 Methadone 30 mg PO TID 06/30/16 03/01/18 Atorvastatin [Lipitor] 40 mg PO DAILY 03/30/17 03/10/18 Carvedilol 3.125 mg PO BID 03/30/17 03/10/18 Nitroglycerin 0.4 mg SL PRN PRN 04/27/17 03/10/18 Biotin 500 mcg PO TID 05/06/17 03/10/18 Best Cit/Mag/D3/Zn/Assistant Bookkeeper/Yahir/Bor 2 tab PO BID 05/06/17 03/10/18 [Citracal-Vit D + Magnesium Tab] Cholecalciferol [Vitamin D3] 5,000 unit PO DAILY 05/06/17 03/10/18 Fexofenadine HCl 180 mg PO DAILY 05/06/17 03/01/18 Guaifenesin [Mucinex] 600 mg PO BID PRN 05/06/17 03/01/18 Oxycodone HCl 20 - 40 mg PO Q3HR PRN 05/06/17 03/10/18 Sennosides [Senna Lax] 2 tab PO BID PRN 05/06/17 03/10/18 Gabapentin 700 mg PO TID 06/29/17 03/01/18 Escitalopram [Lexapro] 20 mg PO DAILY 10/19/17 03/01/18 Palbociclib [Ibrance] 75 mg PO .DAILY 3 WKS/1 OFF 11/04/17 03/10/18 Calcium Carbonate [Tums (Calcium 500 mg PO PRN PRN 12/07/17 03/10/18 Carbonate 500mg)] Fluticasone [Flonase] 1 spray INH DAILY 12/07/17 03/01/18 L.acid/L.casei/B.bif/B.dieter/Fos 1 cap PO BID 12/07/17 03/01/18 [Probiotic Blend Capsule] D-[place] 500 mg PO BID 01/04/18 03/10/18 Losartan Potassium 12.5 mg PO DAILY 01/28/18 03/01/18 Methylphenidate [Ritalin] 2.5 - 5 mg PO .1-2 X DAILY PRN MDD 02/01/18 03/10/18 lethargy Dexamethasone 4 mg PO BID 03/01/18 03/10/18 Albuterol Sulf [Ventolin Hfa 1 - 2 puffs INH Q4HR PRN #1 inhaler 04/13/18 Inhaler] Benzonatate [Tessalon] 100 mg PO TID PRN #25 capsule 04/13/18 Capecitabine [Xeloda] 04/13/18 Cephalexin [Keflex] 500 mg PO QID #24 capsule 04/13/18 Isosorbide Dinitrate [Isosorbide 04/13/18 Dinitrate ER] metFORMIN [Glucophage] 04/13/18 - Allergies Allergies/Adverse Reactions: Allergies Allergy/AdvReac Type Severity Reaction Status Date / Time oxaprozin [From Daypro] Allergy Intermediate Rash Verified 04/14/18 11:42 sulfamethoxazole Allergy Intermediate Rash Verified 04/14/18 11:42 [From Septra] erythromycin base AdvReac Intermediate Cramps Verified 04/14/18 11:42 [Erythromycin Base] minocycline [Minocycline] AdvReac Intermediate Cramps Verified 04/14/18 11:42 codeine [Codeine] AdvReac Mild Cramps Verified 04/14/18 11:42 meperidine AdvReac Unknown Anxiety Verified 04/14/18 11:42 - Social History Does the pt smoke?: No Smoking Status: Never smoker Does the pt drink ETOH?: Yes Does the pt have substance abuse?: No - Immunizations Immunizations are current?: Yes - POLST Patient has POLST: Yes PD ED PE NORMAL - Vitals Vital signs reviewed: Yes (hypotensive, tachycardic) - General General: Alert and oriented X 3 (but nodding off. Also sweaty) - HEENT HEENT: PERRL, EOMI, Pharynx benign - Neck Neck: Supple, no meningeal sign, No bony TTP - Cardiac Cardiac: RRR, No murmur - Respiratory Respiratory: No respiratory distress, Clear bilaterally - Abdomen Abdomen: Normal bowel sounds, Soft, Non tender - Derm Derm: Normal color, Warm and dry - Extremities Extremities: No edema, No calf tenderness / cord - Neuro Neuro: Alert and oriented X 3, Normal speech - Psych Psych: Normal mood, Normal affect Results - Vitals Vitals: Vital Signs - 24 hr 04/14/18 04/14/18 04/14/18 11:37 12:37 13:16 Temperature 37.4 C 36.9 C Heart Rate 124 H 92 85 Respiratory 20 10 L 13 Rate Blood Pressure 99/61 85/55 L 84/48 L O2 Saturation 94 98 98 04/14/18 14:24 Temperature Heart Rate 79 Respiratory 10 L Rate Blood Pressure 108/65 O2 Saturation 100 Oxygen O2 Source Nasal cannula - Labs Labs: Laboratory Tests 04/14/18 04/14/18 04/14/18 11:50 12:26 12:26 WBC 3.7 L RBC 2.35 L Hgb 7.8 L Hct 23.9 L MCV 101.5 H MCH 33.2 H MCHC 32.7 RDW 17.4 H Plt Count 216 MPV 6.1 L Neut # (Auto) Not Reportable Lymph # (Auto) Not Reportable [place] # (Auto) Not Reportable Eos # (Auto) Not Reportable Baso # (Auto) Not Reportable Absolute Nucleated RBC Not Reportable Total Counted 100 Band Neuts % (Manual) 7 Abnorm Lymph % (Manual) 0 Myelocytes % 1 H Nucleated RBC % Not Reportable Neutrophils # (Manual) 3.0 Lymphocytes # (Manual) 0.2 L Monocytes # (Manual) 0.2 Eosinophils # (Manual) 0.2 Basophils # (Manual) 0.0 Nucleated RBCs 3 Differential Comment MANUAL DIFFERENTIAL Manual Slide Review Indicated Platelet Morphology RARE GIANT PLATELETS RBC Morph Micro Appear 1+ MACROCYTOSIS PT INR APTT Sodium Potassium Chloride Carbon Dioxide Anion Gap BUN Creatinine Estimated GFR (MDRD) Glucose Lactic Acid 1.1 Calcium Total Bilirubin AST ALT Alkaline Phosphatase Total Protein Albumin Globulin Albumin/Globulin Ratio Lipase Urine Color YELLOW Urine Clarity CLEAR Urine pH 6.0 Ur Specific [place] 1.025 Urine Protein NEGATIVE Urine Glucose (UA) NEGATIVE Urine Ketones NEGATIVE Urine Occult Blood NEGATIVE Urine Nitrite NEGATIVE Urine Bilirubin NEGATIVE Urine Urobilinogen 0.2 (NORMAL) Ur Leukocyte Esterase NEGATIVE Ur Microscopic Review NOT INDICATED Urine Culture Comments NOT INDICATED 04/14/18 04/14/18 12:26 12:26 WBC RBC Hgb Hct MCV MCH MCHC RDW Plt Count MPV Neut # (Auto) Lymph # (Auto) [place] # (Auto) Eos # (Auto) Baso # (Auto) Absolute Nucleated RBC Total Counted Band Neuts % (Manual) Abnorm Lymph % (Manual) Myelocytes % Nucleated RBC % Neutrophils # (Manual) Lymphocytes # (Manual) Monocytes # (Manual) Eosinophils # (Manual) Basophils # (Manual) Nucleated RBCs Differential Comment Manual Slide Review Platelet Morphology RBC Morph Micro Appear PT 12.0 INR 1.1 APTT 25.2 Sodium 135 Potassium 3.8 Chloride 100 L Carbon Dioxide 29 Anion Gap 6.0 BUN 33 H Creatinine 1.3 H Estimated GFR (MDRD) 41 L Glucose 132 H Lactic Acid Calcium 8.1 L Total Bilirubin 0.4 AST 31 ALT 23 Alkaline Phosphatase 61 Total Protein 5.0 L Albumin 2.2 L Globulin 2.8 Albumin/Globulin Ratio 0.8 L Lipase 19 L Urine Color Urine Clarity Urine pH Ur Specific [place] Urine Protein Urine Glucose (UA) Urine Ketones Urine Occult Blood Urine Nitrite Urine Bilirubin Urine Urobilinogen Ur Leukocyte Esterase Ur Microscopic Review Urine Culture Comments - Rads (name of study) 1v chest Radiology: EMP read contemporaneously (NAD) 1v chest p line Radiology: EMP read contemporaneously (Right IJ catheter at the superior cavoatrial junction without pneumothorax, mild patchy opacities in both lungs.) Procedures - Central Line Central Line Preparation: Consent Obtained (from spouse, written), Time out completed, Ultrasound used, Sterile prep and drape Central line location: Right IJ Central line type: Triple lumen Central line aftercare: Chlorhexidine disc placed, Secured, Placement confirmed , No complications PD MEDICAL DECISION MAKING - ED course ED course: 67-year-old woman presents with cough and fevers, presumed sepsis, persistently low blood pressure here despite 4 L of Crystalloid so added on pressors and hydrocortisone and a central line was placed. She was given cefepime and vancomycin after blood cultures. Right after this placement of the central line though her blood pressure kind of came up a bit so levofed was held. Called to Dr. Leiva for admission at 2:30 PM. - Critical Care Time(min): 45 Time Includes: Direct patient care, Review records, Reassess patient, Document care, Coordinate care, Medical consult, Family consult for tx dec Procedures included in critical care time: Peripheral IV Procedures excluded from critical care time: Central IV - Sepsis Event Vital Signs: Vital Signs - 24 hr 04/14/18 04/14/18 04/14/18 11:37 12:37 13:16 Temperature 37.4 C 36.9 C Heart Rate 124 H 92 85 Respiratory 20 10 L 13 Rate Blood Pressure 99/61 85/55 L 84/48 L O2 Saturation 94 98 98 04/14/18 14:24 Temperature Heart Rate 79 Respiratory 10 L Rate Blood Pressure 108/65 O2 Saturation 100 Oxygen O2 Source Nasal cannula Departure - Departure Disposition: 67 [facility] DC/Xfer Clinical Impression: Septic shock Condition: Critical
[2018-04-14] MEDS ORDERED: LACTATED RINGERS 3,000 ML IV STA (12:44)
[2018-04-14 12:53] LABS: HGB - HEMOGLOBIN 7.8 g/dL (12.0-16.0); LYMPHOCYTES % (AUTO) 9.2 %; MEAN CORPUSCULAR HEMOGLOBIN 33.2 pg (27.0-31.0); MEAN CORPUSCULAR HGB CONC 32.7 g/dL (32.0-36.0); MEAN CORPUSCULAR VOLUME 101.5 fL (81.0-99.0); MEAN PLATELET VOLUME 6.1 fL (7.9-10.8); NEUTROPHILS % (AUTO) 79.8 %; PLT - PLATELET COUNT 216 10^3/uL (130-450); RED BLOOD COUNT 2.35 10^6/uL (4.20-5.40); RED CELL DISTRIBUTION WIDTH 17.4 % (12.0-15.0); WHITE BLOOD COUNT 3.7 x10^3/uL (4.8-10.8)
[2018-04-14 12:55] LABS: ABNORMAL LYMPHS % (MANUAL) 0 %
[2018-04-14 12:59] LABS: ALBUMIN 2.2 g/dL (3.2-5.5); ALBUMIN/GLOBULIN RATIO 0.8 (1.0-2.2); BILIRUBIN,TOTAL 0.4 mg/dL (0.2-1.0); CALCIUM 8.1 mg/dL (8.5-10.3); CREATININE 1.3 mg/dL (0.4-1.0)
[2018-04-14 13:17] LABS: BAND NEUTROPHILS % (MANUAL) 7 %; BASOPHILS % (MANUAL) 1 %; EOSINOPHILS # (MANUAL) 0.2 10^3/uL (0-0.7); LYMPHOCYTES # (MANUAL) 0.2 10^3/uL (1.5-3.5); LYMPHOCYTES % (MANUAL) 5 %; MONOCYTES # (MANUAL) 0.2 10^3/uL (0.0-1.0); MYELOCYTES % (MANUAL) 1 %; NEUTROPHILS % (MANUAL) 75 %
[2018-04-14 13:18] LABS: PLATELET MORPHOLOGY RARE GIANT PLATELETS (NORMAL)
--- NOTE | 2018-04-14 13:18 | CT Report ---
Procedure Date: 04/14/2018 Accession Number: [id number] / [id number] Procedure: CT - Head W/O CPT Code: FULL RESULT: EXAM: CT HEAD EXAM DATE: 04/14/2018 12:58 PM. CLINICAL HISTORY: Lethargy, headache. COMPARISON: CT sinuses 02/05/2018. TECHNIQUE: Multiaxial CT images were obtained from the foramen magnum to the vertex. Reformats: Coronal. IV contrast: None. In accordance with CT protocol optimization, one or more of the following dose reduction techniques were utilized for this exam: automated exposure control, adjustment of mA and/or KV based on patient size, or use of iterative reconstructive technique. FINDINGS: Parenchyma: No intraparenchymal hemorrhage. No evidence of mass, midline shift, or CT findings of infarction. Whittaker-white differentiation is distinct. Extraaxial Spaces: Normal for age. No subdural or epidural collections identified. Ventricles: Normal in size and position. Sinuses and Orbits: Imaged paranasal sinuses, orbits, and mastoids show no significant abnormality. Bones: No evidence of fracture or calvarial defect. Other: None. IMPRESSION: Normal head CT. No intracranial hemorrhage, mass effect, or other acute abnormality. RADIA
[2018-04-14 13:19] LABS: DIFFERENTIAL COMMENT MANUAL DIFFERENTIAL
--- NOTE | 2018-04-14 13:20 | XRAY Report ---
Procedure Date: 04/14/2018 Accession Number: [id number] / [id number] Procedure: XR - Chest 1 View X-Ray CPT Code: 31147 FULL RESULT: EXAM: CHEST RADIOGRAPHY EXAM DATE: 04/14/2018 01:07 PM. CLINICAL HISTORY: Cough fever. COMPARISON: 04/13/2018. TECHNIQUE: 1 view. FINDINGS: Lungs/Pleura: Lung volumes appear normal. No consolidative process. No pulmonary edema or pneumothorax. Mediastinum: Within exam limitations, the cardiomediastinal contour is normal. Other: None. IMPRESSION: No developing focal pneumonia. RADIA
[2018-04-14] MEDS ORDERED: fentaNYL 100 MCG/2 ML VIAL IVP STA (13:36)
[2018-04-14] MEDS ORDERED: HYDROCORTISONE SUCCINATE 100 MG/2 ML VIAL IVP STA (13:38)
[2018-04-14 14:35] LABS: INR 1.1 (0.8-1.2)
--- NOTE | 2018-04-14 14:41 | XRAY Report ---
Procedure Date: 04/14/2018 Accession Number: [id number] / [id number] Procedure: XR - Chest for Line Placement CPT Code: FULL RESULT: EXAM: CHEST RADIOGRAPHY EXAM DATE: 04/14/2018 02:16 PM. CLINICAL HISTORY: Status post line placement. COMPARISON: 1257 hrs. Today. TECHNIQUE: 1 view. FINDINGS: Lungs/Pleura: Mild patchy opacities throughout both lungs. No peripheral interstitial abnormality. No pneumothorax or gross pleural fluid. Mediastinum: Within exam limitations, the cardiomediastinal contour is normal. Right IJ catheter with its tip at the superior cavoatrial junction. Other: None. IMPRESSION: 1. Right IJ catheter at the superior cavoatrial junction. 2. No pneumothorax. 3. Mild patchy opacities throughout both lungs suggesting multifocal pneumonitis. RADIA
[2018-04-14] MEDS ORDERED: TEMAZEPAM 15 MG CAPSULE PO PRN (15:24)
[2018-04-14] MEDS ORDERED: PROCHLORPERAZINE 10 MG/2 ML VIAL IVP PRN (15:24)
[2018-04-14] MEDS ORDERED: SODIUM CHLORIDE FLUSH 0.9% 10 ML SYRINGE IVP PRN (15:24)
[2018-04-14] MEDS ORDERED: HYDROmorphone 1 MG/ML CARPUJECT IVP PRN (15:24)
[2018-04-14] MEDS ORDERED: CALCIUM CARBONATE CHEW 500 MG TABLET PO PRN (15:34)
[2018-04-14] MEDS ORDERED: ONDANSETRON ODT 4 MG TABLET TL PRN (15:34)
[2018-04-14] MEDS ORDERED: guaiFENesin 600 MG TABLET PO PRN (15:34)
[2018-04-14] MEDS ORDERED: NITROGLYCERIN SL 0.4 MG TABLET SL PRN (15:34)
[2018-04-14] MEDS ORDERED: PALBOCICLIB 75 MG PO SCH (15:45)
--- NOTE | 2018-04-14 15:53 | HISTORY & PHYSICAL EXAMINATION ---
Chief Complaint - Chief Complaint Chief Complaint: Decreased LOC History of Present Illness - Admitted From Admitted From:: Home - History Obtained From History obtained from: ED physician, Pt's spouse Exam Limitations: Pt is hypersomnolent - History of Present Illness HPI Comment/Other: Mrs. Janell Winters is a 67-year-old female with a history of metastatic breast cancer, currently on chemotherapy with Xeloda, and a history significant for chronic sinusitis, took his mucous angina and coronary artery disease. She has been becoming less responsive over the last day today and a half until today when she is very difficult to arouse. When the patient came to the emergency department she was found to be hypotensive and this continued to worsen to the patient up to a blood pressure ellie of 70/30. She was given aggressive fluid resuscitation with lactated Ringer's and placed on cefepime and vancomycin and her blood pressure has somewhat stabilized. She remains somewhat obtunded and will be admitted to the hospital's intensive care unit with a diagnosis of septic shock, unknown source. History - Past Medical History Cardiovascular: reports: Congestive heart failure, Hypertension Respiratory: reports: None Endocrine/Autoimmune: reports: None, HyPOthyroidism GI: reports: Diverticulitis : reports: Chronic bladder infection, Kidney stones HEENT: reports: Chronic hearing loss Psych: reports: Depression, Anxiety Musculoskeletal: reports: Osteoarthritis Derm: reports: Eczema MRSA Hx?: No - Past Surgical History General: reports: Bowel surgery ([place]th 1&2), Colonoscopy Ortho: reports: Knee replacement - Family & Social History Family History: Mother: , Cancer, Father: , Cancer, [place] Family History Comment/Other: There is reportedly extensive alcoholism throughout the patient's family Living arrangement: At home Living Situation: With spouse/s.o. - Substance History Use: Uses substance without health or social issues: NONE Abuse: Recurrent use of substance despite neg consequences: NONE Dependence: Experiences withdrawal or developed tolerances: NONE - POLST Patient has POLST: Yes POLST Status: Limited Interventions Meds/Allgy - Home Medications Home Medications: Ambulatory Orders Medication Instructions Recorded Confirmed Aspirin 81 mg PO DAILY 02/16/13 04/14/18 Polyethylene Glycol 3350 [Miralax] 0.66 cap PO DAILY 03/26/15 04/14/18 Letrozole 2.5 mg PO DAILY 10/07/15 04/14/18 Ondansetron HCl [Zofran] 4 mg PO Q6HR PRN 11/15/15 04/14/18 Omeprazole [PriLOSEC] 40 mg PO DAILY 12/17/15 04/14/18 Methadone 30 mg PO TID 06/30/16 04/14/18 Carvedilol 3.125 mg PO BID 03/30/17 04/14/18 Nitroglycerin 0.4 mg SL PRN PRN 04/27/17 04/14/18 Biotin 500 mcg PO TID 05/06/17 04/14/18 Best Cit/Mag/D3/Zn/Enterprise Systems Architect/Yhair/Bor 2 tab PO BID 05/06/17 04/14/18 [Citracal-Vit D + Magnesium Tab] Cholecalciferol [Vitamin D3] 5,000 unit PO DAILY 05/06/17 04/14/18 Fexofenadine HCl 180 mg PO DAILY 05/06/17 04/14/18 Guaifenesin [Mucinex] 600 mg PO BID PRN 05/06/17 04/14/18 Oxycodone HCl 20 - 40 mg PO Q3HR PRN 05/06/17 04/14/18 Sennosides [Senna Lax] 2 tab PO BID 05/06/17 04/14/18 Gabapentin 700 mg PO TID 06/29/17 04/14/18 Escitalopram [Lexapro] 20 mg PO DAILY 10/19/17 04/14/18 Palbociclib [Ibrance] 75 mg PO .DAILY 3 WKS/1 OFF 11/04/17 04/14/18 Calcium Carbonate [Tums (Calcium 500 mg PO PRN PRN 12/07/17 04/14/18 Carbonate 500mg)] Fluticasone [Flonase] 1 spray INH DAILY 12/07/17 04/14/18 L.acid/L.casei/B.bif/B.dieter/Fos 1 cap PO BID 12/07/17 04/14/18 [Probiotic Blend Capsule] D-Manose 500 mg PO BID 01/04/18 04/14/18 Losartan Potassium 12.5 mg PO DAILY 01/28/18 04/14/18 Methylphenidate [Ritalin] 2.5 - 5 mg PO .1-2 X DAILY PRN MDD 02/01/18 04/14/18 10 MG Dexamethasone 4 mg PO BID 03/01/18 04/14/18 Albuterol Sulf [Ventolin Hfa 1 - 2 puffs INH Q4HR PRN #1 inhaler 04/13/18 Inhaler] Atorvastatin Calcium 40 mg PO DAILY 04/14/18 04/14/18 - Allergies Allergies/Adverse Reactions: Allergies Allergy/AdvReac Type Severity Reaction Status Date / Time oxaprozin [From Daypro] Allergy Intermediate Rash Verified 04/14/18 11:42 sulfamethoxazole Allergy Intermediate Rash Verified 04/14/18 11:42 [From ] codeine [Codeine] AdvReac Mild Cramps Verified 04/14/18 11:42 erythromycin base AdvReac Mild Cramps Verified 04/14/18 15:57 [Erythromycin Base] meperidine AdvReac Mild Anxiety Verified 04/14/18 15:57 minocycline [Minocycline] AdvReac Mild Cramps Verified 04/14/18 15:57 Review of Systems - Constitutional Constitutional: reports: Fatigue, Malaise, Weakness, Poor appetite. denies: Fever, Chills, Night sweats - Eyes Eyes: denies: Pain, Irritation, Amaurosis, Blurred vision, Dipolpia - Ears, Nose & Throat Ears, Nose & Throat: denies: Ear pain, Tinnitus, Vertigo, Nasal pain, Nosebleeds , Sore throat - Cardiovascular Cariovascular: denies: Irregular heart rate, Palpitations, Chest pain, Edema, Syncope - Respiratory Respiratory: reports: SOB with exertion. denies: Cough, Sputum production, Wheezing, Snoring, Hemoptysis - Gastrointestinal Gastrointestinal: denies: Abdominal pain, Abdominal distention, Constipation, Diarrhea, Change in bowel habits, Rectal bleeding - Genitourinary Genitourinary: denies: Dysuria, Frequency, Urgency, Hematuria - Musculoskeletal Musculoskeletal: denies: Muscle pain, Back pain, Muscle aches, Stiffness - Integumentary Integumentary: denies: Rash, Pruritis, Lesions, Dryness - Neurological Neurological: reports: General weakness. denies: Focal weakness, Headache, Dizziness - Psychiatric Psychiatric: denies: Depression, Anxiety, Suicidal, Hallucinations - Endocrine Endocrine: denies: Polyuria, Polydypsia, Polyphagia - Hematologic/Lymphatic Hematologic/Lymphatic: denies: Anemia, Bruising, Petechiae, Lymphadenopathy - All Other Systems All Other Systems: reports: Reviewed and negative Exam - Vital Signs Reviewed Vital Signs: Yes Vital Signs: Vital Signs x48h Temp Pulse Resp BP Pulse Ox 04/14/18 15:30 78 10 L 110/68 97 04/14/18 14:24 79 10 L 108/65 100 04/14/18 13:16 85 13 84/48 L 98 04/14/18 12:37 36.9 C 92 10 L 85/55 L 98 04/14/18 11:37 37.4 C 124 H 20 99/61 94 - Physical Exam General Appearance: positive: No acute distress, Lethargic Eyes Bilateral: positive: Normal inspection, PERRL, EOMI ENT: positive: ENT inspection nml, Pharynx nml, No signs of dehydration Neck: positive: Nml inspection, Thyroid nml, No JVD, Trachea midline. negative : Thyromegaly Respiratory: positive: Chest non-tender, No respiratory distress, Breath sounds nml. negative: Wheezes, Rales, Rhonchi Cardiovascular: positive: Regular rate & rhythm, No murmur, No gallop Peripheral Pulses: positive: 1+ Abdomen: positive: Non-tender, No organomegaly, Nml bowel sounds, No distention. negative: Guarding, Rebound Back: positive: Nml inspection. negative: CVA tenderness (R), CVA tenderness (L ) Skin: positive: Color nml, No rash, Warm, Dry. negative: Cyanosis Extremities: positive: Non-tender, Full ROM, Nml appearance, No pedal edema Neurologic/Psychiatric: positive: Oriented x3, CN's nml (2-12), Motor nml, Sensation nml, Depressed mood/affect (hypersomnolent) Conclusion/Plan - Problem List (1) Septic shock Conclusion/Plan: The diagnosis of septic shock is based on the patient's septic presentation and her associated hypotension. This has responded well to crystalloid fluids and her blood pressure at this time is 110/78. At this time it does not appear as if she will need vasopressors. Her initial lactic acid was 1.1 and does not need to be repeated. We are unsure of the etiology of the infection and have placed the patient on wide spectrum antibiotics, and of note is that the patient is concurrently receiving oral chemotherapy, specifically Xeloda, and has a white blood cell count of 3.7. Today is day 8 of Xeloda in the leukocyte ellie typically occurs between again 10 and 14. We will monitor her closely and if necessary order a leukocyte boosting medication such as neulasta. We have placed her in the intensive care unit and will monitor closely and when she stabilizes we will move her to a medical surgical bed. (2) Breast cancer metastasized to bone Conclusion/Plan: The patient is seeing Dr. Christelle Feliz for treatment of her metastatic breast cancer. I spoke with Dr. Feliz and she recommends continuing the patient on Xeloda at this time, as she feels that she should only stop if the patient comes truly neutropenic or experiences significant side effects such as diarrhea. (3) Chronic pain due to malignant neoplastic disease Conclusion/Plan: The patient reportedly has widespread metastatic bony involvement everywhere except for distal to her knees and elbows. We will continue on her home medication regimen which includes methadone, dexamethasone, and oxycodone. (4) Hyperlipidemia Conclusion/Plan: Presumably well-managed, we will continue the patient on her home dosing of Lipitor. (5) Anxiety and depression Conclusion/Plan: The patient has a history of anxiety and depression and takes Lexapro at home. We will continue this while she is in the hospital. (6) Allergic rhinitis Conclusion/Plan: Patient has a history of allergic rhinitis and takes guaifenesin fexofenadine and fluticasone at home. We will continue these while she is in the hospital. (7) Coronary artery disease Conclusion/Plan: The patient has a history of coronary artery disease and takes a daily baby aspirin and nitroglycerin as needed at home. We will continue this while she is in the hospital. - Lab Results Lab results reviewed: Yes Fish Bones: 04/14/18 12:26 04/14/18 12:26 - Diagnostic Imaging Results Diagnostic Imaging Results: positive: Final report reviewed Diagnostic Imaging Results Comments: EXAM: CHEST RADIOGRAPHY EXAM DATE: 04/13/2018 06:43 PM. CLINICAL HISTORY: Chest pain, left sided. Fever. COMPARISON: CHEST 2 VIEW PA/LAT 02/17/2013. TECHNIQUE: 2 views. FINDINGS: Lungs/Pleura: No focal opacities evident. No pleural effusion. No pneumothorax. Normal volumes. Mediastinum: Heart and mediastinal contours are unremarkable. Other: No compression fractures. IMPRESSION: Normal 2-view chest radiography. CT HEAD EXAM DATE: 04/14/2018 12:58 PM. CLINICAL HISTORY: Lethargy, headache. COMPARISON: CT sinuses 02/05/2018. TECHNIQUE: Multiaxial CT images were obtained from the foramen magnum to the vertex. Reformats: Coronal. IV contrast: None. In accordance with CT protocol optimization, one or more of the following dose reduction techniques were utilized for this exam: automated exposure control, adjustment of mA and/or KV based on patient size, or use of iterative reconstructive technique. FINDINGS: Parenchyma: No intraparenchymal hemorrhage. No evidence of mass, midline shift, or CT findings of infarction. Whittaker-white differentiation is distinct. Extraaxial Spaces: Normal for age. No subdural or epidural collections identified. Ventricles: Normal in size and position. Sinuses and Orbits: Imaged paranasal sinuses, orbits, and mastoids show no significant abnormality. Bones: No evidence of fracture or calvarial defect. Other: None. IMPRESSION: Normal head CT. No intracranial hemorrhage, mass effect, or other acute abnormality. EXAM: CHEST RADIOGRAPHY EXAM DATE: 04/14/2018 01:07 PM. CLINICAL HISTORY: Cough fever. COMPARISON: 04/13/2018. TECHNIQUE: 1 view. FINDINGS: Lungs/Pleura: Lung volumes appear normal. No consolidative process. No pulmonary edema or pneumothorax. Mediastinum: Within exam limitations, the cardiomediastinal contour is normal. Other: None. IMPRESSION: No developing focal pneumonia. EXAM: CHEST RADIOGRAPHY EXAM DATE: 04/14/2018 02:16 PM. CLINICAL HISTORY: Status post line placement. COMPARISON: 1257 hrs. Today. TECHNIQUE: 1 view. FINDINGS: Lungs/Pleura: Mild patchy opacities throughout both lungs. No peripheral interstitial abnormality. No pneumothorax or gross pleural fluid. Mediastinum: Within exam limitations, the cardiomediastinal contour is normal. Right IJ catheter with its tip at the superior cavoatrial junction. Other: None. IMPRESSION: 1. Right IJ catheter at the superior cavoatrial junction. 2. No pneumothorax. 3. Mild patchy opacities throughout both lungs suggesting multifocal pneumonitis. Core Measures - Anticipated LOS I expect patient to be DC'd or transferred within 96 hours.: Yes - DVT/VTE - Prophylaxis VTE/DVT Device ordered at admit?: Yes
[2018-04-14] MEDS: SODIUM CHLORIDE FLUSH 0.9% 10 ML SYRINGE IVP SCH (17:11)
[2018-04-14] MEDS: SACCHAROMYCES BOULARDII 250 MG CAPSULE PO SCH (17:11)
[2018-04-14] MEDS: D5.45NS W/20 MEQ KCL 1,000 ML IV SCH ×2 (17:11→21:16)
[2018-04-14] MEDS: GABAPENTIN 100 MG CAPSULE PO SCH (21:15)
[2018-04-14] MEDS: DEXAMETHASONE 4 MG TABLET PO SCH (21:15)
[2018-04-14] MEDS: METHADONE 5 MG TABLET PO SCH (21:15)
[2018-04-14] MEDS: GABAPENTIN 300 MG CAPSULE PO SCH (21:15)
[2018-04-14] MEDS: SENNA 8.6 MG TABLET PO SCH (21:15)
[2018-04-14] MEDS: BIOTIN 500 MCG PO SCH (21:16)
[2018-04-14] MEDS: [UNRECOGNIZED DRUG - OTHER] PO SCH (21:16)
[2018-04-14] MEDS: MAGNESIUM PO SCH (21:16)
[2018-04-15] MEDS: oxyCODONE 5 MG TABLET PO PRN ×3 (03:58→21:37)
[2018-04-15] MEDS: SODIUM CHLORIDE FLUSH 0.9% 10 ML SYRINGE IVP SCH ×3 (03:59→16:39)
[2018-04-15] MEDS: BIOTIN 500 MCG PO SCH ×3 (05:48→21:07)
[2018-04-15] MEDS: GABAPENTIN 100 MG CAPSULE PO SCH ×3 (06:04→20:11)
[2018-04-15] MEDS: METHADONE 5 MG TABLET PO SCH ×3 (06:04→20:12)
[2018-04-15] MEDS: GABAPENTIN 300 MG CAPSULE PO SCH ×3 (06:04→20:11)
[2018-04-15 06:30] LABS: BASOPHILS % (AUTO) 0.2 %; EOSINOPHILS % (AUTO) 0.4 %; LYMPHOCYTES # (AUTO) 0.2 10^3/uL (1.5-3.5); LYMPHOCYTES % (AUTO) 5.8 %; MEAN CORPUSCULAR HEMOGLOBIN 33.7 pg (27.0-31.0); MEAN CORPUSCULAR HGB CONC 32.9 g/dL (32.0-36.0); MEAN CORPUSCULAR VOLUME 102.3 fL (81.0-99.0); MEAN PLATELET VOLUME 6.1 fL (7.9-10.8); MONOCYTES # (AUTO) 0.2 10^3/uL (0.0-1.0); MONOCYTES % (AUTO) 3.9 %; NEUTROPHILS # (AUTO) 3.6 10^3/uL (1.5-6.6); NEUTROPHILS % (AUTO) 89.7 %; PLT - PLATELET COUNT 201 10^3/uL (130-450); RED BLOOD COUNT 2.09 10^6/uL (4.20-5.40); RED CELL DISTRIBUTION WIDTH 17.3 % (12.0-15.0)
[2018-04-15 06:31] LABS: CALCIUM 7.8 mg/dL (8.5-10.3); CREATININE 0.9 mg/dL (0.4-1.0); PHOSPHORUS 2.9 mg/dL (2.5-4.6)
[2018-04-15] MEDS ORDERED: ACETAMINOPHEN 325 MG TABLET PO ONE (07:20)
[2018-04-15] MEDS ORDERED: SODIUM CHLORIDE 0.9% 1,000 ML IV SCH (08:00)
[2018-04-15] MEDS ORDERED: levoFLOXacin 500 MG/100 ML 500 MG/100 ML BAG IV SCH (08:00)
[2018-04-15] MEDS ORDERED: VANCOMYCIN PER PHARMACY 100 GM in SODIUM CHLORIDE 0.9% 250 ML IV SCH (09:00)
[2018-04-15] MEDS ORDERED: LETROZOLE 2.5MG PO SCH (09:00)
[2018-04-15] MEDS: CEFEPIME 2 GM in SODIUM CHLORIDE 0.9% MINIBAG 100 ML IV SCH ×3 (09:12→21:47)
[2018-04-15] MEDS: D5.45NS W/20 MEQ KCL 1,000 ML IV SCH ×3 (09:12→16:40)
[2018-04-15] MEDS: SACCHAROMYCES BOULARDII 250 MG CAPSULE PO SCH ×2 (09:13→16:39)
[2018-04-15] MEDS: DEXAMETHASONE 4 MG TABLET PO SCH ×2 (09:14→21:37)
[2018-04-15] MEDS: ESCITALOPRAM 10 MG TABLET PO SCH (09:14)
[2018-04-15] MEDS: FAMOTIDINE 20 MG TABLET PO SCH (09:15)
[2018-04-15] MEDS: FEXOFENADINE 60 MG TABLET PO SCH (09:16)
[2018-04-15] MEDS: LOSARTAN 50 MG TABLET PO SCH (09:17)
[2018-04-15] MEDS: PANTOPRAZOLE 40 MG TABLET PO SCH (09:18)
[2018-04-15] MEDS: POLYETHYLENE GLYCOL 3350 17 GM PACKET PO SCH (09:19)
[2018-04-15] MEDS: SENNA 8.6 MG TABLET PO SCH ×2 (09:19→21:37)
[2018-04-15] MEDS: VANCOMYCIN INJ 1.5 GM in SODIUM CHLORIDE 0.9% 500 ML IV SCH ×2 (09:21→22:43)
--- NOTE | 2018-04-15 09:21 | XRAY Report ---
Procedure Date: 04/15/2018 Accession Number: [id number] / [id number] Procedure: XR - Chest 1 View X-Ray CPT Code: 41231 FULL RESULT: EXAM: Chest 1 View X-Ray DATE: 04/15/2018 9:09 AM CLINICAL HISTORY: opacities on line placement film COMPARISON: 04/14/2018 TECHNIQUE: Single view of the chest. FINDINGS: Lungs/Pleura: The lungs are better aerated. No focal infiltrate, effusion, or pneumothorax. Mediastinum: Within exam limitations, cardiomediastinal contour is normal. Other: Right jugular catheter terminating in the distal superior vena cava. IMPRESSION: No evidence of acute cardiopulmonary disease. RADIA
[2018-04-15] MEDS: [UNRECOGNIZED DRUG - OTHER] PO SCH ×2 (09:24→21:15)
[2018-04-15] MEDS: MAGNESIUM PO SCH ×2 (09:24→21:15)
[2018-04-15] MEDS: CAPECITABINE 150 MG PO SCH ×2 (09:26→21:16)
[2018-04-15] MEDS: CAPECITABINE 500 MG PO SCH ×2 (09:26→21:16)
[2018-04-15] MEDS ORDERED: diphenhydrAMINE 25 MG CAPSULE PO ONE (10:00)
[2018-04-15] MEDS: FLUTICASONE NASAL SPRAY NAS SCH (10:05)
[2018-04-15] MEDS: FUROSEMIDE 20 MG/2 ML VIAL IVP PRN ×2 (14:39→17:50)
--- NOTE | 2018-04-15 16:30 | PROVIDER PROGRESS NOTE ---
Subjective - Prog Note Date Prog Note Date: 04/15/18 Prog Note Time: 14:45 - Subjective Pt reports feeling: Improved Subjective: The patient has improved significantly and now appears to be almost back to baseline. She is very lucid and easily able to carry on a conversation. She denies any significant pain, shortness of breath, chest pain, fevers or chills. She is eating and moving her bowels. Current Medications - Current Medications Current Medications: Active Medications Generic Name Dose Route Start Last Admin Trade Name Frebobby PRN Reason Stop Dose Admin Calcium Carbonate/Glycine 500 mg 04/14/18 15:34 Tums PO PRN PRN Heartburn Dexamethasone 4 mg 04/14/18 21:00 04/15/18 09:14 Decadron PO 4 mg BID MARCY Administration Escitalopram Oxalate 20 mg 04/15/18 09:00 04/15/18 09:14 Lexapro PO 20 mg DAILY MARCY Administration Famotidine 20 mg 04/15/18 09:00 04/15/18 09:15 Pepcid PO 20 mg DAILY MARCY Administration Fexofenadine HCl 180 mg 04/15/18 09:00 04/15/18 09:16 Bridgett PO 180 mg DAILY MARCY Administration Fluticasone Propionate 1 sprays 04/15/18 09:00 04/15/18 10:05 Flonase RASHEED 1 sprays DAILY MARCY Administration Furosemide 20 mg 04/15/18 07:20 04/15/18 14:39 Lasix Inj 20mg Vial IVP 04/16/18 07:19 20 mg ONCE PRN Administration Between units Gabapentin 600 mg 04/15/18 12:00 04/15/18 11:52 Neurontin PO 600 mg 0400,1200,2000 MARCY Administration Gabapentin 100 mg 04/15/18 12:00 04/15/18 11:52 Neurontin PO 100 mg 0400,1200,2000 MARCY Administration Guaifenesin 600 mg 04/14/18 15:34 Mucinex PO BID PRN Cough Hydromorphone HCl 1 mg 04/14/18 15:24 Dilaudid Inj Carp IVP Q2HR PRN Pain 8 to 10 Potassium Chloride/Dextrose/Sod Cl 1,000 mls @ 150 mls/hr 04/14/18 16:00 03/28 09:37 D5.45ns W/20 Meq Kcl IV 150 mls/hr .Q6H40M MARCY Administration Sodium Chloride 1,000 mls @ 0 mls/hr 04/15/18 08:00 Normal Saline 0.9% IV .Q0M MARCY TKO Cefepime HCl 2 gm/ Sodium 100 mls @ 200 mls/hr 04/15/18 08:00 04/15/18 09:39 Chloride IV Infused BID MARCY Infusion Vancomycin HCl 1.5 gm/ Sodium 500 mls @ 250 mls/hr 04/15/18 09:00 04/15/18 12 :00 Chloride IV Infused Q12H MARCY Infusion Losartan Potassium 12.5 mg 04/15/18 09:00 04/15/18 09:17 Cozaar PO 12.5 mg DAILY MARCY Administration Methadone HCl 30 mg 04/15/18 12:00 04/15/18 11:53 PO 30 mg 0400,1200,2000 MARCY Administration Nitroglycerin 0.4 mg 04/14/18 15:34 Nitrostat SL PRN PRN Angina Ondansetron HCl 4 mg 04/14/18 15:34 Zofran Odt TL Q6HR PRN Nausea / Vomiting Oxycodone HCl 20 mg 04/14/18 15:34 04/15/18 11:53 Roxicodone PO 20 mg Q3HR PRN Administration PAIN Pantoprazole Sodium 40 mg 04/15/18 09:00 04/15/18 09:18 Protonix PO Not Given DAILY MARCY Biotin 500 Mcg 500 each 04/14/18 22:00 04/15/18 14:41 PO Not Given TID MARCY Citracal-Vit D + 2 each 04/14/18 21:00 04/15/18 09:24 Magnesium Tab PO 2 each BID MARCY Administration Capecitabine 500mg 3 each 04/15/18 09:00 04/15/18 09:26 Tab PO 3 each BID MARCY Administration Capecitabine 150 Mg 2 each 04/15/18 09:00 04/15/18 09:26 Tab PO 2 each BID MARCY Administration Polyethylene Glycol 17 gm 04/15/18 09:00 04/15/18 09:19 Miralax PO 17 gm DAILY MARCY Administration Prochlorperazine Edisylate 10 mg 04/14/18 15:24 Compazine Inj IVP Q6HR PRN Nausea / Vomiting Saccharomyces Boulardii 250 mg 04/14/18 17:00 04/15/18 09:13 Florastor PO 250 mg BIDWM MARCY Administration Senna 17.2 mg 04/14/18 21:00 04/15/18 09:19 Senokot PO 8.6 mg BID MARCY Administration Sodium Chloride 10 ml 04/14/18 17:00 04/15/18 09:21 Normal Saline Flush 0.9% IVP 10 ml 0100,0900,1700 MARCY Administration Sodium Chloride 10 ml 04/14/18 15:24 Normal Saline Flush 0.9% IVP PRN PRN NEEDED PER PROVIDER ORDERS Temazepam 15 mg 04/14/18 15:24 Restoril PO QPM PRN Insomnia Aspirin 81 mg PO DAILY 02/16/13 Polyethylene Glycol 3350 [Miralax] 0.66 cap PO DAILY 03/26/15 Ondansetron HCl [Zofran] 4 mg PO Q6HR PRN 11/15/15 Omeprazole [PriLOSEC] 40 mg PO DAILY 12/17/15 Methadone 30 mg PO TID 06/30/16 Carvedilol 3.125 mg PO BID 03/30/17 Nitroglycerin 0.4 mg SL PRN PRN 04/27/17 Biotin 500 mcg PO TID 05/06/17 Best Cit/Mag/D3/Zn/Gift Officer/Yahir/Bor [Citracal-Vit D + Magnesium Tab] 2 tab PO BID Cholecalciferol [Vitamin D3] 5,000 unit PO DAILY 05/06/17 Fexofenadine HCl 180 mg PO DAILY 05/06/17 Guaifenesin [Mucinex] 600 mg PO BID PRN 05/06/17 Oxycodone HCl 20 - 40 mg PO Q3HR PRN 05/06/17 Sennosides [Senna Lax] 2 tab PO BID 05/06/17 Gabapentin 700 mg PO TID 06/29/17 Escitalopram [Lexapro] 20 mg PO DAILY 10/19/17 Calcium Carbonate [Tums (Calcium Carbonate 500mg)] 500 mg PO PRN PRN 12/07/17 Fluticasone [Flonase] 1 spray INH DAILY 12/07/17 L.acid/L.casei/B.bif/B.dieter/Fos [Probiotic Blend Capsule] 1 cap PO BID 12/07/17 D-Manose 500 mg PO BID 01/04/18 Losartan Potassium 12.5 mg PO DAILY 01/28/18 Methylphenidate [Ritalin] 2.5 - 5 mg PO .1-2 X DAILY PRN MDD 10 MG 02/01/18 Dexamethasone 4 mg PO BID 03/01/18 Atorvastatin Calcium 40 mg PO DAILY 04/14/18 Capecitabine [Xeloda] 1,500 mg PO BID 04/15/18 Capecitabine [Xeloda] 300 mg PO BID 04/15/18 Objective - Vital Signs/Intake & Output Reviewed Vital Signs: Yes Vital Signs: Vital Signs x48h Temp Pulse Pulse Resp BP BP Pulse Ox 04/15/18 16:00 36.6 C 73 16 119/67 98 04/15/18 15:00 37 C 75 20 118/74 99 04/15/18 14:30 36.8 C 71 16 110/66 04/15/18 14:00 36.9 C 74 16 93/62 98 04/15/18 13:00 36.8 C 72 20 102/66 98 04/15/18 12:00 36.3 C L 79 18 122/77 99 04/15/18 11:08 36.6 C 82 22 113/70 99 04/15/18 11:00 83 19 119/84 H 100 04/15/18 10:48 36.6 C 88 19 113/70 04/15/18 10:00 90 20 121/80 99 04/15/18 09:00 90 20 103/70 99 Intake & Output: Intake & Output 04/12/18 04/13/18 04/14/18 04/15/18 23:59 23:59 23:59 23:59 Intake Total 4332.5 3804 Output Total 0 650 Balance 4332.5 3154 - Objective General Appearance: positive: No acute distress, Alert, Mild distress Eyes Bilateral: positive: Normal inspection, PERRL, EOMI, No lid inflammation, Conjunctivae nml, No scleral icterus ENT: positive: ENT inspection nml, Pharynx nml, No signs of dehydration Neck: positive: Nml inspection, Thyroid nml, No JVD, Trachea midline. negative : Thyromegaly Respiratory: positive: Chest non-tender, No respiratory distress, Breath sounds nml. negative: Wheezes, Rales, Rhonchi Cardiovascular: positive: Regular rate & rhythm, No murmur, No gallop Abdomen: positive: Non-tender, No organomegaly, Nml bowel sounds, No distention. negative: Guarding, Rebound Back: positive: Nml inspection. negative: CVA tenderness (R), CVA tenderness (L ) Skin: positive: Color nml, No rash, Warm, Dry. negative: Cyanosis Extremities: positive: Non-tender, Full ROM, Nml appearance, No pedal edema Neurologic/Psychiatric: positive: Oriented x3, CN's nml (2-12), Motor nml, Sensation nml, Mood/affect nml - Lab Results Fish Bones: 04/15/18 05:55 04/15/18 05:55 Other Labs: Lab Results x24hrs 04/15/18 04/15/18 04/15/18 Range/Units 09:49 07:38 05:55 WBC (4.8-10.8) x10^3/uL RBC (4.20-5.40) 10^6/uL Hgb (12.0-16.0) g/dL Hct (37.0-47.0) % MCV (81.0-99.0) fL MCH (27.0-31.0) pg MCHC (32.0-36.0) g/dL RDW (12.0-15.0) % Plt Count (130-450) 10^3/uL MPV (7.9-10.8) fL Neut # (Auto) (1.5-6.6) 10^3/uL Lymph # (Auto) (1.5-3.5) 10^3/uL [place] # (Auto) (0.0-1.0) 10^3/uL Eos # (Auto) (0.0-0.7) 10^3/uL Baso # (Auto) (0.0-0.1) 10^3/uL Absolute Nucleated RBC x10^3/uL Nucleated RBC % /100WBC Sodium 137 (135-145) mmol/L Potassium 4.3 (3.5-5.0) mmol/L Chloride 103 (101-111) mmol/L Carbon Dioxide 30 (21-32) mmol/L Anion Gap 4.0 L (6-13) BUN 24 H (6-20) mg/dL Creatinine 0.9 (0.4-1.0) mg/dL Estimated GFR (MDRD) 63 L (>89) Glucose 109 H (70-100) mg/dL Calcium 7.8 L (8.5-10.3) mg/dL Phosphorus 2.9 (2.5-4.6) mg/dL Magnesium 2.0 (1.7-2.8) mg/dL Blood Type O POSITIVE Blood Type Recheck O POSITIVE Antibody Screen NEGATIVE Crossmatch IS Only See Detail 04/15/18 Range/Units 05:55 WBC 4.0 L (4.8-10.8) x10^3/uL RBC 2.09 L (4.20-5.40) 10^6/uL Hgb 7.0 L* (12.0-16.0) g/dL Hct 21.4 L (37.0-47.0) % MCV 102.3 H (81.0-99.0) fL MCH 33.7 H (27.0-31.0) pg MCHC 32.9 (32.0-36.0) g/dL RDW 17.3 H (12.0-15.0) % Plt Count 201 (130-450) 10^3/uL MPV 6.1 L (7.9-10.8) fL Neut # (Auto) 3.6 (1.5-6.6) 10^3/uL Lymph # (Auto) 0.2 L (1.5-3.5) 10^3/uL [place] # (Auto) 0.2 (0.0-1.0) 10^3/uL Eos # (Auto) 0.0 (0.0-0.7) 10^3/uL Baso # (Auto) 0.0 (0.0-0.1) 10^3/uL Absolute Nucleated RBC 0.00 x10^3/uL Nucleated RBC % 0.1 /100WBC Sodium (135-145) mmol/L Potassium (3.5-5.0) mmol/L Chloride (101-111) mmol/L Carbon Dioxide (21-32) mmol/L Anion Gap (6-13) BUN (6-20) mg/dL Creatinine (0.4-1.0) mg/dL Estimated GFR (MDRD) (>89) Glucose (70-100) mg/dL Calcium (8.5-10.3) mg/dL Phosphorus (2.5-4.6) mg/dL Magnesium (1.7-2.8) mg/dL Blood Type Blood Type Recheck Antibody Screen Crossmatch IS Only - Diagnostic Imaging Diagnostic Imaging Results: positive: Final report reviewed Diagnostic Imaging Comments: EXAM: Chest 1 View X-Ray DATE: 04/15/2018 9:09 AM CLINICAL HISTORY: opacities on line placement film COMPARISON: 04/14/2018 TECHNIQUE: Single view of the chest. FINDINGS: Lungs/Pleura: The lungs are better aerated. No focal infiltrate, effusion, or pneumothorax. Mediastinum: Within exam limitations, cardiomediastinal contour is normal. Other: Right jugular catheter terminating in the distal superior vena cava. IMPRESSION: No evidence of acute cardiopulmonary disease. ABX Reporting Has patient been on IV antibiotics over the past 48 hours?: Yes Assessment/Plan - Problem List (1) Septic shock Impression: Resolved. Patient's blood pressure has been steady with a MAP of over 90 for 24 hours. She "woke up" late last night from her hypersomnolent state and is completely lucid today. Patient never mounted an elevated lactic acid, and she appears to be back to her baseline in all areas. (2) Breast cancer metastasized to bone Impression: The patient is seeing Dr. Christelle Feliz for treatment of her metastatic breast cancer. I spoke with Dr. Feliz and she recommends continuing the patient on Xeloda at this time, as she feels that she should only stop if the patient comes truly neutropenic or experiences significant side effects such as diarrhea. (3) Chronic pain due to malignant neoplastic disease Impression: The patient reportedly has widespread metastatic bony involvement everywhere except for distal to her knees and elbows. We have continued on her home medication regimen which includes methadone, dexamethasone, and oxycodone. (5) Anxiety and depression Impression: The patient has a history of anxiety and depression and takes Lexapro at home. We have continued this while she is in the hospital. (6) Allergic rhinitis Impression: Patient has a history of allergic rhinitis and takes guaifenesin fexofenadine and fluticasone at home. We have continued these while she is in the hospital. (7) Coronary artery disease Impression: The patient has a history of coronary artery disease and takes a daily baby aspirin and nitroglycerin as needed at home. We have continued this while she is in the hospital.
[2018-04-16] MEDS: oxyCODONE 5 MG TABLET PO PRN ×2 (00:11→04:30)
[2018-04-16 00:53] LABS: HGB - HEMOGLOBIN 10.5 g/dL (12.0-16.0)
[2018-04-16] MEDS: D5.45NS W/20 MEQ KCL 1,000 ML IV SCH (02:21)
[2018-04-16] MEDS: SODIUM CHLORIDE FLUSH 0.9% 10 ML SYRINGE IVP SCH ×2 (02:21→06:38)
[2018-04-16] MEDS: GABAPENTIN 100 MG CAPSULE PO SCH (04:21)
[2018-04-16] MEDS: METHADONE 5 MG TABLET PO SCH (04:21)
[2018-04-16] MEDS: GABAPENTIN 300 MG CAPSULE PO SCH (04:21)
[2018-04-16] MEDS: BIOTIN 500 MCG PO SCH (06:37)
[2018-04-16 06:59] LABS: BASOPHILS % (AUTO) 0.1 %; EOSINOPHILS % (AUTO) 0.1 %; HGB - HEMOGLOBIN 10.7 g/dL (12.0-16.0); LYMPHOCYTES # (AUTO) 0.3 10^3/uL (1.5-3.5); MEAN CORPUSCULAR HEMOGLOBIN 31.6 pg (27.0-31.0); MEAN CORPUSCULAR HGB CONC 33.1 g/dL (32.0-36.0); MEAN CORPUSCULAR VOLUME 95.4 fL (81.0-99.0); MEAN PLATELET VOLUME 6.2 fL (7.9-10.8); MONOCYTES # (AUTO) 0.2 10^3/uL (0.0-1.0); MONOCYTES % (AUTO) 4.2 %; NEUTROPHILS # (AUTO) 4.5 10^3/uL (1.5-6.6); NEUTROPHILS % (AUTO) 89.6 %; PLT - PLATELET COUNT 204 10^3/uL (130-450); RED BLOOD COUNT 3.38 10^6/uL (4.20-5.40); RED CELL DISTRIBUTION WIDTH 19.8 % (12.0-15.0); WHITE BLOOD COUNT 5.1 x10^3/uL (4.8-10.8)
[2018-04-16 07:11] LABS: CREATININE 0.8 mg/dL (0.4-1.0)
[2018-04-16 08:00] VITALS: BP 146/87
[2018-04-16] MEDS: SACCHAROMYCES BOULARDII 250 MG CAPSULE PO SCH (08:50)
[2018-04-16] MEDS: LOSARTAN 50 MG TABLET PO SCH (08:51)
[2018-04-16] MEDS: ESCITALOPRAM 10 MG TABLET PO SCH (08:51)
[2018-04-16] MEDS: FAMOTIDINE 20 MG TABLET PO SCH (08:52)
[2018-04-16] MEDS: CEFEPIME 2 GM in SODIUM CHLORIDE 0.9% MINIBAG 100 ML IV SCH (08:52)
[2018-04-16] MEDS: DEXAMETHASONE 4 MG TABLET PO SCH (08:52)
[2018-04-16] MEDS: FEXOFENADINE 60 MG TABLET PO SCH (08:52)
[2018-04-16] MEDS: FLUTICASONE NASAL SPRAY NAS SCH (08:54)
[2018-04-16] MEDS: CAPECITABINE 500 MG PO SCH (08:55)
[2018-04-16] MEDS: CAPECITABINE 150 MG PO SCH (08:55)
[2018-04-16] MEDS: MAGNESIUM PO SCH (08:56)
[2018-04-16] MEDS: [UNRECOGNIZED DRUG - OTHER] PO SCH (08:56)
[2018-04-16] MEDS: PANTOPRAZOLE 40 MG TABLET PO SCH (08:59)
--- NOTE | 2018-04-16 09:08 | Discharge Plan ---
Discharge Plan Disposition: 01 Home, Self Care Condition: Stable Diet: Regular Activity Restrictions: Activity as Tolerated Shower Restrictions: No Driving Restrictions: No Assistance Devices: Wheelchair, Walker No Smoking: If you smoke, Please STOP! Call for help. Follow-up with: Noy Ortiz PA [Primary Care Provider] -
[2018-04-16] MEDS: SENNA 8.6 MG TABLET PO SCH (09:13)
[2018-04-16] MEDS: POLYETHYLENE GLYCOL 3350 17 GM PACKET PO SCH (09:14)
--- NOTE | 2018-04-16 09:18 | DISCHARGE SUMMARY ---
Discharge Summary Admit Date: 04/14/18 Discharge Date: 04/16/18 Discharging Provider: Luciana Leiva DO Primary Care Provider: Noy Ortiz Code Status: Do Not Attempt Resuscitation Condition at Discharge: Stable Discharge Disposition: 01 Home, Self Care - DIAGNOSES Admission Diagnoses: 1. Septic shock 2. Breast cancer metastasized to bone 3. Chronic pain due to malignant neoplastic disease 4. Hyperlipidemia 5. Anxiety and depression 6. Allergic rhinitis 7. Coronary artery disease Discharge Diagnoses with Status of Each Condition: 1. Septic shock- Resolved. The patient woke up the evening of her admission and has not been obtunded since. She has not had any issues with hypotension, lactic acidosis, or leukocytosis. She has not run any fevers. The etiology of the sepsis has not been identified. The patient has a history of metastatic breast cancer and is currently receiving Xeloda, and it is possible there was some sort of tumor lysis syndrome occurring at the time of admission, but otherwise the patient is back to baseline for 2 days and the workup for etiology of the sepsis thus far has been negative. 2. Breast cancer metastasized to bone- Stage IV, the patient is seeing Dr. Christelle Tubbs for treatment of the metastatic breast cancer. She has continued on Xeloda and her white blood cell count has continued to rise daily. Is 5.0 today. She will continue Xeloda at home and follow up with Dr. Feliz as previously scheduled. 3. Chronic pain due to malignant neoplastic disease- The patient was restarted on her home pain medication regimen and her pain has been well managed in the hospital. She will resume her home medication regimen post discharge. 4. Hyperlipidemia- Patient has continued on Lipitor while in hospital and will resume this at home. 5. Anxiety and depression- The patient has continued with Lexapro while in the hospital and will resume this at home. 6. Allergic rhinitis - The patient has a history of allergic rhinitis and has been taking her home medications of guaifenesin, fexofenadine, and fluticasone while here in the hospital. She will resume these on discharge. 7. Coronary artery disease- Patient has a history of coronary artery disease and takes a daily baby aspirin and nitroglycerin as needed at home; these were continued while she was in the hospital and she has not needed any nitroglycerin. She will be discharged with the same medications. - HPI History of Present Illness: Mrs. Janell Winters is a 67-year-old female with a history of metastatic breast cancer, currently on chemotherapy with Xeloda, and a history significant for chronic sinusitis, took his mucous angina and coronary artery disease. She has been becoming less responsive over the last day today and a half until today when she is very difficult to arouse. When the patient came to the emergency department she was found to be hypotensive and this continued to worsen to the patient up to a blood pressure ellie of 70/30. She was given aggressive fluid resuscitation with lactated Ringer's and placed on cefepime and vancomycin and her blood pressure has somewhat stabilized. She remains somewhat obtunded and will be admitted to the hospital's intensive care unit with a diagnosis of septic shock, unknown source. - HOSPITAL COURSE Hospital Course: The patient presented to the emergency department somewhat obtunded and declined rapidly, at one point having a blood pressure of 70/30. She was given 3 fluid boluses of lactated Ringer's in the emergency department and her blood pressure stabilized. Central line was placed as it was felt that the patient may need to have vasopressors but this was eventually not necessary. She was admitted to the intensive care unit and was obtunded at that time. Later on this that evening the patient awoke according to her nurse, and was somewhat lucid. The following morning the patient was back to baseline. Although the patient was admitted with a diagnosis of septic shock she never exhibited an elevated leukocyte count which may be related to the Xeloda that she is taking, nor did she exhibit any fevers. Extensive testing, searching for an infection source was negative as was a CT of the head. Patient has been stable for 2 days and will now be discharged home on her home medications. - ALLERGIES Allergies/Adverse Reactions: Allergies Allergy/AdvReac Type Severity Reaction Status Date / Time oxaprozin [From Daypro] Allergy Intermediate Rash Verified 04/14/18 11:42 sulfamethoxazole Allergy Intermediate Rash Verified 04/14/18 11:42 [From Septra] codeine [Codeine] AdvReac Mild Cramps Verified 04/14/18 11:42 erythromycin base AdvReac Mild Cramps Verified 04/14/18 15:57 [Erythromycin Base] meperidine AdvReac Mild Anxiety Verified 04/14/18 15:57 minocycline [Minocycline] AdvReac Mild Cramps Verified 04/14/18 15:57 - MEDICATIONS Home Medications: Ambulatory Orders Medication Instructions Recorded Confirmed Aspirin 81 mg PO DAILY 02/16/13 04/14/18 Polyethylene Glycol 3350 [Miralax] 0.66 cap PO DAILY 03/26/15 04/14/18 Ondansetron HCl [Zofran] 4 mg PO Q6HR PRN 11/15/15 04/14/18 Omeprazole [PriLOSEC] 40 mg PO DAILY 12/17/15 04/14/18 Methadone 30 mg PO TID 06/30/16 04/14/18 Carvedilol 3.125 mg PO BID 03/30/17 04/14/18 Nitroglycerin 0.4 mg SL PRN PRN 04/27/17 04/14/18 Biotin 500 mcg PO TID 05/06/17 04/14/18 Best Cit/Mag/D3/Zn/Pre Coder/Yahir/Bor 2 tab PO BID 05/06/17 04/14/18 [Citracal-Vit D + Magnesium Tab] Cholecalciferol [Vitamin D3] 5,000 unit PO DAILY 05/06/17 04/14/18 Fexofenadine HCl 180 mg PO DAILY 05/06/17 04/14/18 Guaifenesin [Mucinex] 600 mg PO BID PRN 05/06/17 04/14/18 Oxycodone HCl 20 - 40 mg PO Q3HR PRN 05/06/17 04/14/18 Sennosides [Senna Lax] 2 tab PO BID 05/06/17 04/14/18 Gabapentin 700 mg PO TID 06/29/17 04/14/18 Escitalopram [Lexapro] 20 mg PO DAILY 10/19/17 04/14/18 Calcium Carbonate [Tums (Calcium 500 mg PO PRN PRN 12/07/17 04/14/18 Carbonate 500mg)] Fluticasone [Flonase] 1 spray INH DAILY 12/07/17 04/14/18 L.acid/L.casei/B.bif/B.dieter/Fos 1 cap PO BID 12/07/17 04/14/18 [Probiotic Blend Capsule] D-Manose 500 mg PO BID 01/04/18 04/14/18 Losartan Potassium 12.5 mg PO DAILY 01/28/18 04/14/18 Methylphenidate [Ritalin] 2.5 - 5 mg PO .1-2 X DAILY PRN MDD 02/01/18 04/14/18 10 MG Dexamethasone 4 mg PO BID 03/01/18 04/14/18 Albuterol Sulf [Ventolin Hfa 1 - 2 puffs INH Q4HR PRN #1 inhaler 04/13/18 Inhaler] Atorvastatin Calcium 40 mg PO DAILY 04/14/18 04/14/18 Capecitabine [Xeloda] 1,500 mg PO BID 04/15/18 04/15/18 Capecitabine [Xeloda] 300 mg PO BID 04/15/18 04/15/18 - PHYSICAL EXAM AT DISCHARGE General Appearance: positive: No acute distress, Alert Eyes Bilateral: positive: Normal inspection, PERRL, EOMI, No lid inflammation, Conjunctivae nml, No scleral icterus ENT: positive: ENT inspection nml, Pharynx nml, No signs of dehydration Neck: positive: Nml inspection, Thyroid nml, No JVD, Trachea midline. negative : Thyromegaly Respiratory: positive: Chest non-tender, No respiratory distress, Breath sounds nml. negative: Wheezes, Rales, Rhonchi Cardiovascular: positive: Regular rate & rhythm, No murmur, No gallop Peripheral Pulses: positive: 1+ Abdomen: positive: Non-tender, No organomegaly, Nml bowel sounds, No distention. negative: Guarding, Rebound Back: positive: Nml inspection. negative: CVA tenderness (R), CVA tenderness (L ) Skin: positive: Color nml, No rash, Warm, Dry. negative: Cyanosis Extremities: positive: Non-tender, Full ROM, Nml appearance, No pedal edema Neurologic/Psychiatric: positive: Oriented x3, CN's nml (2-12), Motor nml, Sensation nml, Mood/affect nml - LABS Result Diagrams: 04/16/18 06:48 04/16/18 06:48 - DIAGNOSTIC IMAGING Diagnostic Imaging Results: Final report reviewed Diagnostic Imaging Results Comments: EXAM: CHEST RADIOGRAPHY EXAM DATE: 04/13/2018 06:43 PM. CLINICAL HISTORY: Chest pain, left sided. Fever. COMPARISON: CHEST 2 VIEW PA/LAT 02/17/2013. TECHNIQUE: 2 views. FINDINGS: Lungs/Pleura: No focal opacities evident. No pleural effusion. No pneumothorax. Normal volumes. Mediastinum: Heart and mediastinal contours are unremarkable. Other: No compression fractures. IMPRESSION: Normal 2-view chest radiography. EXAM: CT HEAD EXAM DATE: 04/14/2018 12:58 PM. CLINICAL HISTORY: Lethargy, headache. COMPARISON: CT sinuses 02/05/2018. TECHNIQUE: Multiaxial CT images were obtained from the foramen magnum to the vertex. Reformats: Coronal. IV contrast: None. In accordance with CT protocol optimization, one or more of the following dose reduction techniques were utilized for this exam: automated exposure control, adjustment of mA and/or KV based on patient size, or use of iterative reconstructive technique. FINDINGS: Parenchyma: No intraparenchymal hemorrhage. No evidence of mass, midline shift, or CT findings of infarction. Whittaker-white differentiation is distinct. Extraaxial Spaces: Normal for age. No subdural or epidural collections identified. Ventricles: Normal in size and position. Sinuses and Orbits: Imaged paranasal sinuses, orbits, and mastoids show no significant abnormality. Bones: No evidence of fracture or calvarial defect. Other: None. IMPRESSION: Normal head CT. No intracranial hemorrhage, mass effect, or other acute abnormality. EXAM: CHEST RADIOGRAPHY EXAM DATE: 04/14/2018 01:07 PM. CLINICAL HISTORY: Cough fever. COMPARISON: 04/13/2018. TECHNIQUE: 1 view. FINDINGS: Lungs/Pleura: Lung volumes appear normal. No consolidative process. No pulmonary edema or pneumothorax. Mediastinum: Within exam limitations, the cardiomediastinal contour is normal. Other: None. IMPRESSION: No developing focal pneumonia. EXAM: CHEST RADIOGRAPHY EXAM DATE: 04/14/2018 02:16 PM. CLINICAL HISTORY: Status post line placement. COMPARISON: 1257 hrs. Today. TECHNIQUE: 1 view. FINDINGS: Lungs/Pleura: Mild patchy opacities throughout both lungs. No peripheral interstitial abnormality. No pneumothorax or gross pleural fluid. Mediastinum: Within exam limitations, the cardiomediastinal contour is normal. Right IJ catheter with its tip at the superior cavoatrial junction. Other: None. IMPRESSION: 1. Right IJ catheter at the superior cavoatrial junction. 2. No pneumothorax. 3. Mild patchy opacities throughout both lungs suggesting multifocal pneumonitis. EXAM: Chest 1 View X-Ray DATE: 04/15/2018 9:09 AM CLINICAL HISTORY: opacities on line placement film COMPARISON: 04/14/2018 TECHNIQUE: Single view of the chest. FINDINGS: Lungs/Pleura: The lungs are better aerated. No focal infiltrate, effusion, or pneumothorax. Mediastinum: Within exam limitations, cardiomediastinal contour is normal. Other: Right jugular catheter terminating in the distal superior vena cava. IMPRESSION: No evidence of acute cardiopulmonary disease. - FOLLOW UP Follow Up: Follow-up with Noy Ortiz next week. Follow-up with Dr. Feliz next week. - TIME SPENT Time Spent in Discharge (Minutes): 35
== END 2018-04-16 12:15 | disposition home or self-care (01) | DRG 871 ==
LOC: EDUNIT# → ED 11:34 → ICU 15:24 → MS2 04-15 18:32
PROVIDERS: ADMIT Hospitalist; ATTEND Hospitalist
PROC: 30243N1 Transfusion of Nonautologous Red Blood Cells into Central Vein, Percutaneous Approach (ICD-10-PCS; principal; 2018-04-15)
DX: A41.9 Sepsis, unspecified organism (principal); R65.21 Severe sepsis with septic shock; C79.51 Secondary malignant neoplasm of bone; C50.919 Malignant neoplasm of unspecified site of unspecified female breast; G89.3 Neoplasm related pain (acute) (chronic); D64.9 Anemia, unspecified; E78.5 Hyperlipidemia, unspecified; F41.9 Anxiety disorder, unspecified; F32.9 Major depressive disorder, single episode, unspecified; J30.9 Allergic rhinitis, unspecified; I25.10 Atherosclerotic heart disease of native coronary artery without angina pectoris; I10 Essential (primary) hypertension; M19.90 Unspecified osteoarthritis, unspecified site; J32.9 Chronic sinusitis, unspecified; Z66 Do not resuscitate; Z51.5 Encounter for palliative care; Z79.82 Long term (current) use of aspirin; Z79.891 Long term (current) use of opiate analgesic; Z79.51 Long term (current) use of inhaled steroids; Z79.52 Long term (current) use of systemic steroids; Z79.899 Other long term (current) drug therapy; Z96.659 Presence of unspecified artificial knee joint; Z87.19 Personal history of other diseases of the digestive system; Z87.440 Personal history of urinary (tract) infections
CPT/HCPCS: 36415; 70450; 71045; 80048; 80053; 80202; 81001; 81003; 82553; 83605; 83690; 83735; 84100; 85014; 85018; 85025; 85610; 85730; 86850; 86900; 86901; 86920; 87040; 87070; 87086; 87150; 87205; 96365; 96375; 99284; 99291

== ENCOUNTER 2018-04-25 09:26 | Outpatient (CLI) | payer OTHER, MEDICARE ==
[2018-04-25 18:46] LABS: CHOL/HDL RATIO 2.9 (<4.4); CHOLESTEROL 114 mg/dL; HDL CHOLESTEROL 40 mg/dL; LDL CHOLESTEROL,CALCULATED 50 mg/dL; LDL/HDL RATIO 1.3 (<4.4); VLDL CHOLESTEROL 24 mg/dL
== END 2018-04-25 09:27 | disposition home or self-care (01) ==
LOC: LAB.F 09:26
PROVIDERS: ATTEND Internal Medicine Cardiovascular Disease
DX: E78.4 Other hyperlipidemia (principal)
CPT/HCPCS: 36415; 80061; 83721

== ENCOUNTER 2018-05-03 11:26 | Outpatient (CLI) | payer OTHER, MEDICARE ==
[2018-05-03 11:46] LABS: CALCIUM 10.2 mg/dL (8.5-10.3); CREATININE 1.2 mg/dL (0.4-1.0)
== END 2018-05-03 11:27 | disposition home or self-care (01) ==
LOC: LAB 11:26
PROVIDERS: ATTEND Nurse Practitioner Adult Health
DX: Z79.899 Other long term (current) drug therapy (principal)
CPT/HCPCS: 36415; 80048

== ENCOUNTER 2018-05-03 11:37 | Outpatient (CLI) | payer MEDICARE, OTHER | END 2018-05-03 11:38 | disposition home or self-care (01) | LOC: RT 11:37 | PROVIDERS: ATTEND Nurse Practitioner Adult Health | DX: Z79.899 Other long term (current) drug therapy (principal) | CPT/HCPCS: 93005 ==

== ENCOUNTER 2018-05-10 15:35 | Outpatient (CLI) | payer OTHER, MEDICARE | END 2018-05-10 15:36 | disposition critical access hospital (66) | LOC: EMS 15:35 | PROVIDERS: ATTEND Surgery | DX: R47.9 Unspecified speech disturbances (principal) | CPT/HCPCS: A0425; A0429 ==

== ENCOUNTER 2018-05-10 15:38 | Observation (INO) | payer OTHER, MEDICARE ==
[2018-05-10 16:14] LABS: EOSINOPHILS # (AUTO) 0.3 10^3/uL (0.0-0.7); EOSINOPHILS % (AUTO) 8.6 %; HGB - HEMOGLOBIN 9.6 g/dL (12.0-16.0); LYMPHOCYTES # (AUTO) 0.7 10^3/uL (1.5-3.5); LYMPHOCYTES % (AUTO) 20.2 %; MEAN CORPUSCULAR HEMOGLOBIN 32.7 pg (27.0-31.0); MEAN CORPUSCULAR HGB CONC 32.7 g/dL (32.0-36.0); MEAN PLATELET VOLUME 5.7 fL (7.9-10.8); MONOCYTES # (AUTO) 0.5 10^3/uL (0.0-1.0); MONOCYTES % (AUTO) 15.2 %; NEUTROPHILS # (AUTO) 1.9 10^3/uL (1.5-6.6); PLT - PLATELET COUNT 227 10^3/uL (130-450); PT - PROTHROMBIN TIME 11.5 secs (9.9-12.6); RED BLOOD COUNT 2.95 10^6/uL (4.20-5.40); WHITE BLOOD COUNT 3.4 x10^3/uL (4.8-10.8)
[2018-05-10 16:25] LABS: ALBUMIN 2.9 g/dL (3.2-5.5); ALBUMIN/GLOBULIN RATIO 1.2 (1.0-2.2); BILIRUBIN,TOTAL 0.5 mg/dL (0.2-1.0); CALCIUM 9.4 mg/dL (8.5-10.3); CREATININE 1.3 mg/dL (0.4-1.0); TOTAL PROTEIN 5.4 g/dL (6.7-8.2)
--- NOTE | 2018-05-10 16:25 | CT Report ---
Procedure Date: 05/10/2018 Accession Number: [id number] / [id number] Procedure: CT - Head W/O Stroke Protocol CPT Code: FULL RESULT: EXAM: CT HEAD EXAM DATE: 05/10/2018 04:14 PM. CLINICAL HISTORY: Slurred speech, vision loss. History of metastatic breast cancer. COMPARISON: CT head without contrast 04/14/2018. TECHNIQUE: Multiaxial CT images were obtained from the foramen magnum to the vertex. Reformats: Coronal IV contrast: None. In accordance with CT protocol optimization, one or more of the following dose reduction techniques were utilized for this exam: automated exposure control, adjustment of mA and/or KV based on patient size, or use of iterative reconstructive technique. FINDINGS: Parenchyma: No intraparenchymal hemorrhage. No evidence of mass, midline shift, or CT findings of acute infarction. Whittaker-white differentiation is distinct. Extraaxial Spaces: Normal for age. No subdural or epidural collections identified. Ventricles: Normal in size and position. Sinuses and Orbits: Imaged paranasal sinuses, orbits, and mastoids show no significant abnormality. Bones: No evidence of fracture or calvarial defect. Other: None. IMPRESSION: No acute intracranial abnormality. [facility] The call report notification system was initiated by Dr. Shiraz Mccloud at 16:22 hrs on 05/10/18. The above findings were discussed with Hubert Hamilton by Dr. Shiraz Mccloud at 16:23 hrs on 05/10/18.
[2018-05-10 17:03] LABS: DIFFERENTIAL COMMENT MANUAL=AUTO DIFF; PLATELET ESTIMATE, MANUAL NORMAL (130-450,000) (NORMAL); PLATELET MORPHOLOGY NORMAL APPEARANCE (NORMAL)
[2018-05-10 17:37] LABS: BILIRUBIN,URINE NEGATIVE (NEGATIVE); GLUCOSE, URINE (UA) NEGATIVE (NEGATIVE); KETONES,URINE (UA) NEGATIVE (NEGATIVE); LEUKOCYTE ESTERASE, URINE NEGATIVE (NEGATIVE); NITRITE,URINE NEGATIVE (NEGATIVE); OCCULT BLOOD,URINE NEGATIVE (NEGATIVE); PROTEIN,URINE NEGATIVE (NEGATIVE); UROBILINOGEN,URINE 0.2 (NORMAL) E.U./dL (NORMAL)
[2018-05-10 17:38] LABS: CLARITY,URINE CLEAR (CLEAR)
--- NOTE | 2018-05-10 17:45 | ED Physician Documentation ---
PD HPI FOCAL NEURO - Stated complaint Stated Complaint: POSS TIA - Chief complaint Chief Complaint: Neuro - History obtained from History obtained from: Patient, Family - History of Present Illness Timing - onset: How many hours ago (2) Timing - duration: Hours (2) Timing - details: Abrupt onset Severity of deficit: Mild Weakness: No: Face, Arm, Hand, Leg, Foot, Right, Left Numbness: No: Face, Arm, Hand, Leg, Foot, Right, Left Associated symptoms: Other (states her L eye lost vision and she had slurred speech. improved now.) - Additional information Additional information: Patient is a 68-year-old female who presents to the emergency department with slurred speech and loss of vision in her left eye. This occurred approximately 2 hours prior to arrival and is resolved now. She is on methadone and gabapentin. She normally takes a nap around this time in the afternoon and feels very drowsy. No fevers. No trauma. Has a history of metastatic breast cancer with metastases to the bone. No brain metastases that they know of. Review of Systems Ten Systems: 10 systems reviewed and negative Constitutional: denies: Fever, Chills Ears: denies: Ear pain Nose: denies: Rhinorrhea / runny nose, Congestion Respiratory: denies: Cough, Wheezing GI: denies: Abdominal Pain, Vomiting, Diarrhea Skin: denies: Rash Musculoskeletal: denies: Neck pain, Back pain PD PAST MEDICAL HISTORY - Past Medical History Past Medical History: Yes Cardiovascular: Congestive heart failure, Hypertension Respiratory: None Neuro: Headaches, Peripheral neuropathy, Tremors Endocrine/Autoimmune: None, HyPOthyroidism GI: Diverticulitis : Chronic bladder infection, Kidney stones HEENT: Chronic hearing loss Psych: Depression, Anxiety Musculoskeletal: Osteoarthritis Derm: Eczema - Past Surgical History Past Surgical History: Yes General: Bowel surgery, Colonoscopy Ortho: Knee replacement Cardiovascular: Coronary stent - Present Medications Home Medications: Ambulatory Orders Medication Instructions Recorded Confirmed Polyethylene Glycol 3350 [Miralax] 0.5 cap PO DAILY 03/26/15 05/10/18 Ondansetron HCl [Zofran] 4 mg PO TID PRN 11/15/15 05/10/18 Carvedilol 3.125 mg PO BID 03/30/17 05/10/18 Nitroglycerin 0.4 mg SL Q5M PRN 04/27/17 05/10/18 Biotin 5,000 mcg PO TID 05/06/17 05/10/18 Best Cit/Mag/D3/Zn/Service Correspondent/Yahir/Bor 2 tab PO BID 05/06/17 05/10/18 [Citracal-Vit D + Magnesium Tab] Cholecalciferol [Vitamin D3] 5,000 unit PO DAILY 05/06/17 05/10/18 Fexofenadine HCl 180 mg PO DAILY PRN 05/06/17 05/10/18 Guaifenesin [Mucinex] 800 mg PO BID PRN 05/06/17 05/10/18 Sennosides [Senna Lax] 1 tab PO BID 05/06/17 05/10/18 Calcium Carbonate [Tums (Calcium 500 mg PO PRN PRN 12/07/17 05/10/18 Carbonate 500mg)] Fluticasone [Flonase] 1 spray INH DAILY PRN 12/07/17 05/10/18 L.acid/L.casei/B.bif/B.dieter/Fos 2 cap PO BID 12/07/17 05/10/18 [Probiotic Blend Capsule] D-Manose 500 mg PO BID 01/04/18 05/10/18 Losartan Potassium 12.5 mg PO DAILY 01/28/18 05/10/18 Atorvastatin Calcium 40 mg PO QPM 04/14/18 05/10/18 Capecitabine [Xeloda] 1,500 mg PO BID 04/15/18 05/10/18 Capecitabine [Xeloda] 300 mg PO BID 04/15/18 05/10/18 Furosemide 40 mg PO PRN PRN 05/03/18 05/10/18 Aspirin [Aspirin EC] 81 mg PO DAILY 05/10/18 05/10/18 Escitalopram Oxalate [Lexapro] 20 mg PO DAILY 05/10/18 05/10/18 Gabapentin [Neurontin] 100 mg PO 0400,1200,199905/10/18 05/10/18 Gabapentin [Neurontin] 600 mg PO 0400,1200,199905/10/18 05/10/18 Isosorbide Mononitrate [Isosorbide 60 mg PO DAILY 05/10/18 05/10/18 Mononitrate ER] Loratadine [Claritin] 10 mg PO DAILY PRN 05/10/18 05/10/18 Methadone HCl 30 mg PO 0400,1200,2000 05/10/18 05/10/18 Omeprazole 40 mg PO QDAC 05/10/18 05/10/18 Oxycodone HCl 20 - 40 mg PO Q3H PRN MDD 240MG 05/10/18 05/10/18 - Allergies Allergies/Adverse Reactions: Allergies Allergy/AdvReac Type Severity Reaction Status Date / Time oxaprozin [From Daypro] Allergy Intermediate Rash Verified 04/14/18 11:42 sulfamethoxazole Allergy Intermediate Rash Verified 04/14/18 11:42 [From Septra] codeine [Codeine] AdvReac Mild Cramps Verified 04/14/18 11:42 erythromycin base AdvReac Mild Cramps Verified 04/14/18 15:57 [Erythromycin Base] meperidine AdvReac Mild Anxiety Verified 04/14/18 15:57 minocycline [Minocycline] AdvReac Mild Cramps Verified 04/14/18 15:57 - Social History Does the pt smoke?: No Smoking Status: Never smoker Does the pt drink ETOH?: Yes Does the pt have substance abuse?: No - Immunizations Immunizations are current?: Yes - POLST Patient has POLST: Yes POLST Status: Limited Interventions PD ED PE NORMAL - Vitals Vital signs reviewed: Yes - General General: No acute distress, Well developed/nourished, Other (drowsy, but arousable, oriented x 3) - HEENT HEENT: Atraumatic, PERRL, EOMI, Moist mucous membranes, Pharynx benign - Neck Neck: Supple, no meningeal sign - Cardiac Cardiac: RRR, Strong equal pulses - Respiratory Respiratory: No respiratory distress, Clear bilaterally - Abdomen Abdomen: Soft, Non tender, Non distended - Derm Derm: Warm and dry, No rash - Extremities Extremities: No calf tenderness / cord - Neuro 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: 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, No motor deficit, No sensory deficit, Normal speech - Psych Psych: Normal mood, Normal affect NIHSS - Time Time: 15:40 - Level of Consciousness Level of consciousness: (1) Not alert, but arousable by minor stimulation to obey, or answer LOC Questions: (0) Answers both Q's correct LOC Commands: (1) Performs one correctly - Gaze Best Gaze: (0) Normal - Visual Visual: (0) No loss - Facial Palsy Facial Palsy: (0) Normal, symmetrical movement - Motor Arms (both separate) Motor Arm (right): (0) No drift Motor Arm (left): (0) No drift - Motor Legs (both separate) Motor Leg (right): (0) No drift Motor Leg (left): (0) No drift - Limb Ataxia Limb Ataxia: (0) Absent - Sensory Sensory: (0) Normal - Best Language Best Language: (0) No aphasia - Dysarthria Dysarthria: (1) [id number] dysarthria - Extinction and Inattention (formally neg Extinction and inattention: (0) No abnormality - Total Score/Results Total Score/Result: 3 Results - Vitals Vitals: Vital Signs - 24 hr 05/10/18 05/10/18 15:43 17:31 Temperature 98.2 C H Heart Rate 72 71 Respiratory 14 14 Rate Blood Pressure 117/75 96/66 O2 Saturation 97 99 Oxygen O2 Source Room air - EKG (time done) 1621 Rate: Rate (enter#) (71) Rhythm: NSR [place]: Normal Intervals: Normal NM QRS: Normal Ischemia: Normal ST segments - Labs Labs: Laboratory Tests 05/10/18 05/10/18 05/10/18 16:05 16:05 16:05 WBC 3.4 L RBC 2.95 L Hgb 9.6 L Hct 29.4 L MCV 100.0 H MCH 32.7 H MCHC 32.7 RDW 22.0 H Plt Count 227 MPV 5.7 L Neut # (Auto) 1.9 Lymph # (Auto) 0.7 L [place] # (Auto) 0.5 Eos # (Auto) 0.3 Baso # (Auto) 0.0 Absolute Nucleated RBC 0.01 Band Neuts % (Manual) Not Reportable Abnorm Lymph % (Manual) Not Reportable Nucleated RBC % 0.2 Neutrophils # (Manual) Not Reportable Lymphocytes # (Manual) Not Reportable Monocytes # (Manual) Not Reportable Eosinophils # (Manual) Not Reportable Basophils # (Manual) Not Reportable Differential Comment MANUAL=AUTO DIFF Manual Slide Review Indicated Platelet Estimate NORMAL (130-450,000) Platelet Morphology NORMAL APPEARANCE RBC Morph Micro Appear 1+ CATIA CELLS PT 11.5 INR 1.0 APTT 28.6 Sodium 137 Potassium 4.3 Chloride 99 L Carbon Dioxide 31 Anion Gap 7.0 BUN 19 Creatinine 1.3 H Estimated GFR (MDRD) 41 L Glucose 91 Calcium 9.4 Total Bilirubin 0.5 AST 20 ALT 13 Alkaline Phosphatase 55 Total Protein 5.4 L Albumin 2.9 L Globulin 2.5 Albumin/Globulin Ratio 1.2 Lipase 21 L Urine Color Urine Clarity Urine pH Ur Specific [place] Urine Protein Urine Glucose (UA) Urine Ketones Urine Occult Blood Urine Nitrite Urine Bilirubin Urine Urobilinogen Ur Leukocyte Esterase Ur Microscopic Review Urine Culture Comments 05/10/18 17:20 WBC RBC Hgb Hct MCV MCH MCHC RDW Plt Count MPV Neut # (Auto) Lymph # (Auto) [place] # (Auto) Eos # (Auto) Baso # (Auto) Absolute Nucleated RBC Band Neuts % (Manual) Abnorm Lymph % (Manual) Nucleated RBC % Neutrophils # (Manual) Lymphocytes # (Manual) Monocytes # (Manual) Eosinophils # (Manual) Basophils # (Manual) Differential Comment Manual Slide Review Platelet Estimate Platelet Morphology RBC Morph Micro Appear PT INR APTT Sodium Potassium Chloride Carbon Dioxide Anion Gap BUN Creatinine Estimated GFR (MDRD) Glucose Calcium Total Bilirubin AST ALT Alkaline Phosphatase Total Protein Albumin Globulin Albumin/Globulin Ratio Lipase Urine Color YELLOW Urine Clarity CLEAR Urine pH 6.0 Ur Specific [place] 1.015 Urine Protein NEGATIVE Urine Glucose (UA) NEGATIVE Urine Ketones NEGATIVE Urine Occult Blood NEGATIVE Urine Nitrite NEGATIVE Urine Bilirubin NEGATIVE Urine Urobilinogen 0.2 (NORMAL) Ur Leukocyte Esterase NEGATIVE Ur Microscopic Review NOT INDICATED Urine Culture Comments NOT INDICATED - Rads (name of study) head Ct Radiology: Prelim report reviewed, EMP read contemporaneously, See rad report ( no acute findings) PD MEDICAL DECISION MAKING - ED course Complexity details: reviewed old records, reviewed results, re-evaluated patient , considered differential, d/w patient, d/w family, d/w business system consultant ED course: Patient is a 68-year-old female who presents to the emergency department what appears to be a TIA today. She does have a history of metastatic cancer as well. Possible brain metastases? No acute findings on head CT. We will place the patient in observation for further care. Discussed the case with Dr. Leiva , hospitalist who accepts. This document was made in part using voice recognition software. While efforts are made to proofread this document, sound alike and grammatical errors may occur. - Sepsis Event Vital Signs: Vital Signs - 24 hr 05/10/18 05/10/18 15:43 17:31 Temperature 98.2 C H Heart Rate 72 71 Respiratory 14 14 Rate Blood Pressure 117/75 96/66 O2 Saturation 97 99 Oxygen O2 Source Room air Departure - Departure Disposition: ED Place in Observation Clinical Impression: TIA (transient ischemic attack) Condition: Good Discharge Date/Time: 05/10/18 18:46
[2018-05-10] MEDS ORDERED: TEMAZEPAM 15 MG CAPSULE PO PRN (18:15)
[2018-05-10] MEDS: SODIUM CHLORIDE FLUSH 0.9% 10 ML SYRINGE IVP PRN (19:54)
[2018-05-10] MEDS: D5.45NS W/20 MEQ KCL 1,000 ML IV SCH (19:54)
[2018-05-10] MEDS ORDERED: MIN OIL/DIMETHICON/COCONUT OIL 92 GM TUBE TOP PRN (21:37)
[2018-05-11] MEDS: SODIUM CHLORIDE FLUSH 0.9% 10 ML SYRINGE IVP SCH ×3 (01:13→18:16)
[2018-05-11] MEDS ORDERED: MORPHINE 2 MG/ML SYRINGE IVP PRN ×2 (01:13→15:10)
[2018-05-11] MEDS: MORPHINE 2 MG/ML SYRINGE IVP PRN ×4 (02:00→15:12)
[2018-05-11] MEDS: SODIUM CHLORIDE FLUSH 0.9% 10 ML SYRINGE IVP PRN ×3 (02:01→21:41)
[2018-05-11] MEDS ORDERED: METHADONE HCL PO SCH (04:00)
[2018-05-11 05:50] LABS: HGB - HEMOGLOBIN 8.9 g/dL (12.0-16.0); MEAN CORPUSCULAR HEMOGLOBIN 32.5 pg (27.0-31.0); MEAN CORPUSCULAR HGB CONC 32.5 g/dL (32.0-36.0); MEAN PLATELET VOLUME 5.7 fL (7.9-10.8); RED BLOOD COUNT 2.74 10^6/uL (4.20-5.40); RED CELL DISTRIBUTION WIDTH 21.6 % (12.0-15.0); WHITE BLOOD COUNT 2.6 x10^3/uL (4.8-10.8)
[2018-05-11 05:57] LABS: CALCIUM 8.7 mg/dL (8.5-10.3); CREATININE 1.1 mg/dL (0.4-1.0)
[2018-05-11] MEDS: D5.45NS W/20 MEQ KCL 1,000 ML IV SCH ×2 (06:16→18:16)
[2018-05-11] MEDS ORDERED: NITROGLYCERIN SL 0.4 MG TABLET SL PRN (08:05)
[2018-05-11] MEDS ORDERED: ONDANSETRON ODT 4 MG TABLET TL PRN (08:05)
[2018-05-11] MEDS ORDERED: oxyCODONE 30 MG TABLET PO PRN (08:11)
--- NOTE | 2018-05-11 08:25 | HISTORY & PHYSICAL EXAMINATION ---
Chief Complaint - Chief Complaint Chief Complaint: loss of right sided vision History of Present Illness - Admitted From Admitted From:: Home - History Obtained From History obtained from: Pt's partner, ED physician - History of Present Illness HPI Comment/Other: Mrs. Janell Winters is a 68-year-old female with a history of metastatic breast cancer, currently on chemotherapy with Xeloda, and a history significant for chronic sinusitis, chf, hypothyroidism, depression, anxiety, angina, and coronary artery disease. She Is known to me because I admitted her last month with sepsis. Earlier today she called her partner, who is a nurse, and said that she was having difficulty with her vision, and could not see out of the right side. She was taken by ambulance to the emergency department where she was found to be exhibiting an altered level of consciousness and she has been somnolent since that time. A CAT scan of the head done in the emergency department was negative for any acute pathology. She will be admitted for a full neurologic workup. History - Past Medical History Cardiovascular: reports: Congestive heart failure, Hypertension Respiratory: reports: None Neuro: reports: Headaches, Peripheral neuropathy, Tremors Endocrine/Autoimmune: reports: None, HyPOthyroidism GI: reports: Diverticulitis BUSINESS LIBRARIAN: reports: Breast cancer (stage 4) : reports: Chronic bladder infection, Kidney stones HEENT: reports: Chronic hearing loss Psych: reports: Depression, Anxiety Musculoskeletal: reports: Osteoarthritis Derm: reports: Eczema MRSA Hx?: No - Past Surgical History General: reports: Bowel surgery, Colonoscopy Ortho: reports: Knee replacement Cardiovascular: reports: Coronary stent - Family & Social History Family History: Mother: , Cancer, Father: , Cancer, [place] Family History Comment/Other: There is reportedly extensive alcoholism throughout the patient's family Living arrangement: At home Living Situation: With spouse/s.o. - Substance History Use: Uses substance without health or social issues: NONE Abuse: Recurrent use of substance despite neg consequences: NONE Dependence: Experiences withdrawal or developed tolerances: NONE - POLST Patient has POLST: Yes POLST Status: DNR Meds/Allgy - Home Medications Home Medications: Ambulatory Orders Medication Instructions Recorded Confirmed Polyethylene Glycol 3350 [Miralax] 0.5 cap PO DAILY 03/26/15 05/10/18 Ondansetron HCl [Zofran] 4 mg PO TID PRN 11/15/15 05/10/18 Carvedilol 3.125 mg PO BID 03/30/17 05/10/18 Nitroglycerin 0.4 mg SL Q5M PRN 04/27/17 05/10/18 Biotin 5,000 mcg PO TID 05/06/17 05/10/18 Best Cit/Mag/D3/Zn/Balancing Machine Operator/Yahir/Bor 2 tab PO BID 05/06/17 05/10/18 [Citracal-Vit D + Magnesium Tab] Cholecalciferol [Vitamin D3] 5,000 unit PO DAILY 05/06/17 05/10/18 Fexofenadine HCl 180 mg PO DAILY PRN 05/06/17 05/10/18 Guaifenesin [Mucinex] 800 mg PO BID PRN 05/06/17 05/10/18 Sennosides [Senna Lax] 1 tab PO BID 05/06/17 05/10/18 Calcium Carbonate [Tums (Calcium 500 mg PO PRN PRN 12/07/17 05/10/18 Carbonate 500mg)] Fluticasone [Flonase] 1 spray INH DAILY PRN 12/07/17 05/10/18 L.acid/L.casei/B.bif/B.dieter/Fos 2 cap PO BID 12/07/17 05/10/18 [Probiotic Blend Capsule] D-Manose 500 mg PO BID 01/04/18 05/10/18 Losartan Potassium 12.5 mg PO DAILY 01/28/18 05/10/18 Atorvastatin Calcium 40 mg PO QPM 04/14/18 05/10/18 Capecitabine [Xeloda] 1,500 mg PO BID 04/15/18 05/10/18 Capecitabine [Xeloda] 300 mg PO BID 04/15/18 05/10/18 Furosemide 40 mg PO PRN PRN 05/03/18 05/10/18 Aspirin [Aspirin EC] 81 mg PO DAILY 05/10/18 05/10/18 Escitalopram Oxalate [Lexapro] 20 mg PO DAILY 05/10/18 05/10/18 Gabapentin [Neurontin] 100 mg PO 0400,1200,199905/10/18 05/10/18 Gabapentin [Neurontin] 600 mg PO 0400,1200,199905/10/18 05/10/18 Isosorbide Mononitrate [Isosorbide 60 mg PO DAILY 05/10/18 05/10/18 Mononitrate ER] Loratadine [Claritin] 10 mg PO DAILY PRN 05/10/18 05/10/18 Methadone HCl 30 mg PO 0400,1200,2000 05/10/18 05/10/18 Omeprazole 40 mg PO QDAC 05/10/18 05/10/18 Oxycodone HCl 20 - 40 mg PO Q3H PRN MDD 240MG 05/10/18 05/10/18 - Allergies Allergies/Adverse Reactions: Allergies Allergy/AdvReac Type Severity Reaction Status Date / Time oxaprozin [From Daypro] Allergy Intermediate Rash Verified 04/14/18 11:42 sulfamethoxazole Allergy Intermediate Rash Verified 04/14/18 11:42 [From Septra] codeine [Codeine] AdvReac Mild Cramps Verified 04/14/18 11:42 erythromycin base AdvReac Mild Cramps Verified 04/14/18 15:57 [Erythromycin Base] meperidine AdvReac Mild Anxiety Verified 04/14/18 15:57 minocycline [Minocycline] AdvReac Mild Cramps Verified 04/14/18 15:57 Review of Systems - Constitutional Constitutional: reports: Weakness. denies: Fever, Chills, Diaphoresis, Night sweats - Eyes Eyes: reports: Blurred vision, Field loss, Vision loss. denies: Pain, Irritation - Ears, Nose & Throat Ears, Nose & Throat: denies: Ear pain, Hearing loss, Hearing aids, Tinnitus, Vertigo, Nasal pain, Nasal discharge, Nosebleeds - Cardiovascular Cariovascular: denies: Irregular heart rate, Palpitations, Chest pain, Edema, Syncope - Respiratory Respiratory: denies: Cough, Sputum production, Wheezing, Snoring, Hemoptysis - Gastrointestinal Gastrointestinal: denies: Abdominal pain, Abdominal distention, Constipation, Diarrhea, Rectal bleeding - Genitourinary Genitourinary: denies: Dysuria, Frequency, Urgency, Hematuria - Musculoskeletal Musculoskeletal: denies: Muscle pain, Back pain, Muscle aches, Stiffness - Integumentary Integumentary: denies: Rash, Pruritis, Lesions, Dryness - Neurological Neurological: reports: Focal weakness (Right sided), Headache. denies: General weakness - Psychiatric Psychiatric: denies: Depression, Anxiety, Suicidal, Hallucinations - Endocrine Endocrine: denies: Polyuria, Polydypsia, Polyphagia - Hematologic/Lymphatic Hematologic/Lymphatic: denies: Anemia, Bruising, Petechiae, Lymphadenopathy - All Other Systems All Other Systems: reports: Reviewed and negative Exam - Vital Signs Reviewed Vital Signs: Yes Vital Signs: Vital Signs x48h Temp Pulse Resp BP BP Pulse Ox 05/11/18 08:13 36.3 C L 82 16 100/51 L 96 05/11/18 05:46 91 16 109/50 L 05/11/18 04:12 68 87/36 L 05/11/18 03:50 36.6 C 70 17 70/29 L 95 05/11/18 01:59 37.1 C 69 14 96/59 L 95 - Physical Exam General Appearance: positive: No acute distress, Lethargic Eyes Bilateral: positive: Normal inspection, EOMI, No lid inflammation, Conjunctivae nml, No scleral icterus ENT: positive: ENT inspection nml, Pharynx nml, No signs of dehydration Neck: positive: Nml inspection, Thyroid nml, No JVD, Trachea midline. negative : Thyromegaly Respiratory: positive: Chest non-tender, No respiratory distress, Breath sounds nml. negative: Wheezes, Rales, Rhonchi Cardiovascular: positive: Regular rate & rhythm, No murmur, No gallop Peripheral Pulses: positive: 1+ Abdomen: positive: Non-tender, No organomegaly, Nml bowel sounds, No distention. negative: Guarding, Rebound Back: positive: Nml inspection. negative: CVA tenderness (R), CVA tenderness (L ) Skin: positive: Color nml, No rash, Warm, Dry. negative: Cyanosis Extremities: positive: Non-tender, Nml appearance, No pedal edema. negative: Full ROM Neurologic/Psychiatric: positive: Oriented x3, Weakness, Slurred/abnml speech. negative: Motor nml Conclusion/Plan - Problem List (1) Altered level of consciousness Conclusion/Plan: The patient has a history of having had right-sided hemianopsia with right- sided weakness and then an altered level of consciousness. This is strongly suspicious for a cerebrovascular accident however the CT was negative. We will repeat an echocardiogram, an MRA of her neck and a brain MRI to rule out a stroke. During her previous hospitalization last month we had a long conversation in which both the patient and her spouse agreed that if she were to have brain metastasis or stroke she would want hospice care. We will investigate this further. (2) Allergic rhinitis Conclusion/Plan: Patient takes fexofenadine and fluticasone for her allergic rhinitis. We will continue this while she is inpatient. (3) Anxiety and depression Conclusion/Plan: The patient takes Lexapro at home and we will continue this while she is inpatient. (4) Breast cancer metastasized to bone Conclusion/Plan: The patient has widespread bony metastasis from her breast cancer. Her spouse describes it as being "everywhere except for distal to her elbows and knees. We will continue with her home pain medication regimen. (5) Chronic pain due to malignant neoplastic disease Conclusion/Plan: The patient is on methadone and oxycodone which has been effective for her bony pain. We will continue this while she is inpatient however when he has some difficulty giving her methadone as she is having difficulty swallowing at this time. We will investigate parenteral methadone. (6) Coronary artery disease Conclusion/Plan: The patient has a history of an NSTEMI with stenting 1 year ago. We will continue daily aspirin, atorvastatin, and isosorbide.. (7) Hyperlipidemia Conclusion/Plan: Resume yearly well-managed, we will continue atorvastatin. - Lab Results Fish Bones: 05/11/18 05:38 05/11/18 05:38 - Diagnostic Imaging Results Diagnostic Imaging Results: positive: Final report reviewed Diagnostic Imaging Results Comments: EXAM: CT HEAD EXAM DATE: 05/10/2018 04:14 PM. CLINICAL HISTORY: Slurred speech, vision loss. History of metastatic breast cancer. COMPARISON: CT head without contrast 04/14/2018. TECHNIQUE: Multiaxial CT images were obtained from the foramen magnum to the vertex. Reformats: Coronal IV contrast: None. In accordance with CT protocol optimization, one or more of the following dose reduction techniques were utilized for this exam: automated exposure control, adjustment of mA and/or KV based on patient size, or use of iterative reconstructive technique. FINDINGS: Parenchyma: No intraparenchymal hemorrhage. No evidence of mass, midline shift, or CT findings of acute infarction. Whittaker-white differentiation is distinct. Extraaxial Spaces: Normal for age. No subdural or epidural collections identified. Ventricles: Normal in size and position. Sinuses and Orbits: Imaged paranasal sinuses, orbits, and mastoids show no significant abnormality. Bones: No evidence of fracture or calvarial defect. Other: None. IMPRESSION: No acute intracranial abnormality. Core Measures - Anticipated LOS I expect patient to be DC'd or transferred within 96 hours.: Yes - DVT/VTE - Prophylaxis VTE/DVT Device ordered at admit?: Yes
[2018-05-11] MEDS: ASPIRIN EC 81 MG TABLET PO SCH (10:31)
[2018-05-11] MEDS: CARVEDILOL 3.125 MG TABLET PO SCH ×2 (10:33→22:25)
[2018-05-11] MEDS: [UNRECOGNIZED DRUG - OTHER] PO SCH ×2 (10:33→22:25)
[2018-05-11] MEDS: D MANNOSE 500 MG PO SCH ×2 (10:33→22:25)
[2018-05-11] MEDS: ISOSORBIDE MONONITRATE ER 30 MG TABLET PO SCH (10:33)
[2018-05-11] MEDS: POLYETHYLENE GLYCOL 3350 17 GM PACKET PO SCH (10:34)
[2018-05-11] MEDS: LOSARTAN 50 MG TABLET PO SCH (10:34)
[2018-05-11] MEDS: MORPHINE 2 MG/ML SYRINGE IVP SCH ×4 (10:56→21:40)
[2018-05-11] MEDS ORDERED: GADOBUTROL 10 MMOL/10 ML VIAL ONE (12:09)
[2018-05-11] MEDS: LORazepam 2 MG/ML VIAL IVP PRN (13:15)
[2018-05-11] MEDS ORDERED: GADOBUTROL 10 MMOL/10 ML VIAL IVP ONE (14:15)
--- NOTE | 2018-05-11 15:41 | MRI Report ---
Procedure Date: 05/11/2018 Accession Number: [id number] / [id number] Procedure: MRI - Brain W/WO CPT Code: FULL RESULT: EXAM: MRI BRAIN WITHOUT AND WITH CONTRAST EXAM DATE: 05/11/2018 02:00 PM. CLINICAL HISTORY: Altered mental status. COMPARISON: CT scan of the head without contrast 05/10/2018 and 04/14/2018. TECHNIQUE: Multiplanar, multisequence T1-weighted and fluid-sensitive MR sequences of the brain were performed. Sequences optimized for routine evaluation. Other: None. IV Contrast: 5 mL Gadavist. FINDINGS: There is diffusion restriction demonstrated within the left mesial temporal lobe, left hippocampus, posterior limb of the left internal capsule, right caudate nucleus, right anterior limb of the internal capsule, and the ventral right putamen. These would be consistent with areas of acute to subacute cerebral infarction. Recommend correlation with the patient's clinical symptoms. Grossly there does not appear to be overt hemorrhagic transformation within these areas of cerebral infarction. The images are degraded by motion. The corpus callosum is of normal size and configuration. The pituitary and sella are normal. The craniocervical junction is normal. The cerebral vascular flow voids are patent. The FLAIR images demonstrate a few punctate T2 hyperintensities within the subcortical, deep, and periventricular white matter. This is consistent with a mild degree of chronic small vessel ischemia. There is enlargement of the lateral ventricles and the third ventricle but not out of proportion to the enlargement of the cerebral sulci. This is consistent with a mild degree of generalized volume loss. The optic nerves demonstrate symmetric signal intensity and size. The imaged portions of the paranasal sinuses are normally aerated. The bilateral parotid spaces exhibit normal signal intensity. The cerebral vascular flow voids are patent. There is normal enhancement within the deep venous sinuses. The postcontrast T1-weighted images are normal. IMPRESSION: 1. There are multiple areas of acute to subacute cerebral infarction without evidence of overt hemorrhagic transformation demonstrated within the mesial left temporal lobe, left hippocampus, posterior limb of the left internal capsule, right caudate nucleus, right anterior limb of the internal capsule, and the ventral right putamen. 2. The images are degraded by motion. 3. There is mild degree of chronic small vessel ischemia and mild degree of generalized volume loss. 4. There is no evidence of brain mass. The critical result notification system was initiated by Dr. Pelon Jones at 15:29 hrs on 05/11/2018. The above findings were discussed with Luciana Leiva by Dr. Pelon Jones at 15:39 hrs on 05/11/2018.
--- NOTE | 2018-05-11 15:46 | MRI Report ---
Procedure Date: 05/11/2018 Accession Number: [id number] / [id number] Procedure: MRI - Angio Neck W/WO (MRA) CPT Code: FULL RESULT: EXAM: MR ANGIOGRAM NECK WITHOUT AND WITH CONTRAST. EXAM DATE: 05/11/2018 02:00 PM. CLINICAL HISTORY: AMS. COMPARISON: MRI of the brain without and with contrast performed on the same day.. TECHNIQUE: Multiplanar, multisequence MRA sequences of the neck were performed. Other: None. Post-processing: Multiplanar 3D MIP reconstructions. IV Contrast: 5 mL Gadavist. Evaluation of arterial stenosis is based on a NASCET method of measurement. FINDINGS: The images are degraded by extensive motion. There is a normal configuration of the aortic arch. There is narrowing suggested at the proximal right common carotid artery and proximal right subclavian artery. This is likely overestimated due to a combination of pulsation and motion artifact. I cannot adequately determine degree of stenosis reliably at this location. There is grossly no flow-limiting stenosis within the mid and distal right common carotid artery, carotid bulb or proximal extracranial right internal carotid artery. The right vertebral artery within the neck may be hypoplastic. Overall it is poorly demonstrated. I cannot exclude the possibility of dissection and/or areas of thrombosis within the right vertebral artery within the neck. This can be further evaluated with a CT angiogram of the neck. The left vertebral artery within the neck is grossly without flow-limiting stenosis. However evaluation is limited within the left V1 segment as there is dropout of signal intensity which may be secondary to superimposed areas of pulsation and/or motion artifact versus possibly stenosis. The left common carotid artery is grossly without flow-limiting stenosis. There is tortuosity of the extracranial left internal carotid artery. There does not appear to be flow-limiting stenosis within the left common carotid artery or left carotid bulb but again this is limited due to superimposed motion. Impression: 1. Limited evaluation of the great vessels within the neck due to extensive motion. Areas of pathology could be obscured or distorted. For example there is distortion on the images present within the proximal bilateral common carotid arteries and subclavian arteries greater on the right than left. I cannot reliably exclude stenosis at these sites of artifact. 2. The right vertebral artery is poorly demonstrated within the neck which could be secondary to hypoplasia in combination with motion. However other etiologies such as dissection or thrombosis are not excluded. Further evaluation can be obtained with a CT angiogram of the neck. 3. The left carotid within the neck is grossly without flow-limiting stenosis but again is somewhat limited due to superimposed areas of motion. Likewise the left vertebral artery within the neck is without flow-limiting stenosis but again somewhat limited at the level of the left subclavian artery and origin of the left vertebral. The critical result notification system was initiated by Dr. Pelon Jones at 15:29 hrs on 05/11/18. The above findings and limitations of this exam as well as the recommendations were discussed with the ordering physician Dr. Luciana Leiva by Dr. Jones at 3:37 PM on 05/11/2018.
--- NOTE | 2018-05-11 18:52 | PROVIDER PROGRESS NOTE ---
Subjective - Prog Note Date Prog Note Date: 05/11/18 Prog Note Time: 17:00 - Subjective Pt reports feeling: Improved Subjective: The patient is still lethargic and keep her eyes closed most of the time. She still slurring her words but she is showing some movement on the right side of her body for the first time since admission. She denies any fevers, chills, chest pain, or shortness of breath. Current Medications - Current Medications Current Medications: Active Medications Generic Name Dose Route Start Last Admin Trade Name Freq PRN Reason Stop Dose Admin Aspirin 81 mg 05/11/18 09:00 05/11/18 10:31 Ecotrin PO Not Given DAILY MARCY Carvedilol 3.125 mg 05/11/18 09:00 05/11/18 10:33 Coreg PO Not Given BID MARCY Potassium Chloride/Dextrose/Sod Cl 1,000 mls @ 100 mls/hr 05/10/18 20:00 10/28 18:16 D5.45ns W/20 Meq Kcl IV 100 mls/hr .Q10H MARCY Administration Isosorbide Mononitrate 60 mg 05/11/18 09:00 05/11/18 10:33 Imdur PO Not Given DAILY MARCY Lorazepam 1 mg 05/11/18 12:42 05/11/18 13:15 Ativan Inj (Vial) IVP 1 mg Q1H PRN Administration Anxiety Losartan Potassium 12.5 mg 05/11/18 09:00 05/11/18 10:34 Cozaar PO Not Given DAILY MARCY Mineral Oil 1 applic 05/10/18 21:37 Cavilon TOP PRN PRN Skin Care Morphine Sulfate 2 mg 05/11/18 10:00 05/11/18 18:15 Morphine IVP 2 mg Q4H MARCY Administration Morphine Sulfate 3 mg 05/11/18 15:10 Morphine IVP Q1H PRN PAIN Nitroglycerin 0.4 mg 05/11/18 08:05 Nitrostat SL Q5M PRN Angina Non-Formulary Medication 2 tab 05/11/18 09:00 05/11/18 10:33 Best Cit/Mag/D3/Zn/Shoe Stainer/Yahir/Bor [Citracal-Vit D + Magnesium Tab] PO Not Given BID MARCY Non-Formulary Medication 500 mg 05/11/18 09:00 05/11/18 10:33 D-Manose PO Not Given BID MARCY Ondansetron HCl 4 mg 05/11/18 08:05 Zofran Odt TL TID PRN Nausea / Vomiting Oxycodone HCl 15 - 30 mg 05/11/18 08:11 Roxicodone PO Q3H PRN Breakthrough Pain Polyethylene Glycol 17 gm 05/11/18 09:00 05/11/18 10:34 Miralax PO Not Given DAILY MARCY Sodium Chloride 10 ml 05/10/18 18:15 05/11/18 06:13 Normal Saline Flush 0.9% IVP 30 ml PRN PRN Administration NEEDED PER PROVIDER ORDERS Sodium Chloride 10 ml 05/11/18 01:00 05/11/18 18:16 Normal Saline Flush 0.9% IVP 10 ml 0100,0900,1700 MARCY Administration Temazepam 15 mg 05/10/18 18:15 Restoril PO QPM PRN Insomnia Polyethylene Glycol 3350 [Miralax] 0.5 cap PO DAILY 03/26/15 Ondansetron HCl [Zofran] 4 mg PO TID PRN 11/15/15 Carvedilol 3.125 mg PO BID 03/30/17 Nitroglycerin 0.4 mg SL Q5M PRN 04/27/17 Biotin 5,000 mcg PO TID 05/06/17 Best Cit/Mag/D3/Zn/Shoe Stainer/Yahir/Bor [Citracal-Vit D + Magnesium Tab] 2 tab PO BID Cholecalciferol [Vitamin D3] 5,000 unit PO DAILY 05/06/17 Fexofenadine HCl 180 mg PO DAILY PRN 05/06/17 Guaifenesin [Mucinex] 800 mg PO BID PRN 05/06/17 Sennosides [Senna Lax] 1 tab PO BID 05/06/17 Calcium Carbonate [Tums (Calcium Carbonate 500mg)] 500 mg PO PRN PRN 12/07/17 Fluticasone [Flonase] 1 spray INH DAILY PRN 12/07/17 L.acid/L.casei/B.bif/B.dieter/Fos [Probiotic Blend Capsule] 2 cap PO BID 12/07/17 D-Manose 500 mg PO BID 01/04/18 Losartan Potassium 12.5 mg PO DAILY 01/28/18 Atorvastatin Calcium 40 mg PO QPM 04/14/18 Capecitabine [Xeloda] 1,500 mg PO BID 04/15/18 Capecitabine [Xeloda] 300 mg PO BID 04/15/18 Furosemide 40 mg PO PRN PRN 05/03/18 Aspirin [Aspirin EC] 81 mg PO DAILY 05/10/18 Escitalopram Oxalate [Lexapro] 20 mg PO DAILY 05/10/18 Gabapentin [Neurontin] 100 mg PO 0400,1200,199905/10/18 Gabapentin [Neurontin] 600 mg PO 0400,1200,199905/10/18 Isosorbide Mononitrate [Isosorbide Mononitrate ER] 60 mg PO DAILY 05/10/18 Loratadine [Claritin] 10 mg PO DAILY PRN 05/10/18 Methadone HCl 30 mg PO 0400,1199,199905/10/18 Omeprazole 40 mg PO QDAC 05/10/18 Oxycodone HCl 20 - 40 mg PO Q3H PRN MDD 240MG 05/10/18 Objective - Vital Signs/Intake & Output Reviewed Vital Signs: Yes Vital Signs: Vital Signs x48h Temp Pulse Resp BP Pulse Ox 05/11/18 16:04 37.0 C 102 H 20 131/61 H 97 Intake & Output: Intake & Output 05/08/18 05/09/18 05/10/18 05/11/18 23:59 23:59 23:59 23:59 Intake Total 1999 Output Total 700 300 Balance -700 1700 - Objective General Appearance: positive: No acute distress, Lethargic Eyes Bilateral: positive: Normal inspection, EOMI, No lid inflammation, Conjunctivae nml, No scleral icterus ENT: positive: ENT inspection nml, Pharynx nml, No signs of dehydration Neck: positive: Nml inspection, Thyroid nml, No JVD, Trachea midline. negative : Thyromegaly Respiratory: positive: Chest non-tender, No respiratory distress, Breath sounds nml. negative: Wheezes, Rales, Rhonchi Cardiovascular: positive: Regular rate & rhythm, No murmur, No gallop Abdomen: positive: Non-tender, No organomegaly, Nml bowel sounds, No distention. negative: Guarding, Rebound Back: positive: Nml inspection. negative: CVA tenderness (R), CVA tenderness (L ) Skin: positive: Color nml, No rash, Warm, Dry. negative: Cyanosis Extremities: positive: Non-tender, Full ROM, Nml appearance, No pedal edema Neurologic/Psychiatric: positive: Oriented x3, Weakness, Facial droop, Slurred/ abnml speech - Lab Results Fish Bones: 05/11/18 05:38 05/11/18 05:38 Other Labs: Lab Results x24hrs 05/11/18 05/11/18 Range/Units 05:38 05:38 WBC 2.6 L (4.8-10.8) x10^3/uL RBC 2.74 L (4.20-5.40) 10^6/uL Hgb 8.9 L (12.0-16.0) g/dL Hct 27.4 L (37.0-47.0) % MCV 100.0 H (81.0-99.0) fL MCH 32.5 H (27.0-31.0) pg MCHC 32.5 (32.0-36.0) g/dL RDW 21.6 H (12.0-15.0) % Plt Count 205 (130-450) 10^3/uL MPV 5.7 L (7.9-10.8) fL Sodium 138 (135-145) mmol/L Potassium 3.8 (3.5-5.0) mmol/L Chloride 104 (101-111) mmol/L Carbon Dioxide 31 (21-32) mmol/L Anion Gap 3.0 L (6-13) BUN 14 (6-20) mg/dL Creatinine 1.1 H (0.4-1.0) mg/dL Estimated GFR (MDRD) 50 L (>89) Glucose 111 H (70-100) mg/dL Calcium 8.7 (8.5-10.3) mg/dL - Diagnostic Imaging Diagnostic Imaging Results: positive: Final report reviewed Diagnostic Imaging Comments: EXAM: MRI BRAIN WITHOUT AND WITH CONTRAST EXAM DATE: 05/11/2018 02:00 PM. CLINICAL HISTORY: Altered mental status. COMPARISON: CT scan of the head without contrast 05/10/2018 and 04/14/2018. TECHNIQUE: Multiplanar, multisequence T1-weighted and fluid-sensitive MR sequences of the brain were performed. Sequences optimized for routine evaluation. Other: None. IV Contrast: 5 mL Gadavist. FINDINGS: There is diffusion restriction demonstrated within the left mesial temporal lobe, left hippocampus, posterior limb of the left internal capsule, right caudate nucleus, right anterior limb of the internal capsule, and the ventral right putamen. These would be consistent with areas of acute to subacute cerebral infarction. Recommend correlation with the patient's clinical symptoms. Grossly there does not appear to be overt hemorrhagic transformation within these areas of cerebral infarction. The images are degraded by motion. The corpus callosum is of normal size and configuration. The pituitary and sella are normal. The craniocervical junction is normal. The cerebral vascular flow voids are patent. The FLAIR images demonstrate a few punctate T2 hyperintensities within the subcortical, deep, and periventricular white matter. This is consistent with a mild degree of chronic small vessel ischemia. There is enlargement of the lateral ventricles and the third ventricle but not out of proportion to the enlargement of the cerebral sulci. This is consistent with a mild degree of generalized volume loss. The optic nerves demonstrate symmetric signal intensity and size. The imaged portions of the paranasal sinuses are normally aerated. The bilateral parotid spaces exhibit normal signal intensity. The cerebral vascular flow voids are patent. There is normal enhancement within the deep venous sinuses. The postcontrast T1-weighted images are normal. IMPRESSION: 1. There are multiple areas of acute to subacute cerebral infarction without evidence of overt hemorrhagic transformation demonstrated within the mesial left temporal lobe, left hippocampus, posterior limb of the left internal capsule, right caudate nucleus, right anterior limb of the internal capsule, and the ventral right putamen. 2. The images are degraded by motion. 3. There is mild degree of chronic small vessel ischemia and mild degree of generalized volume loss. 4. There is no evidence of brain mass. EXAM: CT HEAD EXAM DATE: 05/10/2018 04:14 PM. CLINICAL HISTORY: Slurred speech, vision loss. History of metastatic breast cancer. COMPARISON: CT head without contrast 04/14/2018. TECHNIQUE: Multiaxial CT images were obtained from the foramen magnum to the vertex. Reformats: Coronal IV contrast: None. In accordance with CT protocol optimization, one or more of the following dose reduction techniques were utilized for this exam: automated exposure control, adjustment of mA and/or KV based on patient size, or use of iterative reconstructive technique. FINDINGS: Parenchyma: No intraparenchymal hemorrhage. No evidence of mass, midline shift, or CT findings of acute infarction. Whittaker-white differentiation is distinct. Extraaxial Spaces: Normal for age. No subdural or epidural collections identified. Ventricles: Normal in size and position. Sinuses and Orbits: Imaged paranasal sinuses, orbits, and mastoids show no significant abnormality. Bones: No evidence of fracture or calvarial defect. Other: None. IMPRESSION: No acute intracranial abnormality. ABX Reporting Has patient been on IV antibiotics over the past 48 hours?: No Assessment/Plan - Problem List (1) Altered level of consciousness Impression: The patient was found to have 7 distinct areas of acute/subacute infarction on both sides of her brain. She is starting to show some improvement in her right- sided movement but given her stage IV breast cancer she and her spouse have elected for hospice care at this time. There were no signs of brain metastasis seen on the MRI. (3) Anxiety and depression Impression: We will start the patient back on her antidepressant when we feel she is able to safely swallow. (4) Breast cancer metastasized to bone Impression: The patient has stage IV breast cancer and now has had a series of 7 strokes. She is requesting to be discharged home with hospice care. 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 This might be accomplished rectally. At this time we cannot get injectable methadone or oral concentrate methadone. I do believe that due to its properties on the NMDA receptors methadone will be the best choice for the patient's neuropathic pain. (6) Coronary artery disease Impression: The patient had and non-ST elevated myocardial infarction approximately 1 year ago. Will continue on her home medications. (7) Hyperlipidemia Impression: Presumably well-managed and in light of the patient's recent stroke we will increase her atorvastatin to 80 mg daily.
[2018-05-11] MEDS ORDERED: D5.45NS W/20 MEQ KCL 1,000 ML IV SCH (20:45)
[2018-05-11] MEDS ORDERED: FUROSEMIDE 20 MG/2 ML VIAL IVP SCH (20:46)
[2018-05-11] MEDS ORDERED: BISACODYL 10 MG SUPP PR SCH (20:46)
[2018-05-12] MEDS: SODIUM CHLORIDE FLUSH 0.9% 10 ML SYRINGE IVP SCH ×2 (01:04→11:11)
[2018-05-12] MEDS: MORPHINE 2 MG/ML SYRINGE IVP SCH ×3 (02:12→09:44)
[2018-05-12 05:51] LABS: HGB - HEMOGLOBIN 10.5 g/dL (12.0-16.0); MEAN CORPUSCULAR HEMOGLOBIN 33.1 pg (27.0-31.0); MEAN CORPUSCULAR HGB CONC 34.3 g/dL (32.0-36.0); MEAN CORPUSCULAR VOLUME 96.5 fL (81.0-99.0); MEAN PLATELET VOLUME 6.1 fL (7.9-10.8); RED BLOOD COUNT 3.16 10^6/uL (4.20-5.40); RED CELL DISTRIBUTION WIDTH 21.7 % (12.0-15.0); WHITE BLOOD COUNT 5.9 x10^3/uL (4.8-10.8)
[2018-05-12 05:53] LABS: CALCIUM 7.9 mg/dL (8.5-10.3); CREATININE 0.9 mg/dL (0.4-1.0)
[2018-05-12 09:02] VITALS: BP 124/81
[2018-05-12] MEDS: [UNRECOGNIZED DRUG - OTHER] PO SCH (11:09)
[2018-05-12] MEDS: D MANNOSE 500 MG PO SCH (11:09)
[2018-05-12] MEDS: CARVEDILOL 3.125 MG TABLET PO SCH (11:09)
[2018-05-12] MEDS: ASPIRIN EC 81 MG TABLET PO SCH (11:09)
[2018-05-12] MEDS: LOSARTAN 50 MG TABLET PO SCH (11:10)
[2018-05-12] MEDS: ISOSORBIDE MONONITRATE ER 30 MG TABLET PO SCH (11:10)
[2018-05-12] MEDS: POLYETHYLENE GLYCOL 3350 17 GM PACKET PO SCH (11:10)
--- NOTE | 2018-05-12 11:14 | Discharge Plan ---
Discharge Plan Disposition: 01 Home, Self Care Condition: Good Diet: Soft Activity Restrictions: Activity as Tolerated Shower Restrictions: No Driving Restrictions: No Assistance Devices: Wheelchair Weight Bearing: No Weight No Smoking: If you smoke, Please STOP! Call for help. Follow-up with: Noy Ortiz PA [Primary Care Provider] -
[2018-05-12] MEDS: LORazepam 2 MG/ML VIAL IVP PRN (13:22)
--- NOTE | 2018-05-12 18:27 | DISCHARGE SUMMARY ---
Discharge Summary Admit Date: 05/10/18 Discharge Date: 05/12/18 Discharging Provider: Luciana Leiva DO Primary Care Provider: Noy Ortiz Code Status: Do Not Attempt Resuscitation Condition at Discharge: Good Discharge Disposition: 01 Home, Self Care - DIAGNOSES Admission Diagnoses: 1. Altered level of consciousness 2. Allergic rhinitis 3. Anxiety and depression 4. Breast cancer metastasized to bone 5. Chronic pain due to malignant neoplastic disease 6. Coronary artery disease. 7. Hyperlipidemia. Discharge Diagnoses with Status of Each Condition: 1. Altered level of consciousness- As suspected, on MRI it was demonstrated that the patient suffered several cerebrovascular accidents, described as acute to subacute. I suspect that the patient has been having a number of small strokes over the last few weeks which were mostly unnoticed except by her spouse. The MRI of the brain shows 7 distinct areas of infarction. Because of the patient's current history of stage IV breast cancer and the likelihood of continual infarctions, the decision has been made to bring the patient home on hospice for end-of-life care. 2. Allergic rhinitis- The patient is now home on palliative care for end-of- life care. She is not showing any signs of significant allergic rhinitis at this time it does not make sense for her to continue to take these medications if she is not having any symptoms. 3. Anxiety and depression - The patient has been off of Lexapro since her admission and there is no need to restart it at this point. 4. Breast cancer metastasized to bone- Due to the patient's stage IV breast cancer she will be cared for by hospice at this point in time. 5. Chronic pain due to malignant neoplastic disease - At this time the patient' s pain and anxiety appear to be well-managed. And her spouse's request I gave the patient prescriptions for Intensol and concentrated morphine to bridge her until the hospice can bring in their own medications. Will continue with his current care. 6. Coronary artery disease- Patient has a history of an an STEMI with stenting a year ago. At this time there is no need to continue with her aspirin atorvastatin or isosorbide unless she has chest pain. 7. Hyperlipidemia- As the patient is moving into the dying process there is no need to continue with medications for her hyperlipidemia. - HPI History of Present Illness: Mrs. Janell Winters is a 68-year-old female with a history of metastatic breast cancer, currently on chemotherapy with Xeloda, and a history significant for chronic sinusitis, chf, hypothyroidism, depression, anxiety, angina, and coronary artery disease. She Is known to me because I admitted her last month with sepsis. Earlier today she called her partner, who is a nurse, and said that she was having difficulty with her vision, and could not see out of the right side. She was taken by ambulance to the emergency department where she was found to be exhibiting an altered level of consciousness and she has been somnolent since that time. A CAT scan of the head done in the emergency department was negative for any acute pathology. She will be admitted for a full neurologic workup. - HOSPITAL COURSE Hospital Course: The patient is a very pleasant 68-year-old female who is well-known to my service as I had cared for her earlier this year. She came into the hospital after experiencing hemianopsia and although the CT scan of the brain did not show any lesions and a follow-up MRI at the following morning demonstrated 7 distinct areas of infarction. The patient did have right-sided weakness and slurring her speech but was responsive and understood what was being said to her. After many discussions with her spouse the patient has elected for hospice care at home and was discharged home with hospice to start this afternoon. - ALLERGIES Allergies/Adverse Reactions: Allergies Allergy/AdvReac Type Severity Reaction Status Date / Time oxaprozin [From Daypro] Allergy Intermediate Rash Verified 04/14/18 11:42 sulfamethoxazole Allergy Intermediate Rash Verified 04/14/18 11:42 [From Septra] codeine [Codeine] AdvReac Mild Cramps Verified 04/14/18 11:42 erythromycin base AdvReac Mild Cramps Verified 04/14/18 15:57 [Erythromycin Base] meperidine AdvReac Mild Anxiety Verified 04/14/18 15:57 minocycline [Minocycline] AdvReac Mild Cramps Verified 04/14/18 15:57 - MEDICATIONS Home Medications: Ambulatory Orders Medication Instructions Recorded Confirmed Polyethylene Glycol 3350 [Miralax] 0.5 cap PO DAILY 03/26/15 05/10/18 Ondansetron HCl [Zofran] 4 mg PO TID PRN 11/15/15 05/10/18 Carvedilol 3.125 mg PO BID 03/30/17 05/10/18 Nitroglycerin 0.4 mg SL Q5M PRN 04/27/17 05/10/18 Biotin 5,000 mcg PO TID 05/06/17 05/10/18 Best Cit/Mag/D3/Zn/Engine Cleaner/Yahir/Bor 2 tab PO BID 05/06/17 05/10/18 [Citracal-Vit D + Magnesium Tab] Cholecalciferol [Vitamin D3] 5,000 unit PO DAILY 05/06/17 05/10/18 Fexofenadine HCl 180 mg PO DAILY PRN 05/06/17 05/10/18 Guaifenesin [Mucinex] 800 mg PO BID PRN 05/06/17 05/10/18 Sennosides [Senna Lax] 1 tab PO BID 05/06/17 05/10/18 Calcium Carbonate [Tums (Calcium 500 mg PO PRN PRN 12/07/17 05/10/18 Carbonate 500mg)] Fluticasone [Flonase] 1 spray INH DAILY PRN 12/07/17 05/10/18 L.acid/L.casei/B.bif/B.dieter/Fos 2 cap PO BID 12/07/17 05/10/18 [Probiotic Blend Capsule] D-Manose 500 mg PO BID 01/04/18 05/10/18 Losartan Potassium 12.5 mg PO DAILY 01/28/18 05/10/18 Atorvastatin Calcium 40 mg PO QPM 04/14/18 05/10/18 Capecitabine [Xeloda] 1,500 mg PO BID 04/15/18 05/10/18 Capecitabine [Xeloda] 300 mg PO BID 04/15/18 05/10/18 Furosemide 40 mg PO PRN PRN 05/03/18 05/10/18 Aspirin [Aspirin EC] 81 mg PO DAILY 05/10/18 05/10/18 Escitalopram Oxalate [Lexapro] 20 mg PO DAILY 05/10/18 05/10/18 Gabapentin [Neurontin] 100 mg PO 0400,1200,199905/10/18 05/10/18 Gabapentin [Neurontin] 600 mg PO 0400,1200,199905/10/18 05/10/18 Isosorbide Mononitrate [Isosorbide 60 mg PO DAILY 05/10/18 05/10/18 Mononitrate ER] Loratadine [Claritin] 10 mg PO DAILY PRN 05/10/18 05/10/18 Methadone HCl 30 mg PO 0400,1200,2000 05/10/18 05/10/18 Omeprazole 40 mg PO QDAC 05/10/18 05/10/18 Oxycodone HCl 20 - 40 mg PO Q3H PRN MDD 240MG 05/10/18 05/10/18 - PHYSICAL EXAM AT DISCHARGE General Appearance: positive: No acute distress, Lethargic Eyes Bilateral: positive: Normal inspection, EOMI, No lid inflammation, Conjunctivae nml, No scleral icterus ENT: positive: ENT inspection nml, Pharynx nml, No signs of dehydration Neck: positive: Nml inspection, Thyroid nml, No JVD, Trachea midline. negative : Thyromegaly Respiratory: positive: Chest non-tender, No respiratory distress, Breath sounds nml. negative: Wheezes, Rales, Rhonchi Cardiovascular: positive: Regular rate & rhythm, No murmur, No gallop Peripheral Pulses: positive: 1+ Abdomen: positive: Non-tender, No organomegaly, Nml bowel sounds, No distention. negative: Guarding, Rebound Back: positive: Nml inspection. negative: CVA tenderness (R), CVA tenderness (L ) Skin: positive: Color nml, No rash, Warm, Dry. negative: Cyanosis Extremities: positive: Non-tender, Nml appearance, Pedal edema. negative: Full ROM (Patient has very limited right-sided movement) Neurologic/Psychiatric: positive: Oriented x3, Mood/affect nml, Weakness (Right- sided weakness), Facial droop, Depressed mood/affect. negative: Motor nml - LABS Result Diagrams: 05/12/18 05:22 05/12/18 05:22 - DIAGNOSTIC IMAGING Diagnostic Imaging Results: Final report reviewed Diagnostic Imaging Results Comments: EXAM: MRI BRAIN WITHOUT AND WITH CONTRAST EXAM DATE: 05/11/2018 02:00 PM. CLINICAL HISTORY: Altered mental status. COMPARISON: CT scan of the head without contrast 05/10/2018 and 04/14/2018. TECHNIQUE: Multiplanar, multisequence T1-weighted and fluid-sensitive MR sequences of the brain were performed. Sequences optimized for routine evaluation. Other: None. IV Contrast: 5 mL Gadavist. FINDINGS: There is diffusion restriction demonstrated within the left mesial temporal lobe, left hippocampus, posterior limb of the left internal capsule, right caudate nucleus, right anterior limb of the internal capsule, and the ventral right putamen. These would be consistent with areas of acute to subacute cerebral infarction. Recommend correlation with the patient's clinical symptoms. Grossly there does not appear to be overt hemorrhagic transformation within these areas of cerebral infarction. The images are degraded by motion. The corpus callosum is of normal size and configuration. The pituitary and sella are normal. The craniocervical junction is normal. The cerebral vascular flow voids are patent. The FLAIR images demonstrate a few punctate T2 hyperintensities within the subcortical, deep, and periventricular white matter. This is consistent with a mild degree of chronic small vessel ischemia. There is enlargement of the lateral ventricles and the third ventricle but not out of proportion to the enlargement of the cerebral sulci. This is consistent with a mild degree of generalized volume loss. The optic nerves demonstrate symmetric signal intensity and size. The imaged portions of the paranasal sinuses are normally aerated. The bilateral parotid spaces exhibit normal signal intensity. The cerebral vascular flow voids are patent. There is normal enhancement within the deep venous sinuses. The postcontrast T1-weighted images are normal. IMPRESSION: 1. There are multiple areas of acute to subacute cerebral infarction without evidence of overt hemorrhagic transformation demonstrated within the mesial left temporal lobe, left hippocampus, posterior limb of the left internal capsule, right caudate nucleus, right anterior limb of the internal capsule, and the ventral right putamen. 2. The images are degraded by motion. 3. There is mild degree of chronic small vessel ischemia and mild degree of generalized volume loss. 4. There is no evidence of brain mass. EXAM: CT HEAD EXAM DATE: 05/10/2018 04:14 PM. CLINICAL HISTORY: Slurred speech, vision loss. History of metastatic breast cancer. COMPARISON: CT head without contrast 04/14/2018. TECHNIQUE: Multiaxial CT images were obtained from the foramen magnum to the vertex. Reformats: Coronal IV contrast: None. In accordance with CT protocol optimization, one or more of the following dose reduction techniques were utilized for this exam: automated exposure control, adjustment of mA and/or KV based on patient size, or use of iterative reconstructive technique. FINDINGS: Parenchyma: No intraparenchymal hemorrhage. No evidence of mass, midline shift, or CT findings of acute infarction. Whittaker-white differentiation is distinct. Extraaxial Spaces: Normal for age. No subdural or epidural collections identified. Ventricles: Normal in size and position. Sinuses and Orbits: Imaged paranasal sinuses, orbits, and mastoids show no significant abnormality. Bones: No evidence of fracture or calvarial defect. Other: None. IMPRESSION: No acute intracranial abnormality. - FOLLOW UP Follow Up: Follow-up with the hospice care team. - TIME SPENT Time Spent in Discharge (Minutes): 40
== END 2018-05-12 13:50 | disposition home or self-care (01) ==
LOC: EDUNIT# → ED 15:38 → OBS 18:15 → UNDOADMOB 18:15
PROVIDERS: ADMIT Hospitalist; ATTEND Hospitalist
DX: I63.9 Cerebral infarction, unspecified (principal); C50.919 Malignant neoplasm of unspecified site of unspecified female breast; G89.3 Neoplasm related pain (acute) (chronic); C79.51 Secondary malignant neoplasm of bone; J30.9 Allergic rhinitis, unspecified; F41.9 Anxiety disorder, unspecified; F32.9 Major depressive disorder, single episode, unspecified; G81.91 Hemiplegia, unspecified affecting right dominant side; I25.10 Atherosclerotic heart disease of native coronary artery without angina pectoris; I11.0 Hypertensive heart disease with heart failure; I50.9 Heart failure, unspecified; Z95.5 Presence of coronary angioplasty implant and graft; E78.5 Hyperlipidemia, unspecified; I25.2 Old myocardial infarction; Z66 Do not resuscitate; Z92.21 Personal history of antineoplastic chemotherapy; Z79.899 Other long term (current) drug therapy; Z79.82 Long term (current) use of aspirin; Z79.891 Long term (current) use of opiate analgesic; R29.703 NIHSS score 3; R29.810 Facial weakness; R47.81 Slurred speech; H53.47 Heteronymous bilateral field defects
CPT/HCPCS: 36415; 51701; 70450; 70549; 70553; 80048; 80053; 81003; 83690; 85025; 85027; 85610; 85730; 93005; 93306; 96361; 96374; 96375; 96376; 99284; 99285; A9270; A9585; G0378; J2060; J2270; 81001; 87086

== ENCOUNTER 2018-05-12 14:00 | Outpatient (CLI) | payer OTHER, MEDICARE | END 2018-05-12 14:01 | disposition home or self-care (01) | LOC: EMS 14:00 | PROVIDERS: ATTEND Surgery | DX: Z74.01 Bed confinement status (principal); C80.1 Malignant (primary) neoplasm, unspecified | CPT/HCPCS: A0425; A0428 ==